=== PATIENT | female | born 1965 | race American Indian/Alaskan Native ===

== ENCOUNTER 2021-04-04 23:46 | Inpatient (IN) | payer MEDICARE ==
--- NOTE | 2021-04-05 00:08 | Emergency Department Report ---
ED Shortness of Breath HPI - General Chief Complaint: Dyspnea/Respdistress Stated Complaint: CHIRAG Time Seen by Provider: 04/04/21 23:52 Source: patient, EMS Mode of arrival: Stretcher Limitations: No Limitations - History of Present Illness Initial Comments: Patient is a 56-year-old female that presents emergency room with complaints of shortness of breath. Patient states her shortness of breath started 45 minutes ago. Patient dates her shortness breath is severe and worsening. Patient states she is compliant with dialysis. Patient states she is compliant with her medications. Patient denies chest pain. Patient states she cannot catch her breath. Patient brought in by EMS. EMS report received. EMS states that they placed the patient on BiPAP and gave the patient Solu-Medrol and albuterol. States patient has a history of CHF Patient denies recent travel. Patient denies recent international travel. Patient denies exposure to the novel coronavirus. Patient denies sick contacts. Patient denies fever and chills. Patient denies cough. Patient denies diarrhea. Patient denies coming in contact with anybody with symptoms of the novel coronavirus.. MD Complaint: shortness of breath -: Sudden Severity: severe Consistency: constant Improves With: oxygen, rest, upright position Worsens With: exertion Known History Of: congestive heart failure Treatments Prior to Arrival: oxygen, bronchodilator, other (Solu-Medrol) - Related Data Home Oxygen Therapy: No Home Medications Medication Instructions Recorded Confirmed Last Taken Metoprolol [Lopressor] 25 mg PO BID 04/27/14 04/27/14 Unknown Potassium Chloride [Klor-Con] 20 meq PO QDAY 04/27/14 04/27/14 Unknown glyBURIDE/METFORMIN HCL 1 tab PO BID 04/27/14 04/27/14 Unknown [Glucovance 5-500 mg] Previous Rx's Medication Instructions Recorded Last Taken Type glyBURIDE [Diabeta] 5 mg PO DAILY #90 tablet 04/27/14 Unknown Rx levoFLOXacin [Levaquin TAB] 500 mg PO QDAY #7 tablet 04/27/14 Unknown Rx Allergies Allergy/AdvReac Type Severity Reaction Status Date / Time No Known Allergies Allergy Verified 04/05/21 04:04 ED Review of Systems ROS: Stated complaint: CHIRAG Other details as noted in HPI Constitutional: denies: chills, fever Eyes: denies: eye pain, eye discharge, vision change ENT: denies: ear pain, throat pain Respiratory: see HPI, shortness of breath, SOB with exertion, SOB at rest. denies: cough, wheezing Cardiovascular: as per HPI, dyspnea on exertion. denies: chest pain, palpitations Endocrine: no symptoms reported Gastrointestinal: denies: abdominal pain, nausea, diarrhea Genitourinary: denies: urgency, dysuria, discharge Musculoskeletal: denies: back pain, joint swelling, arthralgia Skin: denies: rash, lesions Neurological: denies: headache, weakness, paresthesias Psychiatric: denies: anxiety, depression Hematological/Lymphatic: denies: easy bleeding, easy bruising ED Past Medical Hx - Past Medical History Previous Medical History?: Yes Hx Hypertension: Yes Hx Diabetes: Yes Additional medical history: anemia - Surgical History Past Surgical History?: Yes Additional Surgical History: - Family History Family history: no significant - Social History Smoking Status: Current Every Day Smoker (occasional) Substance Use Type: None - Medications Home Medications: Home Medications Medication Instructions Recorded Confirmed Last Taken Type Metoprolol [Lopressor] 25 mg PO BID 04/27/14 04/27/14 Unknown History Potassium Chloride [Klor-Con] 20 meq PO QDAY 04/27/14 04/27/14 Unknown History glyBURIDE [Diabeta] 5 mg PO DAILY #90 tablet 04/27/14 Unknown Rx glyBURIDE/METFORMIN HCL 1 tab PO BID 04/27/14 04/27/14 Unknown History [Glucovance 5-500 mg] levoFLOXacin [Levaquin TAB] 500 mg PO QDAY #7 tablet 04/27/14 Unknown Rx ED Physical Exam - General Limitations: No Limitations General appearance: alert, in distress - Head Head exam: Present: atraumatic, normocephalic - Eye Eye exam: Present: normal appearance - ENT ENT exam: Present: mucous membranes dry - Neck Neck exam: Present: normal inspection - Respiratory Respiratory exam: Present: respiratory distress, rales - Cardiovascular Cardiovascular Exam: Present: regular rate, normal rhythm. Absent: systolic murmur, diastolic murmur, rubs, gallop - GI/Abdominal GI/Abdominal exam: Present: soft, normal bowel sounds - Extremities Exam Extremities exam: Present: normal inspection - Back Exam Back exam: Present: normal inspection - Neurological Exam Neurological exam: Present: alert, oriented X3 - Psychiatric Psychiatric exam: Present: normal affect, normal mood - Skin Skin exam: Present: warm, dry, intact, normal color. Absent: rash ED Course Vital Signs 04/04/21 04/05/21 04/05/21 23:58 00:00 00:16 Temperature Pulse Rate 122 H 119 H 99 H Respiratory 30 H 30 H 23 Rate Blood Pressure 204/102 O2 Sat by Pulse 100 82 L Oximetry 04/05/21 04/05/21 04/05/21 00:19 00:36 00:43 Temperature Pulse Rate 91 H 99 H Respiratory 23 22 28 H Rate Blood Pressure 162/84 O2 Sat by Pulse 99 98 99 Oximetry 04/05/21 04/05/21 04/05/21 00:46 01:00 01:16 Temperature Pulse Rate 99 H 95 H 101 H Respiratory 19 23 26 H Rate Blood Pressure 170/80 164/79 165/84 O2 Sat by Pulse 99 99 100 Oximetry 04/05/21 04/05/21 04/05/21 01:30 01:44 01:46 Temperature Pulse Rate 95 H 95 H 93 H Respiratory 26 H 24 Rate Blood Pressure 185/98 173/86 O2 Sat by Pulse 99 100 Oximetry 04/05/21 04/05/21 04/05/21 02:00 02:16 02:30 Temperature Pulse Rate 91 H 86 88 Respiratory 20 20 20 Rate Blood Pressure 172/84 173/87 163/80 O2 Sat by Pulse 100 100 100 Oximetry 04/05/21 04/05/21 04/05/21 02:40 02:50 03:00 Temperature Pulse Rate 92 H 87 88 Respiratory 22 18 20 Rate Blood Pressure 163/80 185/92 184/91 O2 Sat by Pulse 100 100 100 Oximetry 04/05/21 04/05/21 03:15 03:23 Temperature 97.3 F L Pulse Rate 95 H Respiratory 22 Rate Blood Pressure O2 Sat by Pulse 100 Oximetry - Reevaluation(s) Reevaluation #1: Patient states she is feeling better. Patient is on BiPAP. 04/05/21 00:26 Reevaluation #2: Patient resting in the room. Patient states she is feeling better. Patient's vital signs have improved. Patient's oxygen stable. Patient is still on BiPAP. 04/05/21 01:07 Reevaluation #3: I discussed all results with patient. I discussed plan of care with patient. Patient agrees with plan of care and admission. Patient to be admitted to the hospitalist service. 04/05/21 01:58 - Consultations Consultation #1: Hospitalist consulted for admission. Hospitalist to admit patient. 04/05/21 02:04 ED Medical Decision Making - Lab Data Result diagrams: 04/05/21 01:08 04/05/21 01:08 - EKG Data -: EKG Interpreted by Me EKG shows normal: sinus rhythm, axis, intervals, QRS complexes, ST-T waves Rate: normal - Radiology Data Radiology results: report reviewed, image reviewed interpreted by me: Chest x-ray: No pneumonia, no pneumothorax, no foreign body, no osseous findings, pulmonary edema and congestive changes. CHEST 1 VIEW 0034 INDICATION / CLINICAL INFORMATION: Dyspnea COMPARISON: None available. FINDINGS: SUPPORT DEVICES: None HEART / MEDIASTINUM: Cardiomegaly LUNGS / PLEURA: Congestive changes and pulmonary edema are noted. Bibasilar infiltrates may relate to the congestive process and edema but I cannot exclude pneumonitis. Small bilateral pleural effusions are seen, more on the right. No pneumothorax. ADDITIONAL FINDINGS: No significant additional findings. - Medical Decision Making Patient is a 56-year-old female that presents emergency room with EMS for shortness of breath. Patient found to have breast wellness evaluation. Patient brought in by EMS and EMS had the patient on CPAP and gave the patient albuterol and Solu-Medrol. Patient placed on our BiPAP immediately after initial evaluation. Patient responded well to BiPAP. Patient oxygenation and work to breathe improved. Patient's vital signs improved. Patient had labs done which were consistent with end-stage renal disease. Patient had a chest x-ray which was noted to have cardiomegaly with pulmonary edema. Patient had EKG done which shows normal sinus rhythm and no acute ST changes. I personally reviewed the chest x-ray and the EKG. Patient admitted to the hospital service for further evaluation treatment. Critical care time documented due to the multiple reassessments, prolonged time at the bedside, interpretation of diagnostics and labs. - Differential Diagnosis CHF, pneumonia, volume overload, shortness of breath Critical Care Time: Yes Critical care time in (mins) excluding proc time.: 35 Critical care attestation.: If time is entered above; I have spent that time in minutes in the direct care of this critically ill patient, excluding procedure time. Critical Care Time: 35 minutes ED Disposition Clinical Impression: Shortness of breath, ESRD (end stage renal disease) on dialysis Respiratory failure Qualifiers: Chronicity: acute Respiratory failure complication: hypoxia Qualified Code(s): J96.01 - Acute respiratory failure with hypoxia CHF exacerbation Qualifiers: Heart failure type: unspecified Qualified Code(s): I50.9 - Heart failure, unspecified Pulmonary edema Qualifiers: Chronicity: acute Qualified Code(s): J81.0 - Acute pulmonary edema Anemia Qualifiers: Anemia type: unspecified type Qualified Code(s): D64.9 - Anemia, unspecified Disposition: DC-09 OP ADMIT IP TO THIS HOSP Is pt being admited?: Yes Does the pt Need Aspirin: No Condition: Critical Time of Disposition: 02:14
--- NOTE | 2021-04-05 01:00 | XRay Report ---
CHEST 1 VIEW 0034 INDICATION / CLINICAL INFORMATION: Dyspnea COMPARISON: None available. FINDINGS: SUPPORT DEVICES: None HEART / MEDIASTINUM: Cardiomegaly LUNGS / PLEURA: Congestive changes and pulmonary edema are noted. Bibasilar infiltrates may relate to the congestive process and edema but I cannot exclude pneumonitis. Small bilateral pleural effusions are seen, more on the right. No pneumothorax. ADDITIONAL FINDINGS: No significant additional findings. Signer Name: Curly Crook MD Signed: 04/05/2021 12:56 AM Workstation Name: [id number]
[2021-04-05 01:16] LABS: Hematocrit 23.6 % (30.3-42.9); Hemoglobin 7.9 gm/dl (10.1-14.3); Mean Corpuscular HGB Conc 34 % (30-34); Mean Corpuscular Volume 90 fl (79-97); Platelet Count 172 K/mm3 (140-440); Red Blood Count 2.62 M/mm3 (3.65-5.03); Red Cell Distribution Width 16.5 % (13.2-15.2)
[2021-04-05 01:40] LABS: Albumin 3.9 g/dL (3.9-5); Calcium 8.9 mg/dL (8.4-10.2)
[2021-04-05 01:59] LABS: Anisocytosis RARE; Total Cells Counted 100
[2021-04-05] MEDS ORDERED: ONDANSETRON 4 MG/2 ML INJ IV PRN (02:55)
[2021-04-05] MEDS ORDERED: ACETAMINOPHEN 325 MG TAB PO PRN (02:55)
[2021-04-05] MEDS ORDERED: DEXTROSE 50% IN WATER (25GM) 50 ML SYRINGE IV PRN ×2 (02:55→03:45)
[2021-04-05] MEDS ORDERED: oxyCODONE /ACETAMINOPHEN 5-325MG TAB PO PRN (02:55)
[2021-04-05] MEDS ORDERED: ALBUTEROL 2.5 MG/3 ML NEBU IH PRN (02:55)
--- NOTE | 2021-04-05 03:56 | History and Physical Report ---
History of Present Illness Date of examination: 04/05/21 Date of admission: 04/05/21 02:15 Chief complaint: Dyspnea Respiratory distress History of present illness: 56-year-old female with past medical history of CHF and end-stage renal disease on hemodialysis was brought emergency room with complaints of shortness of breath that started 45 minutes ago. Patient dates her shortness breath is severe and worsening. Patient states she is compliant with dialysis. Patient states she is compliant with her medications. Patient denies chest pain. Patient states she cannot catch her breath. EMS states that they placed the patient on BiPAP and gave the patient Solu-Medrol and albuterol. In the emergency room patient is found to have acute CHF exacerbation. We will put the patient on BiPAP also patient BUN is 45 and creatinine 5.6 will consult nephrology for hemodialysis in the morning Past History Past Medical History: anemia, diabetes, ESRD, heart failure, hypertension Medications and Allergies Allergies Allergy/AdvReac Type Severity Reaction Status Date / Time No Known Allergies Allergy Unverified 04/22/14 17:54 Home Medications Medication Instructions Recorded Confirmed Last Taken Type Metoprolol [Lopressor] 25 mg PO BID 04/27/14 04/27/14 Unknown History Potassium Chloride [Klor-Con] 20 meq PO QDAY 04/27/14 04/27/14 Unknown History glyBURIDE [Diabeta] 5 mg PO DAILY #90 tablet 04/27/14 Unknown Rx glyBURIDE/METFORMIN HCL 1 tab PO BID 04/27/14 04/27/14 Unknown History [Glucovance 5-500 mg] levoFLOXacin [Levaquin TAB] 500 mg PO QDAY #7 tablet 04/27/14 Unknown Rx Active Meds: Active Medications Acetaminophen (Acetaminophen 325 Mg Tab) 650 mg PO Q4H PRN PRN Reason: Pain MILD(1-3)/Fever >100.5/JAMA Albuterol (Albuterol 2.5 Mg/3 Ml Nebu) 2.5 mg IH Q3HRT PRN PRN Reason: Shortness Of Breath Albuterol/Ipratropium (Ipratropium/Albuterol Sulfate 3 Ml Ampul.Neb) 1 ampul IH Q6HRT PETE Budesonide (Budesonide 0.5 Mg/2 Ml Nebu) 0.5 mg IH Q12HRT PETE Dextrose (Dextrose 50% In Water (25gm) 50 Ml Syringe) 0 ml IV Q30MIN PRN; Protocol PRN Reason: Hypoglycemia Docusate Sodium (Docusate Sodium 100 Mg Cap) 100 mg PO BID [facility] Famotidine (Famotidine 20 Mg/2 Ml Inj) 10 mg IV BID [facility] Insulin Human Lispro (Insulin Lispro 100 Unit/Ml) 0 unit SUB-Q ACHS PETE; Protocol Nicotine (Nicotine 14 Mg/24 Hr Patch) 14 mg TD ONCE ONE Stop: 04/05/21 04:00 Nicotine (Nicotine 14 Mg/24 Hr Patch) 14 mg TD QDAY PETE Ondansetron HCl (Ondansetron 4 Mg/2 Ml Inj) 4 mg IV Q6H PRN PRN Reason: Nausea And Vomiting Oxycodone/Acetaminophen (Oxycodone /Acetaminophen 5-325mg Tab) 1 tab PO Q6H PRN PRN Reason: Pain, Moderate (4-6) Sodium Chloride (Sodium Chloride 0.9% 10 Ml Flush Syringe) 10 ml IV BID PETE Sodium Chloride (Sodium Chloride 0.9% 10 Ml Flush Syringe) 10 ml IV PRN PRN PRN Reason: LINE FLUSH Review of Systems Cardiovascular: edema, shortness of breath, dyspnea on exertion Respiratory: shortness of breath, dyspnea on exertion Exam - Constitutional Vitals: Temp Pulse Resp BP Pulse Ox 86 20 173/87 100 04/05/21 02:16 04/05/21 02:16 04/05/21 02:16 04/05/21 02:16 General appearance: Present: no acute distress, well-nourished - EENT Eyes: Present: PERRL ENT: hearing intact, clear oral mucosa - Neck Neck: Present: supple, normal ROM - Respiratory Respiratory effort: normal Respiratory: bilateral: rales - Cardiovascular Heart Sounds: Present: S1 & S2. Absent: rub, click - Extremities Extremities: pulses symmetrical, No edema Extremity abnormal: edema Peripheral Pulses: within normal limits - Abdominal General gastrointestinal: Present: soft, non-tender, non-distended, normal bowel sounds Female genitourinary: Present: normal - Integumentary Integumentary: Present: clear, warm, dry - Musculoskeletal Musculoskeletal: gait normal, strength equal bilaterally - Psychiatric Psychiatric: appropriate mood/affect, intact judgment & insight - Neurologic Neurologic: CNII-XII intact, moves all extremities HEART Score - HEART Score Troponin: Troponin T 0.025 ng/mL (0.00-0.029) 04/05/21 01:08 Results - Labs CBC & Chem 7: 04/05/21 01:08 04/05/21 01:08 Labs: Laboratory Last Values WBC 11.8 K/mm3 (4.5-11.0) H 04/05/21 01:08 RBC 2.62 M/mm3 (3.65-5.03) L 04/05/21 01:08 Hgb 7.9 gm/dl (10.1-14.3) L 04/05/21 01:08 Hct 23.6 % (30.3-42.9) L 04/05/21 01:08 MCV 90 fl (79-97) 04/05/21 01:08 MCH 30 pg (28-32) 04/05/21 01:08 MCHC 34 % (30-34) 04/05/21 01:08 RDW 16.5 % (13.2-15.2) H 04/05/21 01:08 Plt Count 172 K/mm3 (140-440) 04/05/21 01:08 Add Manual Diff Complete 04/05/21 01:08 Total Counted 100 04/05/21 01:08 Seg Neutrophils % Open Developer Operator 04/05/21 01:08 Seg Neuts % (Manual) 93.0 % (40.0-70.0) H 04/05/21 01:08 Lymphocytes % (Manual) 4.0 % (13.4-35.0) L 04/05/21 01:08 Monocytes % (Manual) 3.0 % (0.0-7.3) 04/05/21 01:08 Nucleated RBC % Not Reportable 04/05/21 01:08 Seg Neutrophils # Man 11.0 K/mm3 (1.8-7.7) H 04/05/21 01:08 Band Neutrophils # 0.0 K/mm3 04/05/21 01:08 Lymphocytes # (Manual) 0.5 K/mm3 (1.2-5.4) L 04/05/21 01:08 Abs React Lymphs (Man) 0.0 K/mm3 04/05/21 01:08 Monocytes # (Manual) 0.4 K/mm3 (0.0-0.8) 04/05/21 01:08 Eosinophils # (Manual) 0.0 K/mm3 (0.0-0.4) 04/05/21 01:08 Basophils # (Manual) 0.0 K/mm3 (0.0-0.1) 04/05/21 01:08 Metamyelocytes # 0.0 K/mm3 04/05/21 01:08 Myelocytes # 0.0 K/mm3 04/05/21 01:08 Promyelocytes # 0.0 K/mm3 04/05/21 01:08 Blast Cells # 0.0 K/mm3 04/05/21 01:08 WBC Morphology Not Reportable 04/05/21 01:08 Hypersegmented Neuts Not Reportable 04/05/21 01:08 Hyposegmented Neuts Not Reportable 04/05/21 01:08 Hypogranular Neuts Not Reportable 04/05/21 01:08 Smudge Cells Not Reportable 04/05/21 01:08 Toxic Granulation Not Reportable 04/05/21 01:08 Toxic Vacuolation Not Reportable 04/05/21 01:08 Dohle Bodies Not Reportable 04/05/21 01:08 Pelger-Huet Anomaly Not Reportable 04/05/21 01:08 Birgit Rods Not Reportable 04/05/21 01:08 Platelet Estimate Not Reportable 04/05/21 01:08 Clumped Platelets Not Reportable 04/05/21 01:08 Plt Clumps, EDTA Not Reportable 04/05/21 01:08 Large Platelets Not Reportable 04/05/21 01:08 Giant Platelets Not Reportable 04/05/21 01:08 Platelet Satelliting Not Reportable 04/05/21 01:08 Plt Morphology Comment Not Reportable 04/05/21 01:08 RBC Morphology Not Reportable 04/05/21 01:08 Dimorphic RBCs Not Reportable 04/05/21 01:08 Polychromasia Not Reportable 04/05/21 01:08 Hypochromasia Not Reportable 04/05/21 01:08 Poikilocytosis Not Reportable 04/05/21 01:08 Anisocytosis Rare 04/05/21 01:08 Microcytosis Not Reportable 04/05/21 01:08 Macrocytosis Not Reportable 04/05/21 01:08 Spherocytes Not Reportable 04/05/21 01:08 Pappenheimer Bodies Not Reportable 04/05/21 01:08 Sickle Cells Not Reportable 04/05/21 01:08 Target Cells Not Reportable 04/05/21 01:08 Tear Drop Cells Not Reportable 04/05/21 01:08 Ovalocytes Not Reportable 04/05/21 01:08 Helmet Cells Not Reportable 04/05/21 01:08 [place] Bodies Not Reportable 04/05/21 01:08 [place] Rings Not Reportable 04/05/21 01:08 Tyson Cells Not Reportable 04/05/21 01:08 Bite Cells Not Reportable 04/05/21 01:08 Crenated Cell Not Reportable 04/05/21 01:08 Elliptocytes Not Reportable 04/05/21 01:08 Acanthocytes (Spur) Not Reportable 04/05/21 01:08 Rouleaux Not Reportable 04/05/21 01:08 Hemoglobin C Crystals Not Reportable 04/05/21 01:08 Schistocytes Not Reportable 04/05/21 01:08 Malaria parasites Not Reportable 04/05/21 01:08 Parrish Bodies Not Reportable 04/05/21 01:08 Hem Pathologist Commnt No 04/05/21 01:08 Sodium 137 mmol/L (137-145) 04/05/21 01:08 Potassium 3.0 mmol/L (3.6-5.0) L 04/05/21 01:08 Chloride 98.6 mmol/L (98-107) 04/05/21 01:08 Carbon Dioxide 25 mmol/L (22-30) 04/05/21 01:08 Anion Gap 16 mmol/L 04/05/21 01:08 BUN 45 mg/dL (7-17) H 04/05/21 01:08 Creatinine 5.6 mg/dL (0.6-1.2) H 04/05/21 01:08 Estimated GFR 10 ml/min 04/05/21 01:08 BUN/Creatinine Ratio 8 % 04/05/21 01:08 Glucose 239 mg/dL (65-100) H 04/05/21 01:08 Calcium 8.9 mg/dL (8.4-10.2) 04/05/21 01:08 Total Bilirubin 0.40 mg/dL (0.1-1.2) 04/05/21 01:08 AST 55 units/L (5-40) H 04/05/21 01:08 ALT 51 units/L (7-56) 04/05/21 01:08 Alkaline Phosphatase 93 units/L (35-129) 04/05/21 01:08 Troponin T 0.025 ng/mL (0.00-0.029) 04/05/21 01:08 Total Protein 6.7 g/dL (6.3-8.2) 04/05/21 01:08 Albumin 3.9 g/dL (3.9-5) 04/05/21 01:08 Albumin/Globulin Ratio 1.4 % 04/05/21 01:08 - Imaging and Cardiology Chest x-ray: report reviewed Assessment and Plan VTE prophylaxis?: Chemical Plan of care discussed with patient/family: Yes - Patient Problems (1) CHF exacerbation Current Visit: Yes Status: Acute Qualifiers: Heart failure type: unspecified Qualified Code(s): I50.9 - Heart failure, unspecified Plan to address problem: Admit the patient to the ICU overnight. Put the patient on BiPAP with. We will put the patient on CHF pathway. Fluid restriction. Intake output. DuoNeb by nebulizer every 4 hours as needed. Will consult nephrology for hemodialysis. We also order echocardiogram. If needed will consult cardiology in the morning. We will continue the home medication (2) Pulmonary edema Current Visit: Yes Status: Acute Qualifiers: Chronicity: acute Qualified Code(s): J81.0 - Acute pulmonary edema Plan to address problem: Put the patient on BiPAP with. We will put the patient on CHF pathway. Fluid restriction. Intake output. DuoNeb by nebulizer every 4 hours as needed. Will consult nephrology for hemodialysis. We also order echocardiogram. If needed will consult cardiology in the morning. We will continue the home medication (3) ESRD (end stage renal disease) on dialysis Current Visit: Yes Status: Acute Plan to address problem: We will consult nephrology for hemodialysis. Repeat BMP in the morning. (4) Hypertension Current Visit: Yes Status: Acute Plan to address problem: Metoprolol 25 mg p.o. twice daily. Hydralazine 10 mg IV every 6 hours as needed. We will monitor the blood pressure closely (5) Diabetes 1.5, managed as type 2 Current Visit: Yes Status: Acute Plan to address problem: We will put the patient on 1800 kcal ADA diet. We will continue glyburide 5 mg p.o. daily. Glyburide/metformin 1 tablet p.o. twice daily. We put the patient on Humalog sliding scale with Accu-Chek before meals and at bedtime moderate dose coverage. Will consult diabetic education (6) Anemia Current Visit: Yes Status: Acute Plan to address problem: Anemia most likely secondary to chronic kidney disease. We will recheck the hemoglobin in the morning (7) Shortness of breath Current Visit: Yes Status: Acute Plan to address problem: Put the patient on BiPAP with. We will put the patient on CHF pathway. Fluid restriction. Intake output. DuoNeb by nebulizer every 4 hours as needed. Will consult nephrology for hemodialysis. We also order echocardiogram. If needed will consult cardiology in the morning. We will continue the home medication (8) DVT prophylaxis Current Visit: Yes Status: Acute Plan to address problem: Heparin 5000 units subcu every 8 hours for DVT prophylaxis and Protonix 40 mg p.o. daily for GI prophylaxis. Patient is a full code
[2021-04-05] MEDS ORDERED: NICOTINE 14 MG/24 HR PATCH TD ONE (03:59)
[2021-04-05] MEDS ORDERED: hydrALAZINE 20 MG/1 ML INJ IV PRN (04:06)
[2021-04-05 04:09] LABS: Chol/HDL Ratio 2.13 %
[2021-04-05] MEDS: HEPARIN 5,000 UNIT/1 ML VIAL SUB-Q SCH ×3 (05:37→23:02)
--- NOTE | 2021-04-05 07:02 | Consultation ---
History of Present Illness - Reason for Consult Consult date: 04/05/21 end stage renal disease Requesting physician: SHERRILL TUTTLE - History of Present Illness 56-year-old female with past medical history of CHF and end-stage renal disease on hemodialysis was brought emergency room with complaints of shortness of breath that started 45 minutes ago. Patient dates her shortness breath is severe and worsening. Patient states she is compliant with dialysis. Patient states she is compliant with her medications. Patient denies chest pain. Patient states she cannot catch her breath. EMS states that they placed the patient on BiPAP and gave the patient Solu-Medrol and albuterol. In the emergency room patient is found to have acute CHF exacerbation. We will put the patient on BiPAP also patient BUN is 45 and creatinine 5.6 will consult nephrology for hemodialysis in the morning Past History Past Medical History: anemia, diabetes, ESRD, heart failure, hypertension Review of Systems Cardiovascular: edema, shortness of breath, dyspnea on exertion Respiratory: shortness of breath, dyspnea on exertion Past History Past Medical History: anemia, diabetes, ESRD, heart failure, hypertension Medications and Allergies Allergies Allergy/AdvReac Type Severity Reaction Status Date / Time No Known Allergies Allergy Verified 04/05/21 04:04 Home Medications Medication Instructions Recorded Confirmed Last Taken Type Metoprolol [Lopressor] 25 mg PO BID 04/27/14 04/27/14 Unknown History Potassium Chloride [Klor-Con] 20 meq PO QDAY 04/27/14 04/27/14 Unknown History glyBURIDE [Diabeta] 5 mg PO DAILY #90 tablet 04/27/14 Unknown Rx glyBURIDE/METFORMIN HCL 1 tab PO BID 04/27/14 04/27/14 Unknown History [Glucovance 5-500 mg] levoFLOXacin [Levaquin TAB] 500 mg PO QDAY #7 tablet 04/27/14 Unknown Rx Active Meds: Active Medications Acetaminophen (Acetaminophen 325 Mg Tab) 650 mg PO Q4H PRN PRN Reason: Pain MILD(1-3)/Fever >100.5/JAMA Albuterol (Albuterol 2.5 Mg/3 Ml Nebu) 2.5 mg IH Q3HRT PRN PRN Reason: Shortness Of Breath Albuterol/Ipratropium (Ipratropium/Albuterol Sulfate 3 Ml Ampul.Neb) 1 ampul IH Q6HRT PETE Budesonide (Budesonide 0.5 Mg/2 Ml Nebu) 0.5 mg IH Q12HRT [facility] Dextrose (Dextrose 50% In Water (25gm) 50 Ml Syringe) 0 ml IV Q30MIN PRN; Protocol PRN Reason: Hypoglycemia Docusate Sodium (Docusate Sodium 100 Mg Cap) 100 mg PO BID [facility] Heparin Sodium (Porcine) (Heparin 5,000 Unit/1 Ml Vial) 5,000 unit SUB-Q Q8HR PETE Last Admin: 04/05/21 05:37 Dose: 5,000 unit Documented by: Hydralazine HCl (Hydralazine 20 Mg/1 Ml Inj) 10 mg IV Q6H PRN PRN Reason: htn Last Admin: 04/05/21 05:36 Dose: 10 mg Documented by: Levofloxacin/Dextrose (Levaquin 750mg/150ml) 750 mg in 150 mls @ 100 mls/hr IV Q48HR [facility]; Protocol Insulin Human Lispro (Insulin Lispro 100 Unit/Ml) 0 unit SUB-Q ACHS [facility]; Protocol Metoprolol Tartrate (Metoprolol Tartrate 25 Mg Tab) 25 mg PO BID [facility] Nicotine (Nicotine 14 Mg/24 Hr Patch) 14 mg TD QDAY [facility] Ondansetron HCl (Ondansetron 4 Mg/2 Ml Inj) 4 mg IV Q6H PRN PRN Reason: Nausea And Vomiting Oxycodone/Acetaminophen (Oxycodone /Acetaminophen 5-325mg Tab) 1 tab PO Q6H PRN PRN Reason: Pain, Moderate (4-6) Pantoprazole Sodium (Pantoprazole 40 Mg Inj) 40 mg IV BID [facility] Sodium Chloride (Sodium Chloride 0.9% 10 Ml Flush Syringe) 10 ml IV BID [facility] Sodium Chloride (Sodium Chloride 0.9% 10 Ml Flush Syringe) 10 ml IV PRN PRN PRN Reason: LINE FLUSH Exam - Vital Signs Vital signs: Vital Signs Pulse Resp 122 H 30 H 04/04/21 23:58 04/04/21 23:58 - Physical Exam Narrative exam: General appearance: Present: no acute distress, well-nourished - EENT Eyes: Present: PERRL ENT: hearing intact, clear oral mucosa - Neck Neck: Present: supple, normal ROM - Respiratory Respiratory effort: normal Respiratory: bilateral: rales - Cardiovascular Heart Sounds: Present: S1 & S2. Absent: rub, click - Extremities Extremities: pulses symmetrical, No edema Extremity abnormal: edema Peripheral Pulses: within normal limits - Abdominal General gastrointestinal: Present: soft, non-tender, non-distended, normal bowel sounds Female genitourinary: Present: normal - Integumentary Integumentary: Present: clear, warm, dry - Musculoskeletal Musculoskeletal: gait normal, strength equal bilaterally - Psychiatric Psychiatric: appropriate mood/affect, intact judgment & insight - Neurologic Neurologic: CNII-XII intact, moves all extremities Results - Lab Results 04/05/21 01:08 04/05/21 01:08 Most recent lab results Calcium 8.9 mg/dL (8.4-10.2) 04/05/21 01:08 Assessment and Plan Impression: * ESRD * shortness of breath * volume overload * HTN * Type 2 DM * Anemia in ESRD Plan: * HD today and in am for volume control * uf as tolerated with HD * daily lytes * avoid nephrotoxins * epogen with hd * bp control, amend meds as needed
[2021-04-05] MEDS ORDERED: ALBUMIN HUMAN 25% (25 GM/100 ML) INJ IV PRN (07:07)
[2021-04-05] MEDS ORDERED: EPOETIN ALFA-EPBX 10,000 UNIT/1 ML VIAL IV PRN (07:07)
[2021-04-05] MEDS ORDERED: SODIUM CHLORIDE 0.9% 100 ML IV PRN (07:07)
[2021-04-05] MEDS ORDERED: glyBURIDE 5 MG TAB PO SCH (08:00)
[2021-04-05] MEDS: DOCUSATE SODIUM 100 MG CAP PO SCH ×2 (09:15→23:02)
[2021-04-05] MEDS: levoFLOXacin 500 MG TAB PO SCH (09:15)
[2021-04-05] MEDS: METOPROLOL TARTRATE 25 MG TAB PO SCH ×2 (09:15→23:03)
[2021-04-05] MEDS: cloNIDine 0.1 MG TAB PO SCH ×2 (09:15→23:03)
[2021-04-05] MEDS: PANTOPRAZOLE 40 MG TAB PO SCH (09:16)
[2021-04-05] MEDS: SPIRONOLACTONE 50 MG TAB PO SCH (09:16)
[2021-04-05] MEDS: NICOTINE 14 MG/24 HR PATCH TD SCH (09:18)
[2021-04-05] MEDS: INSULIN LISPRO 100 UNIT/ML SUB-Q SCH ×4 (09:19→22:16)
[2021-04-05] MEDS: BUDESONIDE 0.5 MG/2 ML NEBU IH SCH ×2 (09:44→20:43)
[2021-04-05] MEDS: IPRATROPIUM/ALBUTEROL SULFATE 3 ML AMPUL.NEB IH SCH ×3 (09:44→20:43)
[2021-04-05] MEDS ORDERED: METFORMIN HCL PO SCH (10:00)
[2021-04-05] MEDS ORDERED: GLYBURIDE PO SCH (10:00)
[2021-04-05] MEDS ORDERED: FAMOTIDINE 20 MG/2 ML INJ IV SCH (10:00)
[2021-04-05 11:07] LABS: Hepatitis B Surface Antigen Non-Reactive (Negative); Hepatitis C Virus Antibody Non-Reactive (NonReactive)
--- NOTE | 2021-04-05 11:29 | Progress Note ---
Assessment and Plan Assessment and plan: -- CHF exacerbation Current Visit: Yes Status: Acute Continue antifailure medications, input and output monitoring Fluid overload, supportive care, cardiology consult if needed -- pulmonary edema Current Visit: Yes Status: Acute due to missed hemodialysis, HD per schedule Counseled the importance of adhering to the treatment plan --ESRD (end stage renal disease) on dialysis Current Visit: Yes Status: Acute We will consult nephrology for hemodialysis. Repeat BMP in the morning. --Hypertension/continue antihypertensives Current Visit: Yes Status: Metoprolol 25 mg p.o. twice daily. Hydralazine 10 mg IV every 6 hours as needed. 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 We will recheck the hemoglobin in the morning --Shortness of breath Current Visit: Yes Status: Acute Multifactorial due to fluid overload, pulmonary edema, congestive heart failure Treatment underlying cause --DVT prophylaxis Current Visit: Yes Status: Acute Heparin 5000 units subcu every 8 hours for DVT prophylaxis and GI prophylaxis ;Protonix 40 mg p.o. daily f Patient is a full code Closely monitor the patient and adjust management as needed Plan of care reviewed with the patient and her nurse Supervisor [employer] recommendations noted and appreciated 04/05/2021; hemodialysis per schedule, monitor H&H Patient may be transferred out of [facility] [place] if stable History Interval history: I have seen and examined the patient at the bedside Patient's chart and medications reviewed Patient complains of mild shortness of breath Vital signs noted Hospitalist Physical - Constitutional Vitals: Temp Pulse Resp BP Pulse Ox 97.3 F L 81 26 H 187/97 97 04/05/21 03:15 04/05/21 11:00 04/05/21 11:00 04/05/21 11:00 04/05/21 11:00 General appearance: Present: no acute distress, well-nourished - EENT Eyes: Present: PERRL, EOM intact - Neck Neck: Present: supple, normal ROM - Respiratory Respiratory effort: normal Respiratory: bilateral: diminished, rhonchi, negative: rales, wheezing - Cardiovascular Rhythm: regular Heart Sounds: Present: S1 & S2 - Extremities Extremities: no ischemia, No edema - Abdominal General gastrointestinal: soft, non-tender, non-distended, normal bowel sounds - Integumentary Integumentary: Present: clear, warm - Psychiatric Psychiatric: appropriate mood/affect, cooperative - Neurologic Neurologic: CNII-XII intact, moves all extremities HEART Score - HEART Score Troponin: Troponin T 0.025 ng/mL (0.00-0.029) 04/05/21 01:08 Results - Labs CBC & Chem 7: 04/05/21 01:08 04/05/21 01:08 Labs: Laboratory Last Values WBC 11.8 K/mm3 (4.5-11.0) H 04/05/21 01:08 RBC 2.62 M/mm3 (3.65-5.03) L 04/05/21 01:08 Hgb 7.9 gm/dl (10.1-14.3) L 04/05/21 01:08 Hct 23.6 % (30.3-42.9) L 04/05/21 01:08 MCV 90 fl (79-97) 04/05/21 01:08 MCH 30 pg (28-32) 04/05/21 01:08 MCHC 34 % (30-34) 04/05/21 01:08 RDW 16.5 % (13.2-15.2) H 04/05/21 01:08 Plt Count 172 K/mm3 (140-440) 04/05/21 01:08 Add Manual Diff Complete 04/05/21 01:08 Total Counted 100 04/05/21 01:08 Seg Neutrophils % Meat Team Member 04/05/21 01:08 Seg Neuts % (Manual) 93.0 % (40.0-70.0) H 04/05/21 01:08 Lymphocytes % (Manual) 4.0 % (13.4-35.0) L 04/05/21 01:08 Monocytes % (Manual) 3.0 % (0.0-7.3) 04/05/21 01:08 Nucleated RBC % Not Reportable 04/05/21 01:08 Seg Neutrophils # Man 11.0 K/mm3 (1.8-7.7) H 04/05/21 01:08 Band Neutrophils # 0.0 K/mm3 04/05/21 01:08 Lymphocytes # (Manual) 0.5 K/mm3 (1.2-5.4) L 04/05/21 01:08 Abs React Lymphs (Man) 0.0 K/mm3 04/05/21 01:08 Monocytes # (Manual) 0.4 K/mm3 (0.0-0.8) 04/05/21 01:08 Eosinophils # (Manual) 0.0 K/mm3 (0.0-0.4) 04/05/21 01:08 Basophils # (Manual) 0.0 K/mm3 (0.0-0.1) 04/05/21 01:08 Metamyelocytes # 0.0 K/mm3 04/05/21 01:08 Myelocytes # 0.0 K/mm3 04/05/21 01:08 Promyelocytes # 0.0 K/mm3 04/05/21 01:08 Blast Cells # 0.0 K/mm3 04/05/21 01:08 WBC Morphology Not Reportable 04/05/21 01:08 Hypersegmented Neuts Not Reportable 04/05/21 01:08 Hyposegmented Neuts Not Reportable 04/05/21 01:08 Hypogranular Neuts Not Reportable 04/05/21 01:08 Smudge Cells Not Reportable 04/05/21 01:08 Toxic Granulation Not Reportable 04/05/21 01:08 Toxic Vacuolation Not Reportable 04/05/21 01:08 Dohle Bodies Not Reportable 04/05/21 01:08 Pelger-Huet Anomaly Not Reportable 04/05/21 01:08 Birgit Rods Not Reportable 04/05/21 01:08 Platelet Estimate Not Reportable 04/05/21 01:08 Clumped Platelets Not Reportable 04/05/21 01:08 Plt Clumps, EDTA Not Reportable 04/05/21 01:08 Large Platelets Not Reportable 04/05/21 01:08 Giant Platelets Not Reportable 04/05/21 01:08 Platelet Satelliting Not Reportable 04/05/21 01:08 Plt Morphology Comment Not Reportable 04/05/21 01:08 RBC Morphology Not Reportable 04/05/21 01:08 Dimorphic RBCs Not Reportable 04/05/21 01:08 Polychromasia Not Reportable 04/05/21 01:08 Hypochromasia Not Reportable 04/05/21 01:08 Poikilocytosis Not Reportable 04/05/21 01:08 Anisocytosis Rare 04/05/21 01:08 Microcytosis Not Reportable 04/05/21 01:08 Macrocytosis Not Reportable 04/05/21 01:08 Spherocytes Not Reportable 04/05/21 01:08 Pappenheimer Bodies Not Reportable 04/05/21 01:08 Sickle Cells Not Reportable 04/05/21 01:08 Target Cells Not Reportable 04/05/21 01:08 Tear Drop Cells Not Reportable 04/05/21 01:08 Ovalocytes Not Reportable 04/05/21 01:08 Helmet Cells Not Reportable 04/05/21 01:08 [place] Bodies Not Reportable 04/05/21 01:08 [place] Rings Not Reportable 04/05/21 01:08 Tyson Cells Not Reportable 04/05/21 01:08 Bite Cells Not Reportable 04/05/21 01:08 Crenated Cell Not Reportable 04/05/21 01:08 Elliptocytes Not Reportable 04/05/21 01:08 Acanthocytes (Spur) Not Reportable 04/05/21 01:08 Rouleaux Not Reportable 04/05/21 01:08 Hemoglobin C Crystals Not Reportable 04/05/21 01:08 Schistocytes Not Reportable 04/05/21 01:08 Malaria parasites Not Reportable 04/05/21 01:08 Parrish Bodies Not Reportable 04/05/21 01:08 Hem Pathologist Commnt No 04/05/21 01:08 Sodium 137 mmol/L (137-145) 04/05/21 01:08 Potassium 3.0 mmol/L (3.6-5.0) L 04/05/21 01:08 Chloride 98.6 mmol/L (98-107) 04/05/21 01:08 Carbon Dioxide 25 mmol/L (22-30) 04/05/21 01:08 Anion Gap 16 mmol/L 04/05/21 01:08 BUN 45 mg/dL (7-17) H 04/05/21 01:08 Creatinine 5.6 mg/dL (0.6-1.2) H 04/05/21 01:08 Estimated GFR 10 ml/min 04/05/21 01:08 BUN/Creatinine Ratio 8 % 04/05/21 01:08 Glucose 239 mg/dL (65-100) H 04/05/21 01:08 POC Glucose 204 mg/dL (70-105) H 04/05/21 07:36 Hemoglobin A1c 5.0 % (4-6) 04/05/21 03:37 Calcium 8.9 mg/dL (8.4-10.2) 04/05/21 01:08 Total Bilirubin 0.40 mg/dL (0.1-1.2) 04/05/21 01:08 AST 55 units/L (5-40) H 04/05/21 01:08 ALT 51 units/L (7-56) 04/05/21 01:08 Alkaline Phosphatase 93 units/L (35-129) 04/05/21 01:08 Troponin T 0.025 ng/mL (0.00-0.029) 04/05/21 01:08 Total Protein 6.7 g/dL (6.3-8.2) 04/05/21 01:08 Albumin 3.9 g/dL (3.9-5) 04/05/21 01:08 Albumin/Globulin Ratio 1.4 % 04/05/21 01:08 Triglycerides 104 mg/dL (2-149) 04/05/21 03:37 Cholesterol 145 mg/dL (50-199) 04/05/21 03:37 LDL Cholesterol Direct 63 mg/dL (50-130) 04/05/21 03:37 HDL Cholesterol 68 mg/dL (40-59) H 04/05/21 03:37 Cholesterol/HDL Ratio 2.13 % 04/05/21 03:37 Hepatitis A IgM Ab Non-reactive (NonReactive) 04/05/21 08:27 Hep Bs Antigen Non-reactive (Negative) 04/05/21 08:27 Hep B Core IgM Ab Non-reactive (NonReactive) 04/05/21 08:27 Hepatitis C Antibody Non-reactive (NonReactive) 04/05/21 08:27 Microbiology: Microbiology 04/05/21 06:11 Peripheral/Venous Blood Culture - Preliminary Culture in Progress 04/05/21 03:37 Peripheral/Venous Blood Culture - Preliminary Culture in Progress Active Medications - Current Medications Current Medications: Generic Name Dose Route Start Last Admin Trade Name Freq PRN Reason Stop Dose Admin Acetaminophen 650 mg 04/05/21 02:55 Acetaminophen 325 Mg Tab PO Q4H PRN Pain MILD(1-3)/Fever >100.5/JAMA Albumin Human 25 gm 04/05/21 07:07 Albumin Human 25% (25 Gm/100 Ml) Inj IV AICHA PRN Hypotension Albuterol 2.5 mg 04/05/21 02:55 Albuterol 2.5 Mg/3 Ml Nebu IH Q3HRT PRN Shortness Of Breath Albuterol/Ipratropium 1 ampul 04/05/21 08:00 04/05/21 09:44 Ipratropium/Albuterol Sulfate 3 Ml Ampul.Neb IH 1 ampul Q6HRT PETE Administration Budesonide 0.5 mg 04/05/21 08:00 04/05/21 09:44 Budesonide 0.5 Mg/2 Ml Nebu IH 0.5 mg Q12HRT PETE Administration Clonidine HCl 0.1 mg 04/05/21 10:00 04/05/21 09:15 Clonidine 0.1 Mg Tab PO 0.1 mg Q12HR PETE Administration Dextrose 0 ml 04/05/21 02:55 Dextrose 50% In Water (25gm) 50 Ml Syringe IV Q30MIN PRN Hypoglycemia Protocol Docusate Sodium 100 mg 04/05/21 10:00 04/05/21 09:15 Docusate Sodium 100 Mg Cap PO 100 mg BID PETE Administration Heparin Sodium (Porcine) 5,000 unit 04/05/21 06:00 04/05/21 05:37 Heparin 5,000 Unit/1 Ml Vial SUB-Q 5,000 unit Q8HR PETE Administration Hydralazine HCl 10 mg 04/05/21 04:06 04/05/21 05:36 Hydralazine 20 Mg/1 Ml Inj IV 10 mg Q6H PRN Administration htn Sodium Chloride 100 mls @ 999 mls/hr 04/05/21 07:07 Nacl 0.9% IV AICHA PRN Hypotension Insulin Human Lispro 0 unit 04/05/21 07:30 04/05/21 09:19 Insulin Lispro 100 Unit/Ml SUB-Q 3 unit ACHS PETE Administration Protocol Levofloxacin 500 mg 04/05/21 10:00 04/05/21 09:15 Levofloxacin 500 Mg Tab PO 04/13/21 10:01 500 mg Q48H PETE Administration Protocol Metoprolol Tartrate 25 mg 04/05/21 10:00 04/05/21 09:15 Metoprolol Tartrate 25 Mg Tab PO 25 mg BID PETE Administration Nicotine 14 mg 04/05/21 10:00 04/05/21 09:18 Nicotine 14 Mg/24 Hr Patch TD Not Given QDAY PETE Ondansetron HCl 4 mg 04/05/21 02:55 Ondansetron 4 Mg/2 Ml Inj IV Q6H PRN Nausea And Vomiting Oxycodone/Acetaminophen 1 tab 04/05/21 02:55 Oxycodone /Acetaminophen 5-325mg Tab PO Q6H PRN Pain, Moderate (4-6) Pantoprazole Sodium 40 mg 04/05/21 10:00 04/05/21 09:16 Pantoprazole 40 Mg Tab PO 40 mg BIDAC PETE Administration Sodium Chloride 10 ml 04/05/21 10:00 04/05/21 09:18 Sodium Chloride 0.9% 10 Ml Flush Syringe IV 10 ml BID PETE Administration Sodium Chloride 10 ml 04/05/21 02:55 Sodium Chloride 0.9% 10 Ml Flush Syringe IV PRN PRN LINE FLUSH Spironolactone 50 mg 04/05/21 10:00 04/05/21 09:16 Spironolactone 50 Mg Tab PO 50 mg QDAY PETE Administration Nutrition/Malnutrition Assess - Dietary Evaluation Nutrition/Malnutrition Findings: Nutrition Notes Start: 04/05/21 10:14 Freq: Status: Active Protocol: Document 04/05/21 10:14 (Rec: 04/05/21 10:20 [id number]) Nutrition Notes Need for Assessment generated from: MD Order,Education Initial or Follow up Assessment Current Diagnosis CKD (stage V CKD),Diabetes, Hypertension,Heart Failure Other Pertinent Diagnosis On HD Current Diet Renal, Consistent CHO, Cardiac Labs/Tests POC BG 204 Pertinent Medications Humalog Height 4 ft 9 in Weight 65.12 kg Usual Body Weight 51.25 kg Murphy Body Weight (kg) 38.63 BMI 31.0 Intake Prior to Admission Excellent Weight Status Obese Subjective/Other Information MD order for diet education and ONS. Pt denied diet education and states she sees an RD at HD. Pt says she got sick and missed HD. She reports she follows her fluid restriction. Pt ON bi-pap and unable to eat breakfast. Pt encouraged to drink ONS when off bi-pap. Burn Absent Trauma Absent GI Symptoms None Current % PO Negligible Minimum of two criteria No physical signs of malnutrition #1 Nutrition Diagnosis Inadequate oral intake Etiology CHF As Evidenced by Signs and Symptoms pt on bipap and unable to consume PO Is patient on ventilator? No Is Patient Ambulatory and/or Out of Bed No REE-([facility]-confined to bed) 1344.584 Calculation Used for Recommendations [facility] Additional Notes Protein: (>1.2g/kg AdjBW: 52kg ) >62g Fluid: 1500 ml Nutrition Intervention Change Diet Order: Continue Add Supplement/Snack (indicate name/kcal Nepro BID /protein ) Provides kCal: 850 Provides Protein (gm) 38 Goal #1 Meet at least 75% of protein and energy needs via PO and ONS intakes Anticipated Discharge Needs: Renal, Consistent CHO Follow-Up By: 04/08/21 Additional Comments FU for intakes and ONS tolerance
--- NOTE | 2021-04-05 13:38 | Electrocardiograph Report ---
[facility] Test Date: 2021-04-05 Test Time: 01:40:01 Pat Name: KVNG HAILE Department: Room: A265 1 Gender: F Quality Reviewer: SHANNON : 1965 Requested By: IMELDA RAMOS III Order Number: [id number] Reading MD: Nerissa Dos Santos Measurements Intervals [place] Rate: 95 P: 43 NC: 133 QRS: 5 QRSD: 92 T: -28 QT: 383 QTc: 482 Interpretive Statements Sinus rhythm Nonspecific repol abnormality, diffuse leads No previous ECG available for comparison Electronically Signed On 04-05-2021 13:38:13 EDT by Nerissa Dos Santos
[2021-04-06] MEDS: IPRATROPIUM/ALBUTEROL SULFATE 3 ML AMPUL.NEB IH SCH ×4 (02:27→19:32)
[2021-04-06] MEDS: HEPARIN 5,000 UNIT/1 ML VIAL SUB-Q SCH ×4 (05:33→21:55)
[2021-04-06 08:02] LABS: Basophils % (Auto) 0.3 % (0.0-1.8); Eosinophils % (Auto) 0.5 % (0.0-4.3); Hematocrit 24.3 % (30.3-42.9); Hemoglobin 8.2 gm/dl (10.1-14.3); Lymphocytes # (Auto) 1.2 K/mm3 (1.2-5.4); Lymphocytes % (Auto) 15.5 % (13.4-35.0); Mean Corpuscular HGB Conc 34 % (30-34); Mean Corpuscular Volume 91 fl (79-97); Monocytes # (Auto) 0.3 K/mm3 (0.0-0.8); Monocytes % (Auto) 4.2 % (0.0-7.3); Platelet Count 144 K/mm3 (140-440); Red Blood Count 2.67 M/mm3 (3.65-5.03); Red Cell Distribution Width 16.4 % (13.2-15.2)
[2021-04-06] MEDS: BUDESONIDE 0.5 MG/2 ML NEBU IH SCH ×2 (08:09→19:32)
--- NOTE | 2021-04-06 08:51 | Progress Note ---
Assessment and Plan Assessment and plan: -- CHF exacerbation Current Visit: Yes Status: Acute Continue antifailure medications, input and output monitoring Fluid overload, supportive care, cardiology consult if needed -- pulmonary edema Current Visit: Yes Status: Acute due to missed hemodialysis, HD per schedule Counseled the importance of adhering to the treatment plan --ESRD (end stage renal disease) on dialysis Current Visit: Yes Status: Acute Nephrology evaluated the patient received hemodialysis yesterday Hemodialysis is scheduled again today per nephrology I strongly counseled the patient to comply with medications diet and hem odialysis --Hypertension/continue antihypertensives Current Visit: Yes Status: Metoprolol 25 mg p.o. twice daily. Hydralazine 10 mg IV every 6 hours as needed. 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 We will recheck the hemoglobin in the morning --Shortness of breath Current Visit: Yes Status: Acute Multifactorial due to fluid overload, pulmonary edema, congestive heart failure Hemodialysis per schedule --DVT prophylaxis Current Visit: Yes Status: Acute Heparin 5000 units subcu every 8 hours for DVT prophylaxis and GI prophylaxis ;Protonix 40 mg p.o. daily f Patient is a full code Closely monitor the patient and adjust management as needed Plan of care reviewed with the patient and her nurse Shirt Cleaner recommendations noted and appreciated 04/05/2021; hemodialysis per schedule, monitor H&H Patient may be transferred out of [facility] if stable 04/06/2021; hemodialysis again today Advised to comply with medications diet and dialysis Possible discharge a.m. if stable History Interval history: Patient was admitted with fluid overload worsening shortness of breath due to noncompliance with hemodialysis Patient received hemodialysis yesterday, nephrology evaluated, medications optimized Possible hemodialysis again today Patient feels better , still has some shortness of breath Vital signs reviewed Hospitalist Physical - Constitutional Vitals: Temp Pulse Resp BP Pulse Ox 98.5 F 80 18 164/74 100 04/06/21 03:51 04/06/21 08:09 04/06/21 08:09 04/06/21 03:51 04/06/21 08:09 General appearance: Present: no acute distress, well-nourished - EENT Eyes: Present: PERRL, EOM intact - Neck Neck: Present: supple, normal ROM - Respiratory Respiratory effort: normal Respiratory: bilateral: diminished, rales, negative: rhonchi, wheezing - Cardiovascular Rhythm: regular Heart Sounds: Present: S1 & S2 - Extremities Extremities: no ischemia, No edema - Abdominal General gastrointestinal: soft, non-tender, non-distended, normal bowel sounds - Integumentary Integumentary: Present: clear, warm - Psychiatric Psychiatric: appropriate mood/affect, cooperative - Neurologic Neurologic: moves all extremities HEART Score - HEART Score Troponin: Troponin T 0.025 ng/mL (0.00-0.029) 04/05/21 01:08 Results - Labs CBC & Chem 7: 04/06/21 07:04 04/06/21 07:04 Labs: Laboratory Last Values WBC 8.0 K/mm3 (4.5-11.0) 04/06/21 07:04 RBC 2.67 M/mm3 (3.65-5.03) L 04/06/21 07:04 Hgb 8.2 gm/dl (10.1-14.3) L 04/06/21 07:04 Hct 24.3 % (30.3-42.9) L 04/06/21 07:04 MCV 91 fl (79-97) 04/06/21 07:04 MCH 31 pg (28-32) 04/06/21 07:04 MCHC 34 % (30-34) 04/06/21 07:04 RDW 16.4 % (13.2-15.2) H 04/06/21 07:04 Plt Count 144 K/mm3 (140-440) 04/06/21 07:04 Lymph % (Auto) 15.5 % (13.4-35.0) 04/06/21 07:04 [place] % (Auto) 4.2 % (0.0-7.3) 04/06/21 07:04 Eos % (Auto) 0.5 % (0.0-4.3) 04/06/21 07:04 Baso % (Auto) 0.3 % (0.0-1.8) 04/06/21 07:04 Lymph # (Auto) 1.2 K/mm3 (1.2-5.4) 04/06/21 07:04 [place] # (Auto) 0.3 K/mm3 (0.0-0.8) 04/06/21 07:04 Eos # (Auto) 0.0 K/mm3 (0.0-0.4) 04/06/21 07:04 Baso # (Auto) 0.0 K/mm3 (0.0-0.1) 04/06/21 07:04 Add Manual Diff Complete 04/05/21 01:08 Total Counted 100 04/05/21 01:08 Seg Neutrophils % 79.5 % (40.0-70.0) H 04/06/21 07:04 Seg Neuts % (Manual) 93.0 % (40.0-70.0) H 04/05/21 01:08 Lymphocytes % (Manual) 4.0 % (13.4-35.0) L 04/05/21 01:08 Monocytes % (Manual) 3.0 % (0.0-7.3) 04/05/21 01:08 Nucleated RBC % Not Reportable 04/05/21 01:08 Seg Neutrophils # 6.4 K/mm3 (1.8-7.7) 04/06/21 07:04 Seg Neutrophils # Man 11.0 K/mm3 (1.8-7.7) H 04/05/21 01:08 Band Neutrophils # 0.0 K/mm3 04/05/21 01:08 Lymphocytes # (Manual) 0.5 K/mm3 (1.2-5.4) L 04/05/21 01:08 Abs React Lymphs (Man) 0.0 K/mm3 04/05/21 01:08 Monocytes # (Manual) 0.4 K/mm3 (0.0-0.8) 04/05/21 01:08 Eosinophils # (Manual) 0.0 K/mm3 (0.0-0.4) 04/05/21 01:08 Basophils # (Manual) 0.0 K/mm3 (0.0-0.1) 04/05/21 01:08 Metamyelocytes # 0.0 K/mm3 04/05/21 01:08 Myelocytes # 0.0 K/mm3 04/05/21 01:08 Promyelocytes # 0.0 K/mm3 04/05/21 01:08 Blast Cells # 0.0 K/mm3 04/05/21 01:08 WBC Morphology Not Reportable 04/05/21 01:08 Hypersegmented Neuts Not Reportable 04/05/21 01:08 Hyposegmented Neuts Not Reportable 04/05/21 01:08 Hypogranular Neuts Not Reportable 04/05/21 01:08 Smudge Cells Not Reportable 04/05/21 01:08 Toxic Granulation Not Reportable 04/05/21 01:08 Toxic Vacuolation Not Reportable 04/05/21 01:08 Dohle Bodies Not Reportable 04/05/21 01:08 Pelger-Huet Anomaly Not Reportable 04/05/21 01:08 Birgit Rods Not Reportable 04/05/21 01:08 Platelet Estimate Not Reportable 04/05/21 01:08 Clumped Platelets Not Reportable 04/05/21 01:08 Plt Clumps, EDTA Not Reportable 04/05/21 01:08 Large Platelets Not Reportable 04/05/21 01:08 Giant Platelets Not Reportable 04/05/21 01:08 Platelet Satelliting Not Reportable 04/05/21 01:08 Plt Morphology Comment Not Reportable 04/05/21 01:08 RBC Morphology Not Reportable 04/05/21 01:08 Dimorphic RBCs Not Reportable 04/05/21 01:08 Polychromasia Not Reportable 04/05/21 01:08 Hypochromasia Not Reportable 04/05/21 01:08 Poikilocytosis Not Reportable 04/05/21 01:08 Anisocytosis Rare 04/05/21 01:08 Microcytosis Not Reportable 04/05/21 01:08 Macrocytosis Not Reportable 04/05/21 01:08 Spherocytes Not Reportable 04/05/21 01:08 Pappenheimer Bodies Not Reportable 04/05/21 01:08 Sickle Cells Not Reportable 04/05/21 01:08 Target Cells Not Reportable 04/05/21 01:08 Tear Drop Cells Not Reportable 04/05/21 01:08 Ovalocytes Not Reportable 04/05/21 01:08 Helmet Cells Not Reportable 04/05/21 01:08 [place] Bodies Not Reportable 04/05/21 01:08 [place] Rings Not Reportable 04/05/21 01:08 [place] Cells Not Reportable 04/05/21 01:08 Bite Cells Not Reportable 04/05/21 01:08 Crenated Cell Not Reportable 04/05/21 01:08 Elliptocytes Not Reportable 04/05/21 01:08 Acanthocytes (Spur) Not Reportable 04/05/21 01:08 Rouleaux Not Reportable 04/05/21 01:08 Hemoglobin C Crystals Not Reportable 04/05/21 01:08 Schistocytes Not Reportable 04/05/21 01:08 Malaria parasites Not Reportable 04/05/21 01:08 [place] Bodies Not Reportable 04/05/21 01:08 Hem Pathologist Commnt No 04/05/21 01:08 Sodium 141 mmol/L (137-145) 04/06/21 07:04 Potassium 3.7 mmol/L (3.6-5.0) D 04/06/21 07:04 Chloride 100.6 mmol/L (98-107) 04/06/21 07:04 Carbon Dioxide 28 mmol/L (22-30) 04/06/21 07:04 Anion Gap 16 mmol/L 04/06/21 07:04 BUN 22 mg/dL (7-17) H 04/06/21 07:04 Creatinine 4.1 mg/dL (0.6-1.2) H 04/06/21 07:04 Estimated GFR 14 ml/min 04/06/21 07:04 BUN/Creatinine Ratio 5 % 04/06/21 07:04 Glucose 149 mg/dL (65-100) H 04/06/21 07:04 POC Glucose 133 mg/dL (70-105) H 04/05/21 21:01 Hemoglobin A1c 5.0 % (4-6) 04/05/21 03:37 Calcium 9.0 mg/dL (8.4-10.2) 04/06/21 07:04 Total Bilirubin 0.40 mg/dL (0.1-1.2) 04/05/21 01:08 AST 55 units/L (5-40) H 04/05/21 01:08 ALT 51 units/L (7-56) 04/05/21 01:08 Alkaline Phosphatase 93 units/L (35-129) 04/05/21 01:08 Troponin T 0.025 ng/mL (0.00-0.029) 04/05/21 01:08 Total Protein 6.7 g/dL (6.3-8.2) 04/05/21 01:08 Albumin 3.9 g/dL (3.9-5) 04/05/21 01:08 Albumin/Globulin Ratio 1.4 % 04/05/21 01:08 Triglycerides 104 mg/dL (2-149) 04/05/21 03:37 Cholesterol 145 mg/dL (50-199) 04/05/21 03:37 LDL Cholesterol Direct 63 mg/dL (50-130) 04/05/21 03:37 HDL Cholesterol 68 mg/dL (40-59) H 04/05/21 03:37 Cholesterol/HDL Ratio 2.13 % 04/05/21 03:37 Hepatitis A IgM Ab Non-reactive (NonReactive) 04/05/21 08:27 Hep Bs Antigen Non-reactive (Negative) 04/05/21 08:27 Hep B Core IgM Ab Non-reactive (NonReactive) 04/05/21 08:27 Hepatitis C Antibody Non-reactive (NonReactive) 04/05/21 08:27 Microbiology: Microbiology 04/05/21 06:11 Peripheral/Venous Blood Culture - Preliminary NO GROWTH AFTER 24 HOURS 04/05/21 03:37 Peripheral/Venous Blood Culture - Preliminary NO GROWTH AFTER 24 HOURS Active Medications - Current Medications Current Medications: Generic Name Dose Route Start Last Admin Trade Name Freq PRN Reason Stop Dose Admin Acetaminophen 650 mg 04/05/21 02:55 Acetaminophen 325 Mg Tab PO Q4H PRN Pain MILD(1-3)/Fever >100.5/JAMA Albumin Human 25 gm 04/05/21 07:07 Albumin Human 25% (25 Gm/100 Ml) Inj IV AICHA PRN Hypotension Albuterol 2.5 mg 04/05/21 02:55 Albuterol 2.5 Mg/3 Ml Nebu IH Q3HRT PRN Shortness Of Breath Albuterol/Ipratropium 1 ampul 04/05/21 08:00 04/06/21 08:09 Ipratropium/Albuterol Sulfate 3 Ml Ampul.Neb IH 1 ampul Q6HRT PETE Administration Budesonide 0.5 mg 04/05/21 08:00 04/06/21 08:09 Budesonide 0.5 Mg/2 Ml Nebu IH 0.5 mg Q12HRT PETE Administration Clonidine HCl 0.1 mg 04/05/21 10:00 04/05/21 23:03 Clonidine 0.1 Mg Tab PO 0.1 mg Q12HR PETE Administration Dextrose 0 ml 04/05/21 02:55 Dextrose 50% In Water (25gm) 50 Ml Syringe IV Q30MIN PRN Hypoglycemia Protocol Docusate Sodium 100 mg 04/05/21 10:00 04/05/21 23:02 Docusate Sodium 100 Mg Cap PO 100 mg BID PETE Administration Heparin Sodium (Porcine) 5,000 unit 04/05/21 06:00 04/06/21 05:33 Heparin 5,000 Unit/1 Ml Vial SUB-Q 5,000 unit Q8HR PETE Administration Hydralazine HCl 10 mg 04/05/21 04:06 04/05/21 05:36 Hydralazine 20 Mg/1 Ml Inj IV 10 mg Q6H PRN Administration htn Sodium Chloride 100 mls @ 999 mls/hr 04/05/21 07:07 Nacl 0.9% IV AICHA PRN Hypotension Insulin Human Lispro 0 unit 04/05/21 07:30 04/05/21 22:16 Insulin Lispro 100 Unit/Ml SUB-Q Not Given ACHS [facility] Protocol Levofloxacin 500 mg 04/05/21 10:00 04/05/21 09:15 Levofloxacin 500 Mg Tab PO 04/13/21 10:01 500 mg Q48H PETE Administration Protocol Metoprolol Tartrate 25 mg 04/05/21 10:00 04/05/21 23:03 Metoprolol Tartrate 25 Mg Tab PO 25 mg BID PETE Administration Nicotine 14 mg 04/05/21 10:00 04/05/21 09:18 Nicotine 14 Mg/24 Hr Patch TD Not Given QDAY [facility] Ondansetron HCl 4 mg 04/05/21 02:55 Ondansetron 4 Mg/2 Ml Inj IV Q6H PRN Nausea And Vomiting Oxycodone/Acetaminophen 1 tab 04/05/21 02:55 Oxycodone /Acetaminophen 5-325mg Tab PO Q6H PRN Pain, Moderate (4-6) Pantoprazole Sodium 40 mg 04/05/21 10:00 04/05/21 09:16 Pantoprazole 40 Mg Tab PO 40 mg BIDAC PETE Administration Sodium Chloride 10 ml 04/05/21 10:00 04/05/21 23:04 Sodium Chloride 0.9% 10 Ml Flush Syringe IV 10 ml BID PETE Administration Sodium Chloride 10 ml 04/05/21 02:55 Sodium Chloride 0.9% 10 Ml Flush Syringe IV PRN PRN LINE FLUSH Spironolactone 50 mg 04/05/21 10:00 04/05/21 09:16 Spironolactone 50 Mg Tab PO 50 mg QDAY PETE Administration Nutrition/Malnutrition Assess - Dietary Evaluation Nutrition/Malnutrition Findings: Nutrition Notes Start: 04/05/21 10:14 Freq: Status: Active Protocol: Document 04/05/21 10:14 (Rec: 04/05/21 10:20 [id number]) Nutrition Notes Need for Assessment generated from: MD Order,Education Initial or Follow up Assessment Current Diagnosis CKD (stage V CKD),Diabetes, Hypertension,Heart Failure Other Pertinent Diagnosis On HD Current Diet Renal, Consistent CHO, Cardiac Labs/Tests POC BG 204 Pertinent Medications Humalog Height 4 ft 9 in Weight 65.12 kg Usual Body Weight 51.25 kg [place] Body Weight (kg) 38.63 BMI 31.0 Intake Prior to Admission Excellent Weight Status Obese Subjective/Other Information MD order for diet education and ONS. Pt denied diet education and states she sees an RD at HD. Pt says she got sick and missed HD. She reports she follows her fluid restriction. Pt ON bi-pap and unable to eat breakfast. Pt encouraged to drink ONS when off bi-pap. Burn Absent Trauma Absent GI Symptoms None Current % PO Negligible Minimum of two criteria No physical signs of malnutrition #1 Nutrition Diagnosis Inadequate oral intake Etiology CHF As Evidenced by Signs and Symptoms pt on bipap and unable to consume PO Is patient on ventilator? No Is Patient Ambulatory and/or Out of Bed No REE-([facility]-confined to bed) 1348.584 Calculation Used for Recommendations [facility] Additional Notes Protein: (>1.2g/kg AdjBW: 52kg ) >62g Fluid: 1500 ml Nutrition Intervention Change Diet Order: Continue Add Supplement/Snack (indicate name/kcal Nepro BID /protein ) Provides kCal: 850 Provides Protein (gm) 38 Goal #1 Meet at least 75% of protein and energy needs via PO and ONS intakes Anticipated Discharge Needs: Renal, Consistent CHO Follow-Up By: 04/08/21 Additional Comments FU for intakes and ONS tolerance
[2021-04-06] MEDS: INSULIN LISPRO 100 UNIT/ML SUB-Q SCH ×4 (09:23→21:58)
[2021-04-06] MEDS: PANTOPRAZOLE 40 MG TAB PO SCH ×3 (10:03→19:36)
[2021-04-06] MEDS: SPIRONOLACTONE 50 MG TAB PO SCH (10:04)
[2021-04-06] MEDS: cloNIDine 0.1 MG TAB PO SCH ×3 (10:05→21:48)
[2021-04-06] MEDS: METOPROLOL TARTRATE 25 MG TAB PO SCH ×3 (10:05→21:55)
[2021-04-06] MEDS: DOCUSATE SODIUM 100 MG CAP PO SCH ×3 (10:05→21:54)
[2021-04-06] MEDS: NICOTINE 14 MG/24 HR PATCH TD SCH (10:06)
[2021-04-06] MEDS ORDERED: SODIUM CHLORIDE 0.9% 100 ML IV PRN (10:49)
--- NOTE | 2021-04-06 10:49 | Progress Note ---
Assessment and Plan Impression: * ESRD * shortness of breath * volume overload * HTN * Type 2 DM * Anemia in ESRD Plan: * HD today and TTHSAT and prn for volume control * uf as tolerated with HD * daily lytes * avoid nephrotoxins * epogen with hd * bp control, amend meds as needed * ok to dc after hd today Subjective Date of service: 04/06/21 Interval history: resting in bed today Objective - Exam Narrative Exam: General appearance: Present: no acute distress, well-nourished - EENT Eyes: Present: PERRL ENT: hearing intact, clear oral mucosa - Neck Neck: Present: supple, normal ROM - Respiratory Respiratory effort: normal Respiratory: bilateral: rales - Cardiovascular Heart Sounds: Present: S1 & S2. Absent: rub, click - Extremities Extremities: pulses symmetrical, No edema Extremity abnormal: edema Peripheral Pulses: within normal limits - Abdominal General gastrointestinal: Present: soft, non-tender, non-distended, normal bowel sounds Female genitourinary: Present: normal - Integumentary Integumentary: Present: clear, warm, dry - Musculoskeletal Musculoskeletal: gait normal, strength equal bilaterally - Psychiatric Psychiatric: appropriate mood/affect, intact judgment & insight - Neurologic Neurologic: CNII-XII intact, moves all extremities - Vital Signs Vital signs: Vital Signs - 12hr 04/05/21 04/05/21 04/06/21 23:03 23:04 00:00 Temperature Pulse Rate 92 H 90 122 H Pulse Rate [ Anterior Bilateral Throughout] Pulse Rate [ Posterior Bilateral Throughout] Respiratory Rate Respiratory Rate [Anterior Bilateral Throughout] Respiratory Rate [Posterior Bilateral Throughout] Blood Pressure 155/77 155/77 O2 Sat by Pulse 100 Oximetry 04/06/21 04/06/21 04/06/21 02:30 03:51 08:09 Temperature 98.5 F Pulse Rate 80 Pulse Rate [ 93 H 80 Anterior Bilateral Throughout] Pulse Rate [ 94 H Posterior Bilateral Throughout] Respiratory 18 Rate Respiratory 18 18 Rate [Anterior Bilateral Throughout] Respiratory 18 Rate [Posterior Bilateral Throughout] Blood Pressure 164/74 O2 Sat by Pulse 97 100 Oximetry 04/06/21 04/06/21 10:04 10:05 Temperature Pulse Rate 92 H 92 H Pulse Rate [ Anterior Bilateral Throughout] Pulse Rate [ Posterior Bilateral Throughout] Respiratory Rate Respiratory Rate [Anterior Bilateral Throughout] Respiratory Rate [Posterior Bilateral Throughout] Blood Pressure 149/60 149/60 O2 Sat by Pulse Oximetry - Lab 04/06/21 07:04 04/06/21 07:04 Most recent lab results Calcium 9.0 mg/dL (8.4-10.2) 04/06/21 07:04 Medications & Allergies - Medications Allergies/Adverse Reactions: Allergies No Known Allergies Allergy (Verified 04/05/21 04:04) Home Medications: Home Medications Medication Instructions Recorded Confirmed Last Taken Type Folic Acid/Vit B Complex and C 800 mcg PO DAILY 04/05/21 04/05/21 1 Day Ago History [Dialyvite 800 Chewable Wafer] ~04/04/21 800 mcg Isosorbide Mononitrate ER 60 mg PO DAILY 04/05/21 04/05/21 1 Day Ago History ~04/04/21 Nifedipine ER 60 mg PO DAILY 04/05/21 04/05/21 1 Day Ago History ~04/04/21 Vitamin D2 1.25 mg PO 1XW 04/05/21 04/05/21 1 Day Ago History ~04/04/21 glipiZIDE XL [Glucotrol Xl] 2.5 mg PO DAILY 04/05/21 04/05/21 1 Day Ago History ~04/04/21 Active Medications: Generic Name Dose Route Start Last Admin Trade Name Freq PRN Reason Stop Dose Admin Acetaminophen 650 mg 04/05/21 02:55 Acetaminophen 325 Mg Tab PO Q4H PRN Pain MILD(1-3)/Fever >100.5/JAMA Albumin Human 25 gm 04/05/21 07:07 Albumin Human 25% (25 Gm/100 Ml) Inj IV AICHA PRN Hypotension Albuterol 2.5 mg 04/05/21 02:55 Albuterol 2.5 Mg/3 Ml Nebu IH Q3HRT PRN Shortness Of Breath Albuterol/Ipratropium 1 ampul 04/05/21 08:00 04/06/21 08:09 Ipratropium/Albuterol Sulfate 3 Ml Ampul.Neb IH 1 ampul Q6HRT PETE Administration Budesonide 0.5 mg 04/05/21 08:00 04/06/21 08:09 Budesonide 0.5 Mg/2 Ml Nebu IH 0.5 mg Q12HRT PETE Administration Clonidine HCl 0.1 mg 04/05/21 10:00 04/06/21 10:05 Clonidine 0.1 Mg Tab PO 0.1 mg Q12HR PETE Administration Dextrose 0 ml 04/05/21 02:55 Dextrose 50% In Water (25gm) 50 Ml Syringe IV Q30MIN PRN Hypoglycemia Protocol Docusate Sodium 100 mg 04/05/21 10:00 04/06/21 10:05 Docusate Sodium 100 Mg Cap PO 100 mg BID PETE Administration Heparin Sodium (Porcine) 5,000 unit 04/05/21 06:00 04/06/21 05:33 Heparin 5,000 Unit/1 Ml Vial SUB-Q 5,000 unit Q8HR PETE Administration Hydralazine HCl 10 mg 04/05/21 04:06 04/05/21 05:36 Hydralazine 20 Mg/1 Ml Inj IV 10 mg Q6H PRN Administration htn Sodium Chloride 100 mls @ 999 mls/hr 04/05/21 07:07 Nacl 0.9% IV AICHA PRN Hypotension Insulin Human Lispro 0 unit 04/05/21 07:30 04/06/21 09:23 Insulin Lispro 100 Unit/Ml SUB-Q Not Given ACHS [facility] Protocol Levofloxacin 500 mg 04/05/21 10:00 04/05/21 09:15 Levofloxacin 500 Mg Tab PO 04/13/21 10:01 500 mg Q48H PETE Administration Protocol Metoprolol Tartrate 25 mg 04/05/21 10:00 04/06/21 10:05 Metoprolol Tartrate 25 Mg Tab PO 25 mg BID PETE Administration Nicotine 14 mg 04/05/21 10:00 04/06/21 10:06 Nicotine 14 Mg/24 Hr Patch TD Not Given QDAY PETE Ondansetron HCl 4 mg 04/05/21 02:55 Ondansetron 4 Mg/2 Ml Inj IV Q6H PRN Nausea And Vomiting Oxycodone/Acetaminophen 1 tab 04/05/21 02:55 Oxycodone /Acetaminophen 5-325mg Tab PO Q6H PRN Pain, Moderate (4-6) Pantoprazole Sodium 40 mg 04/05/21 10:00 04/06/21 10:03 Pantoprazole 40 Mg Tab PO 40 mg BIDAC PETE Administration Sodium Chloride 10 ml 04/05/21 10:00 04/05/21 23:04 Sodium Chloride 0.9% 10 Ml Flush Syringe IV 10 ml BID PETE Administration Sodium Chloride 10 ml 04/05/21 02:55 Sodium Chloride 0.9% 10 Ml Flush Syringe IV PRN PRN LINE FLUSH Spironolactone 50 mg 04/05/21 10:00 04/06/21 10:04 Spironolactone 50 Mg Tab PO 50 mg QDAY PETE Administration
[2021-04-06] MEDS ORDERED: EPOETIN ALFA-EPBX 10,000 UNIT/1 ML VIAL IV PRN (10:50)
[2021-04-07] MEDS: HEPARIN 5,000 UNIT/1 ML VIAL SUB-Q SCH (05:13)
[2021-04-07] MEDS: INSULIN LISPRO 100 UNIT/ML SUB-Q SCH ×2 (07:30→11:30)
[2021-04-07] MEDS ORDERED: IPRATROPIUM/ALBUTEROL SULFATE 3 ML AMPUL.NEB IH SCH (08:00)
[2021-04-07] MEDS: BUDESONIDE 0.5 MG/2 ML NEBU IH SCH (08:09)
[2021-04-07] MEDS: PANTOPRAZOLE 40 MG TAB PO SCH (08:13)
[2021-04-07] MEDS: NICOTINE 14 MG/24 HR PATCH TD SCH (09:30)
[2021-04-07 09:31] VITALS: BP 165/68
[2021-04-07] MEDS: DOCUSATE SODIUM 100 MG CAP PO SCH (09:31)
[2021-04-07] MEDS: METOPROLOL TARTRATE 25 MG TAB PO SCH (09:31)
[2021-04-07] MEDS: SPIRONOLACTONE 50 MG TAB PO SCH (09:31)
[2021-04-07] MEDS: levoFLOXacin 500 MG TAB PO SCH (09:31)
[2021-04-07] MEDS: cloNIDine 0.1 MG TAB PO SCH (09:31)
--- NOTE | 2021-04-07 10:59 | Discharge Summary ---
Providers - Providers Date of Admission: 04/05/21 02:15 Date of discharge: 04/07/21 Attending physician: VERA SARMIENTO 04/05/21 02:54 Consult to Physician [CONS] Routine Comment: Consulting Provider: JESSICA DONNELLY Physician Instructions: Reason For Exam: HD mgmt 04/05/21 03:46 Consult to Dietitian/Nutrition [CONS] Routine Physician Instructions: Reason For Exam: Reason for Consult: Diet education 04/05/21 04:11 Consult to Physician [CONS] Routine Comment: Consulting Provider: BEVERLY JEFFERS Physician Instructions: Reason For Exam: esrd Primary care physician: COMMUNICATIONS WRITER Hospitalization Reason for admission: Worsening shortness of breath/fluid overload/ESRD on HD Condition: Stable Pertinent studies: Chest x-ray Procedures: HD per schedule Hospital course: 56-year-old obese female patient with significant past medical history of congestive heart failure, end-stage renal disease was admitted through emergency room with worsening shortness of breath of 1 day duration and fluid overload. Patient claims compliance with her dialysis schedule as well as medications Patient was admitted home medications resumed subsequently evaluated by nephrology and patient underwent hemodialysis Electrolyte imbalances were corrected, patient had [id number] dialysis Symptoms significantly improved, today patient is comfortable no new complaints vital signs stable Physical examination prior to discharge did not have any new changes Cleared by nephrology for discharge and follow-up with them per schedule Stable at discharge Discharge diagnosis; --Mild systolic CHF -unspecified exacerbation Due to fluid overload due to ESRD EF 45 to 50% , hemodialysis per schedule, supportive care -- pulmonary edema due to missed hemodialysis, HD per schedule Counseled the importance of adhering to the treatment plan --ESRD (end stage renal disease) on dialysis Nephrology evaluated the patient received hemodialysis yesterday Hemodialysis is scheduled again today per nephrology --Hypertension/continue antihypertensives Metoprolol 25 mg p.o. twice daily. Hydralazine 10 mg IV every 6 hours as needed. 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 We will recheck the hemoglobin in the morning --Shortness of breath Current Visit: Yes Status: Acute Multifactorial due to fluid overload, pulmonary edema, congestive heart failure. Hemodialysis per schedule --Ongoing tobacco use; Current Visit: Yes Status: Acute Smoking cessation counseling Advised nicotine patch as needed --Obesity BMI 31.5 Partly due to fluid overload, patient may need weight reduction when medically stable --DVT prophylaxis Current Visit: Yes Status: Acute Heparin 5000 units subcu every 8 hours Stable at discharge Disposition: DC-01 TO HOME OR SELFCARE Final Discharge Diagnosis (Prints w/discharge instructions): ESRD on hemodialysis. Hypertension. Type 2 diabetes mellitus. Anemia of chronic disease. Shortness of breath. CHF unspecified. Obesity BMI 31.5. Ongoing tobacco use Time spent for discharge: 35 min Core Measure Documentation - Palliative Care Palliative Care/ Comfort Measures: Not Applicable - Core Measures Any of the following diagnoses?: none Exam - Constitutional Vitals: Temp Pulse Resp BP Pulse Ox 97.6 F 84 16 165/68 95 04/07/21 09:29 04/07/21 09:31 04/07/21 09:29 04/07/21 09:31 04/07/21 09:29 General appearance: Present: no acute distress, well-nourished - EENT Eyes: Present: PERRL, EOM intact - Neck Neck: Present: supple, normal ROM - Respiratory Respiratory effort: normal Respiratory: bilateral: diminished, rales, negative: rhonchi, wheezing - Cardiovascular Rhythm: regular Heart Sounds: Present: S1 & S2 - Extremities Extremities: no ischemia, No edema - Abdominal General gastrointestinal: Present: soft, non-tender, non-distended, normal bowel sounds - Integumentary Integumentary: Present: clear, warm - Musculoskeletal Musculoskeletal: strength equal bilaterally - Psychiatric Psychiatric: appropriate mood/affect, cooperative - Neurologic Neurologic: moves all extremities Plan Activity: advance as tolerated, fall precautions Diet: diabetic, renal Special Instructions: smoking cessation Additional Instructions: Follow renal/dialysis per schedule. Strongly advised to comply with medications diet and follow-up visits. If you have worsening symptoms contact MD or go to the nearest emergency room as needed. Advised smoking cessation, nicotine patch as needed Follow up with: PRIMARY CARE, [Primary Care Provider] - 7 Days BRANT JOHNSTON MD [Staff Physician] - 7 Days Prescriptions: Spironolactone [Aldactone] 50 mg PO QDAY #30 tablet cloNIDine [Catapres] 0.1 mg PO Q12HR #60 tablet Nicotine [Habitrol] 14 mg TD QDAY #30 patch Metoprolol [Lopressor TAB] 25 mg PO BID #60 tablet Pantoprazole [Protonix TAB] 40 mg PO BIDAC #30 tablet
--- NOTE | 2021-04-07 11:58 | Progress Note ---
Assessment and Plan Impression: * ESRD * shortness of breath * volume overload * HTN * Type 2 DM * Anemia in ESRD Plan: * HD today and TTHSAT and prn for volume control * uf as tolerated with HD * daily lytes * avoid nephrotoxins * epogen with hd * bp control, amend meds as needed * ok to dc home Subjective Date of service: 04/07/21 Principal diagnosis: esrd Interval history: resting in bed today Objective - Exam Narrative Exam: General appearance: Present: no acute distress, well-nourished - EENT Eyes: Present: PERRL ENT: hearing intact, clear oral mucosa - Neck Neck: Present: supple, normal ROM - Respiratory Respiratory effort: normal Respiratory: bilateral: rales - Cardiovascular Heart Sounds: Present: S1 & S2. Absent: rub, click - Extremities Extremities: pulses symmetrical, No edema Extremity abnormal: edema Peripheral Pulses: within normal limits - Abdominal General gastrointestinal: Present: soft, non-tender, non-distended, normal bowel sounds Female genitourinary: Present: normal - Integumentary Integumentary: Present: clear, warm, dry - Musculoskeletal Musculoskeletal: gait normal, strength equal bilaterally - Psychiatric Psychiatric: appropriate mood/affect, intact judgment & insight - Neurologic Neurologic: CNII-XII intact, moves all extremities - Vital Signs Vital signs: Vital Signs - 12hr 04/07/21 04/07/21 04/07/21 00:00 02:21 04:00 Temperature Pulse Rate 80 80 Pulse Rate [ Anterior Bilateral Throughout] Respiratory Rate Respiratory Rate [Anterior Bilateral Throughout] Blood Pressure Blood Pressure [Right] O2 Sat by Pulse 94 Oximetry 04/07/21 04/07/21 04/07/21 06:32 08:09 09:29 Temperature 98.3 F 97.6 F Pulse Rate 82 84 Pulse Rate [ 86 Anterior Bilateral Throughout] Respiratory 18 16 Rate Respiratory 18 Rate [Anterior Bilateral Throughout] Blood Pressure 173/64 Blood Pressure 165/68 [Right] O2 Sat by Pulse 93 95 95 Oximetry 04/07/21 09:31 Temperature Pulse Rate 84 Pulse Rate [ Anterior Bilateral Throughout] Respiratory Rate Respiratory Rate [Anterior Bilateral Throughout] Blood Pressure 165/68 Blood Pressure [Right] O2 Sat by Pulse Oximetry - Lab 04/06/21 07:04 04/06/21 07:04 Most recent lab results Calcium 9.0 mg/dL (8.4-10.2) 04/06/21 07:04 Medications & Allergies - Medications Allergies/Adverse Reactions: Allergies No Known Allergies Allergy (Verified 04/05/21 04:04) Home Medications: Home Medications Medication Instructions Recorded Confirmed Last Taken Type Folic Acid/Vit B Complex and C 800 mcg PO DAILY 04/05/21 04/05/21 1 Day Ago History [Dialyvite 800 Chewable Wafer] ~04/04/21 800 mcg Isosorbide Mononitrate ER 60 mg PO DAILY 04/05/21 04/05/21 1 Day Ago History ~04/04/21 Nifedipine ER 60 mg PO DAILY 04/05/21 04/05/21 1 Day Ago History ~04/04/21 Vitamin D2 1.25 mg PO 1XW 04/05/21 04/05/21 1 Day Ago History ~04/04/21 glipiZIDE XL [Glucotrol Xl] 2.5 mg PO DAILY 04/05/21 04/05/21 1 Day Ago History ~04/04/21 Active Medications: Generic Name Dose Route Start Last Admin Trade Name Freq PRN Reason Stop Dose Admin Acetaminophen 650 mg 04/05/21 02:55 Acetaminophen 325 Mg Tab PO Q4H PRN Pain MILD(1-3)/Fever >100.5/JAMA Albumin Human 25 gm 04/05/21 07:07 Albumin Human 25% (25 Gm/100 Ml) Inj IV AICHA PRN Hypotension Albuterol 2.5 mg 04/05/21 02:55 Albuterol 2.5 Mg/3 Ml Nebu IH Q3HRT PRN Shortness Of Breath Budesonide 0.5 mg 04/05/21 08:00 04/07/21 08:09 Budesonide 0.5 Mg/2 Ml Nebu IH 0.5 mg Q12HRT PETE Administration Clonidine HCl 0.1 mg 04/05/21 10:00 04/07/21 09:31 Clonidine 0.1 Mg Tab PO 0.1 mg Q12HR PETE Administration Dextrose 0 ml 04/05/21 02:55 Dextrose 50% In Water (25gm) 50 Ml Syringe IV Q30MIN PRN Hypoglycemia Protocol Docusate Sodium 100 mg 04/05/21 10:00 04/07/21 09:31 Docusate Sodium 100 Mg Cap PO 100 mg BID PETE Administration Heparin Sodium (Porcine) 5,000 unit 04/05/21 06:00 04/07/21 05:13 Heparin 5,000 Unit/1 Ml Vial SUB-Q 5,000 unit Q8HR PETE Administration Hydralazine HCl 10 mg 04/05/21 04:06 04/05/21 05:36 Hydralazine 20 Mg/1 Ml Inj IV 10 mg Q6H PRN Administration htn Sodium Chloride 100 mls @ 999 mls/hr 04/06/21 10:49 Nacl 0.9% IV AICHA PRN Hypotension Insulin Human Lispro 0 unit 04/05/21 07:30 04/07/21 07:30 Insulin Lispro 100 Unit/Ml SUB-Q Not Given ACHS PETE Protocol Levofloxacin 500 mg 04/05/21 10:00 04/07/21 09:31 Levofloxacin 500 Mg Tab PO 04/13/21 10:01 500 mg Q48H PETE Administration Protocol Metoprolol Tartrate 25 mg 04/05/21 10:00 04/07/21 09:31 Metoprolol Tartrate 25 Mg Tab PO 25 mg BID PETE Administration Nicotine 14 mg 04/05/21 10:00 04/07/21 09:30 Nicotine 14 Mg/24 Hr Patch TD 14 mg QDAY PETE Administration Ondansetron HCl 4 mg 04/05/21 02:55 Ondansetron 4 Mg/2 Ml Inj IV Q6H PRN Nausea And Vomiting Oxycodone/Acetaminophen 1 tab 04/05/21 02:55 04/06/21 20:41 Oxycodone /Acetaminophen 5-325mg Tab PO 1 tab Q6H PRN Administration Pain, Moderate (4-6) Pantoprazole Sodium 40 mg 04/05/21 10:00 04/07/21 08:13 Pantoprazole 40 Mg Tab PO 40 mg BIDAC PETE Administration Sodium Chloride 10 ml 04/05/21 10:00 04/07/21 09:32 Sodium Chloride 0.9% 10 Ml Flush Syringe IV 10 ml BID PETE Administration Sodium Chloride 10 ml 04/05/21 02:55 Sodium Chloride 0.9% 10 Ml Flush Syringe IV PRN PRN LINE FLUSH Spironolactone 50 mg 04/05/21 10:00 04/07/21 09:31 Spironolactone 50 Mg Tab PO 50 mg QDAY PETE Administration
== END 2021-04-07 14:15 | disposition home or self-care (01) | DRG 291 ==
LOC: ED 23:46 → IMCU 04-05 02:15 → 3A 04-05 21:58
PROVIDERS: ADMIT Hospitalist; ATTEND Internal Medicine
PROC: 5A09357 Assistance with Respiratory Ventilation, Less than 24 Consecutive Hours, Continuous Positive Airway Pressure (ICD-10-PCS; principal; 2021-04-05)
PROC: 5A1D70Z Performance of Urinary Filtration, Intermittent, Less than 6 Hours Per Day (ICD-10-PCS; 2021-04-05)
PROC: 5A1D70Z Performance of Urinary Filtration, Intermittent, Less than 6 Hours Per Day (ICD-10-PCS; 2021-04-06)
DX: I13.2 Hypertensive heart and chronic kidney disease with heart failure and with stage 5 chronic kidney disease, or end stage renal disease (principal); N18.6 End stage renal disease; J81.0 Acute pulmonary edema; J96.01 Acute respiratory failure with hypoxia; I50.23 Acute on chronic systolic (congestive) heart failure; E87.70 Fluid overload, unspecified; E11.22 Type 2 diabetes mellitus with diabetic chronic kidney disease; D63.1 Anemia in chronic kidney disease; E66.9 Obesity, unspecified; F17.200 Nicotine dependence, unspecified, uncomplicated; Z99.2 Dependence on renal dialysis; Z79.899 Other long term (current) drug therapy; Z68.31 Body mass index [BMI] 31.0-31.9, adult; Z71.6 Tobacco abuse counseling
CPT/HCPCS: 36415; 71045; 80048; 80053; 80061; 80074; 82962; 83036; 84484; 85007; 85025; 87040; 93005; 93306; 94640; G0378; J0360; J0885; J1644; J1815

== ENCOUNTER 2022-03-03 08:51 | Observation (INO) | payer OTHER, MEDICARE ==
[2022-03-03] MEDS ORDERED: DEXTROSE 50% IN WATER (25GM) 50 ML SYRINGE IV ONE ×2 (08:55→11:16)
[2022-03-03] MEDS ORDERED: DEXTROSE 10% *Hypoglycemia IV PRN (09:09)
--- NOTE | 2022-03-03 09:11 | Emergency Department Report ---
ED General Adult HPI - General Chief complaint: Hypoglycemia Stated complaint: LOW BLOOD SUGAR Time Seen by Provider: 03/03/22 09:01 Source: patient, EMS ( EMS documentation not available at time of chart dictation ), RN notes reviewed, old records reviewed Mode of arrival: Stretcher Limitations: No Limitations - History of Present Illness Initial comments: Nephrology: Dr. Prudencio Hoskins Past medical history: Diabetes, on Glucotrol, congestive heart failure, pulmonary edema, end-stage renal disease on hemodialysis Thursday, Thursday, Thursday, hypertension This is a pleasant and cooperative 57-year-old female who is due for hemodialysis today, who presents to the ER today with a complaint of painless hypoglycemia. She reports no dietary indiscretions. She reports compliance with her medications. She reportedly had a glucose of 17, which was corrected with IV and oral glucose prior to my personal evaluation. The patient reports that she feels like she is back to her baseline. She does have some shortness of breath, and feels like she is up on her water weight. She reports that she is due for hemodialysis. She did take her sulfonylurea last night as prescribed. -: Sudden Severity scale (0 -10): 0 Consistency: now resolved Improves with: eating - Related Data Home Medications Medication Instructions Recorded Confirmed Last Taken Folic Acid/Vit B Complex and C 800 mcg PO DAILY 04/05/21 04/05/21 1 Day Ago [Dialyvite 800 Chewable Wafer] ~04/04/21 800 mcg Isosorbide Mononitrate ER 60 mg PO DAILY 04/05/21 04/05/21 1 Day Ago ~04/04/21 Nifedipine ER 60 mg PO DAILY 04/05/21 04/05/21 1 Day Ago ~04/04/21 Vitamin D2 1.25 mg PO 1XW 04/05/21 04/05/21 1 Day Ago ~04/04/21 glipiZIDE XL [Glucotrol Xl] 2.5 mg PO DAILY 04/05/21 04/05/21 1 Day Ago ~04/04/21 Previous Rx's Medication Instructions Recorded Last Taken Type Metoprolol [Lopressor TAB] 25 mg PO BID #60 tablet 04/07/21 Unknown Rx Nicotine [Habitrol] 14 mg TD QDAY #30 patch 04/07/21 Unknown Rx Pantoprazole [Protonix TAB] 40 mg PO BIDAC #30 tablet 04/07/21 Unknown Rx Spironolactone [Aldactone] 50 mg PO QDAY #30 tablet 04/07/21 Unknown Rx cloNIDine [Catapres] 0.1 mg PO Q12HR #60 tablet 04/07/21 Unknown Rx Allergies Allergy/AdvReac Type Severity Reaction Status Date / Time No Known Allergies Allergy Verified 03/03/22 08:57 ED Review of Systems ROS: Stated complaint: LOW BLOOD SUGAR Other details as noted in HPI Constitutional: malaise. denies: fever Eyes: denies: eye discharge ENT: congestion Respiratory: shortness of breath Cardiovascular: dyspnea on exertion, edema. denies: chest pain Gastrointestinal: denies: abdominal pain, hematemesis, melena, hematochezia Genitourinary: denies: dysuria Neurological: weakness Hematological/Lymphatic: denies: easy bleeding ED Past Medical Hx - Past Medical History Hx Hypertension: Yes Hx Congestive Heart Failure: Yes Hx Diabetes: Yes Hx Renal Disease: Yes Additional medical history: anemia - Surgical History Additional Surgical History: - Social History Smoking Status: Current Every Day Smoker (occasional) Substance Use Type: None - Medications Home Medications: Home Medications Medication Instructions Recorded Confirmed Last Taken Type Folic Acid/Vit B Complex and C 800 mcg PO DAILY 04/05/21 04/05/21 1 Day Ago History [Dialyvite 800 Chewable Wafer] ~04/04/21 800 mcg Isosorbide Mononitrate ER 60 mg PO DAILY 04/05/21 04/05/21 1 Day Ago History ~04/04/21 Nifedipine ER 60 mg PO DAILY 04/05/21 04/05/21 1 Day Ago History ~04/04/21 Vitamin D2 1.25 mg PO 1XW 04/05/21 04/05/21 1 Day Ago History ~04/04/21 glipiZIDE XL [Glucotrol Xl] 2.5 mg PO DAILY 04/05/21 04/05/21 1 Day Ago History ~04/04/21 Metoprolol [Lopressor TAB] 25 mg PO BID #60 tablet 04/07/21 Unknown Rx Nicotine [Habitrol] 14 mg TD QDAY #30 patch 04/07/21 Unknown Rx Pantoprazole [Protonix TAB] 40 mg PO BIDAC #30 tablet 04/07/21 Unknown Rx Spironolactone [Aldactone] 50 mg PO QDAY #30 tablet 04/07/21 Unknown Rx cloNIDine [Catapres] 0.1 mg PO Q12HR #60 tablet 04/07/21 Unknown Rx ED Physical Exam - General Limitations: Physical Limitation General appearance: alert, in no apparent distress - Head Head exam: Present: atraumatic, normocephalic - Eye Eye exam: Present: normal appearance, EOMI. Absent: nystagmus - ENT ENT exam: Present: normal exam, normal orophraynx, mucous membranes moist, normal external ear exam - Neck Neck exam: Present: normal inspection, full ROM. Absent: tenderness, men ingismus - Respiratory Respiratory exam: Present: rales. Absent: respiratory distress - Cardiovascular Cardiovascular Exam: Present: regular rate, normal rhythm, normal heart sounds, JVD. Absent: bradycardia, tachycardia, irregular rhythm, systolic murmur, diastolic murmur, rubs, gallop - GI/Abdominal GI/Abdominal exam: Present: soft. Absent: distended, tenderness, guarding, re bound, rigid, pulsatile mass - Extremities Exam Extremities exam: Present: normal inspection (Left upper extremity fistula appreciated, appropriate thrill, no redness, pus or streaking.), full ROM, pedal edema (1+ edema in the bilateral lower extremities), other (2+ pulses noted in the bilateral upper and lower extremities. There is no palpable cord. negat dave Homans sign. Muscular compartments are soft. The pelvis is stable.). Absent: calf tenderness - Back Exam Back exam: Present: normal inspection, full ROM. Absent: tenderness, CVA tenderness (R), CVA tenderness (L), paraspinal tenderness, vertebral tenderness - Neurological Exam Neurological exam: Present: alert, oriented X3, other (No facial droop. Tongue midline. Extraocular movements intact bilaterally. Facial sensation intact to light touch in V1, V2, V3 distribution bilaterally. 5 and a 5 strength in 4 extremities. Sensation intact to light touch in 4 extremities.). Absent: motor sensory deficit - Psychiatric Psychiatric exam: Present: anxious - Skin Skin exam: Present: warm, dry, intact, normal color. Absent: rash ED Course Vital Signs 03/03/22 03/03/22 08:56 09:06 Temperature 98.4 F 97.5 F L Pulse Rate 97 H 85 Respiratory 16 16 Rate Blood Pressure 208/108 201/96 [Right] O2 Sat by Pulse 99 96 Oximetry - Reevaluation(s) Reevaluation #1: 03/03/22 10:16 Differential diagnosis, including but not limited to: Pneumonia, CHF, UTI, hypoglycemia, end-stage renal disease on hemodialysis, volume overload, s ulfonylurea induced hypoglycemia Assessment and plan: 57-year-old female with hypoglycemia, now resolved, in the context of sulfonylurea medication use, requires admission for glycemic monitoring. Hold sulfonylureas and antidiabetic medications. Accu-Cheks, as needed glucose. Patient has evidence of volume overload, manifest by JVD, crackles, rales, and chest x-ray finding. Favor congestive heart failure/volume overload over pneumonia clinically. Have recommended admission to the medical service for observation and urgent hemodialysis. Patient is agreeable to this plan of care. Contacted nephrology on-call for patient's primary inside [employer], Dr. Pilar Meyer Discussed the patient's history, physical, and clinical impression. He will follow in consultation and arrange for urgent hemodialysis. Hospital physician, Dr. Parish Adorno to admit for hypoglycemia, end-stage renal disease requiring urgent hemodialysis, and volume overload. 03/03/22 11:10 Patient has recurrent hypoglycemia. Additional dextrose ordered, D10 drip ordered. ED Medical Decision Making - Lab Data Result diagrams: 03/03/22 09:38 03/03/22 09:38 Vital Signs 03/03/22 08:56 Temperature 98.4 F Pulse Rate 97 H Respiratory 16 Rate Blood Pressure 208/108 [Right] O2 Sat by Pulse 99 Oximetry Lab Results 03/03/22 03/03/22 03/03/22 Range/Units 09:38 09:38 09:38 WBC 5.2 (4.5-11.0) K/mm3 RBC 4.95 (3.65-5.03) M/mm3 Hgb 13.1 (10.1-14.3) gm/dl Hct 42.7 (30.3-42.9) % MCV 86 (79-97) fl MCH 27 L (28-32) pg MCHC 31 (30-34) % RDW 17.4 H (13.2-15.2) % Plt Count 151 (140-440) K/mm3 Lymph % (Auto) 5.7 L (13.4-35.0) % Baker % (Auto) 6.1 (0.0-7.3) % Eos % (Auto) 0.8 (0.0-4.3) % Baso % (Auto) 0.9 (0.0-1.8) % Lymph # (Auto) 0.3 L (1.2-5.4) K/mm3 Baker # (Auto) 0.3 (0.0-0.8) K/mm3 Eos # (Auto) 0.0 (0.0-0.4) K/mm3 Baso # (Auto) 0.0 (0.0-0.1) K/mm3 Seg Neutrophils % 86.5 H (40.0-70.0) % Seg Neutrophils # 4.5 (1.8-7.7) K/mm3 Sodium 136 L (137-145) mmol/L Potassium 3.6 (3.6-5.0) mmol/L Chloride 93.2 L (98-107) mmol/L Carbon Dioxide 26 (22-30) mmol/L Anion Gap 20 mmol/L BUN 51 H (7-17) mg/dL Creatinine 7.3 H (0.6-1.2) mg/dL Estimated GFR 7 ml/min BUN/Creatinine Ratio 7 % Glucose 72 (65-100) mg/dL Calcium 10.5 H (8.4-10.2) mg/dL Total Bilirubin 0.30 (0.1-1.2) mg/dL AST 7 (5-40) units/L ALT 6 L (7-56) units/L Alkaline Phosphatase 157 H (35-129) units/L Total Protein 7.2 (6.3-8.2) g/dL Albumin 3.8 L (3.9-5) g/dL Albumin/Globulin Ratio 1.1 % TSH 1.280 (0.270-4.200) mlU/mL - EKG Data -: EKG Interpreted by [facility] EKG shows normal: sinus rhythm Rate: normal - EKG Data 03/03/22 10:13 The EKG is interpreted at 09: 1 4 Sinus rhythm, 84 bpm. Left axis, normal P wave axis, low voltage, poor R wave progression. Abnormal EKG. QTC is prolonged. This is not a STEMI. - Radiology Data Radiology results: report reviewed, image reviewed CHEST 1 VIEW 03/03/2022 9:09 AM INDICATION / CLINICAL INFORMATION: esrd. COMPARISON: 04/05/2021 FINDINGS: Diffuse bilateral pulmonary opacities with right effusion persists. No pneumothorax is seen. IMPRESSION: 1. Bilateral pulmonary opacities and effusions persist Signer Name: Sebastian Macias MD Signed: 03/03/2022 8:31 AM Critical care attestation.: If time is entered above; I have spent that time in minutes in the direct care of this critically ill patient, excluding procedure time. ED Disposition Clinical Impression: ESRD (end stage renal disease) on dialysis, Hypoglycemia, Adverse effect of sulfonylurea, HTN (hypertension) Disposition: 09 ADMITTED INPATIENT Is pt being admited?: Yes Does the pt Need Aspirin: No Condition: Good Instructions: Hypertension (ED)
--- NOTE | 2022-03-03 09:35 | XRay Report ---
CHEST 1 VIEW 03/03/2022 9:09 AM INDICATION / CLINICAL INFORMATION: esrd. COMPARISON: 04/05/2021 FINDINGS: Diffuse bilateral pulmonary opacities with right effusion persists. No pneumothorax is seen. IMPRESSION: 1. Bilateral pulmonary opacities and effusions persist Signer Name: Sebastian Macias MD Signed: 03/03/2022 9:31 AM Workstation Name: [id number]
[2022-03-03] MEDS ORDERED: EPOETIN ALFA-EPBX 10,000 UNIT/1 ML VIAL SUB-Q PRN (10:00)
[2022-03-03] MEDS ORDERED: HEPARIN 10,000 UNITS/10 ML VIAL IV PRN (10:00)
[2022-03-03] MEDS ORDERED: SODIUM CHLORIDE 0.9% 100 ML IV PRN (10:00)
[2022-03-03 10:16] LABS: Basophils % (Auto) 0.9 % (0.0-1.8); Eosinophils % (Auto) 0.8 % (0.0-4.3); Lymphocytes # (Auto) 0.3 K/mm3 (1.2-5.4); Lymphocytes % (Auto) 5.7 % (13.4-35.0); Mean Corpuscular HGB Conc 31 % (30-34); Mean Corpuscular Volume 86 fl (79-97); Monocytes # (Auto) 0.3 K/mm3 (0.0-0.8); Monocytes % (Auto) 6.1 % (0.0-7.3); Platelet Count 151 K/mm3 (140-440); Red Blood Count 4.95 M/mm3 (3.65-5.03); Red Cell Distribution Width 17.4 % (13.2-15.2)
[2022-03-03 10:19] LABS: Albumin 3.8 g/dL (3.9-5); Calcium 10.5 mg/dL (8.4-10.2)
[2022-03-03 10:30] LABS: Hemoglobin 13.1 gm/dl (10.1-14.3)
[2022-03-03 10:31] LABS: Hematocrit 42.7 % (30.3-42.9)
[2022-03-03] MEDS ORDERED: DEXTROSE 50% IN WATER (25GM) 50 ML VIAL IV ONE (11:19)
[2022-03-03] MEDS ORDERED: DEXTROSE 10% IN WATER 1,000 ML IV SCH (12:00)
[2022-03-03] MEDS ORDERED: ONDANSETRON 4 MG/2 ML INJ IV PRN (13:00)
[2022-03-03] MEDS ORDERED: MORPHINE 4 MG/1 ML INJ IV PRN (13:00)
[2022-03-03] MEDS ORDERED: oxyCODONE /ACETAMINOPHEN 5-325MG TAB PO PRN (13:00)
[2022-03-03] MEDS ORDERED: ACETAMINOPHEN 325 MG TAB PO PRN (13:00)
[2022-03-03 14:17] LABS: Hepatitis B Surface Antigen Non-Reactive (Negative); Hepatitis C Virus Antibody Non-Reactive (NonReactive)
--- NOTE | 2022-03-03 14:54 | History and Physical Report ---
History of Present Illness Date of examination: 03/03/22 Date of admission: 03/03/22 10:50 Chief complaint: Hypoglycemia History of present illness: This is a pleasant and cooperative 57-year-old female who is due for hemodialysis today, who presents to the ER today with a complaint of painless hypoglycemia. She reports no dietary indiscretions. She reports compliance with her medications. She reportedly had a glucose of 17, which was corrected with IV and oral glucose prior to my personal evaluation. The patient reports that she feels like she is back to her baseline. She does have some shortness of breath, and feels like she is up on her water weight. She reports that she is due for hemodialysis. She did take her sulfonylurea last night as prescr ibed. Past History Past Medical History: diabetes, dialysis, ESRD Past Surgical History: Other (AV fistula) Social history: lives with family, full code Family history: hypertension Medications and Allergies Allergies Allergy/AdvReac Type Severity Reaction Status Date / Time No Known Allergies Allergy Verified 03/03/22 08:57 Home Medications Medication Instructions Recorded Confirmed Last Taken Type Folic Acid/Vit B Complex and C 800 mcg PO DAILY 04/05/21 04/05/21 1 Day Ago History [Dialyvite 800 Chewable Wafer] ~04/04/21 800 mcg Isosorbide Mononitrate ER 60 mg PO DAILY 04/05/21 04/05/21 1 Day Ago History ~04/04/21 Nifedipine ER 60 mg PO DAILY 04/05/21 04/05/21 1 Day Ago History ~04/04/21 Vitamin D2 1.25 mg PO 1XW 04/05/21 04/05/21 1 Day Ago History ~04/04/21 glipiZIDE XL [Glucotrol Xl] 2.5 mg PO DAILY 04/05/21 04/05/21 1 Day Ago History ~04/04/21 Metoprolol [Lopressor TAB] 25 mg PO BID #60 tablet 04/07/21 Unknown Rx Nicotine [Habitrol] 14 mg TD QDAY #30 patch 04/07/21 Unknown Rx Pantoprazole [Protonix TAB] 40 mg PO BIDAC #30 tablet 04/07/21 Unknown Rx Spironolactone [Aldactone] 50 mg PO QDAY #30 tablet 04/07/21 Unknown Rx cloNIDine [Catapres] 0.1 mg PO Q12HR #60 tablet 04/07/21 Unknown Rx Active Meds: Active Medications Acetaminophen (Acetaminophen 325 Mg Tab) 650 mg PO Q4H PRN PRN Reason: Pain MILD(1-3)/Fever >100.5/JAMA Dextrose (Dextrose 10% *Hypoglycemia) 75 ml IV PRN PRN PRN Reason: Hypoglycemia Epoetin Jak-epbx (Epoetin Jak-Epbx 10,000 Unit/1 Ml Vial) 10,000 unit SUB-Q AICHA PRN PRN Reason: hemodialysis Heparin Sodium (Porcine) (Heparin 10,000 Units/10 Ml Vial) 3,000 unit IV AICHA PRN PRN Reason: hemodialysis Heparin Sodium (Porcine) (Heparin 5,000 Unit/1 Ml Vial) 5,000 unit SUB-Q Q8HR PETE Sodium Chloride (Nacl 0.9%) 100 mls @ 999 mls/hr IV AICHA PRN PRN Reason: Hypotension Dextrose (D10w) 1,000 mls @ 100 mls/hr IV DIRECT PETE Isosorbide Mononitrate (Isosorbide Mononitrate Er 60 Mg Tab) 60 mg PO QDAY PETE Metoprolol Tartrate (Metoprolol Tartrate 25 Mg Tab) 25 mg PO BID PETE Morphine Sulfate (Morphine 4 Mg/1 Ml Inj) 2 mg IV Q4H PRN PRN Reason: Pain , Severe (7-10) Nicotine (Nicotine 14 Mg/24 Hr Patch) 14 mg TD QDAY PETE Nifedipine (Nifedipine Xl 60 Mg Tab) 60 mg PO QDAY PETE Ondansetron HCl (Ondansetron 4 Mg/2 Ml Inj) 4 mg IV Q8H PRN PRN Reason: Nausea And Vomiting Oxycodone/Acetaminophen (Oxycodone /Acetaminophen 5-325mg Tab) 1 tab PO Q6H PRN PRN Reason: Pain, Moderate (4-6) Pantoprazole Sodium (Pantoprazole 40 Mg Tab) 40 mg PO BIDAC PETE Sodium Chloride (Sodium Chloride 0.9% 10 Ml Flush Syringe) 10 ml IV BID PETE Sodium Chloride (Sodium Chloride 0.9% 10 Ml Flush Syringe) 10 ml IV PRN PRN PRN Reason: LINE FLUSH Spironolactone (Spironolactone 50 Mg Tab) 50 mg PO QDAY PETE Review of Systems All systems: negative Cardiovascular: shortness of breath, high blood pressure, leg edema Respiratory: cough Exam - Constitutional Vitals: Temp Pulse Resp BP Pulse Ox 97.5 F L 85 16 201/96 96 03/03/22 09:06 03/03/22 09:06 03/03/22 09:06 03/03/22 09:06 03/03/22 09:06 General appearance: Present: no acute distress - EENT Eyes: Present: PERRL, EOM intact ENT: hearing intact, clear oral mucosa, dentition normal - Neck Neck: Present: supple, normal ROM - Respiratory Respiratory effort: normal - Cardiovascular Rhythm: regular Heart Sounds: Present: S1 & S2 - Extremities Extremities: no ischemia, pulses intact, pulses symmetrical, normal temperature, normal color, abnormal (Left upper extremity AV fistula) Extremity abnormal: edema (Trace edema bilateral lower extremities) Peripheral Pulses: within normal limits - Abdominal General gastrointestinal: Present: soft, non-tender Female genitourinary: Present: deferred - Rectal Rectal Exam: deferred - Integumentary Integumentary: Present: clear, warm, dry - Musculoskeletal Musculoskeletal: strength equal bilaterally - Psychiatric Psychiatric: appropriate mood/affect, agitated - Neurologic Neurologic: CNII-XII intact - Allied Health Allied health notes reviewed: nursing Results - Labs CBC & Chem 7: 03/03/22 09:38 03/03/22 09:38 Labs: Laboratory Last Values WBC 5.2 K/mm3 (4.5-11.0) 03/03/22 09:38 RBC 4.95 M/mm3 (3.65-5.03) 03/03/22 09:38 Hgb 13.1 gm/dl (10.1-14.3) 03/03/22 09:38 Hct 42.7 % (30.3-42.9) 03/03/22 09:38 MCV 86 fl (79-97) 03/03/22 09:38 MCH 27 pg (28-32) L 03/03/22 09:38 MCHC 31 % (30-34) 03/03/22 09:38 RDW 17.4 % (13.2-15.2) H 03/03/22 09:38 Plt Count 151 K/mm3 (140-440) 03/03/22 09:38 Lymph % (Auto) 5.7 % (13.4-35.0) L 03/03/22 09:38 [place] % (Auto) 6.1 % (0.0-7.3) 03/03/22 09:38 Eos % (Auto) 0.8 % (0.0-4.3) 03/03/22 09:38 Baso % (Auto) 0.9 % (0.0-1.8) 03/03/22 09:38 Lymph # (Auto) 0.3 K/mm3 (1.2-5.4) L 03/03/22 09:38 [place] # (Auto) 0.3 K/mm3 (0.0-0.8) 03/03/22 09:38 Eos # (Auto) 0.0 K/mm3 (0.0-0.4) 03/03/22 09:38 Baso # (Auto) 0.0 K/mm3 (0.0-0.1) 03/03/22 09:38 Seg Neutrophils % 86.5 % (40.0-70.0) H 03/03/22 09:38 Seg Neutrophils # 4.5 K/mm3 (1.8-7.7) 03/03/22 09:38 Sodium 136 mmol/L (137-145) L 03/03/22 09:38 Potassium 3.6 mmol/L (3.6-5.0) 03/03/22 09:38 Chloride 93.2 mmol/L (98-107) L 03/03/22 09:38 Carbon Dioxide 26 mmol/L (22-30) 03/03/22 09:38 Anion Gap 20 mmol/L 03/03/22 09:38 BUN 51 mg/dL (7-17) H 03/03/22 09:38 Creatinine 7.3 mg/dL (0.6-1.2) H 03/03/22 09:38 Estimated GFR 7 ml/min 03/03/22 09:38 BUN/Creatinine Ratio 7 % 03/03/22 09:38 Glucose 72 mg/dL (65-100) 03/03/22 09:38 POC Glucose 120 mg/dL (70-105) H 03/03/22 11:31 Hemoglobin A1c 5.2 % (4-6) 03/03/22 09:38 Calcium 10.5 mg/dL (8.4-10.2) H 03/03/22 09:38 Total Bilirubin 0.30 mg/dL (0.1-1.2) 03/03/22 09:38 AST 7 units/L (5-40) 03/03/22 09:38 ALT 6 units/L (7-56) L 03/03/22 09:38 Alkaline Phosphatase 157 units/L (35-129) H 03/03/22 09:38 Total Protein 7.2 g/dL (6.3-8.2) 03/03/22 09:38 Albumin 3.8 g/dL (3.9-5) L 03/03/22 09:38 Albumin/Globulin Ratio 1.1 % 03/03/22 09:38 TSH 1.280 mlU/mL (0.270-4.200) 03/03/22 09:38 Hep Bs Antigen Non-reactive (Negative) 03/03/22 10:31 Hep B Core IgM Ab Non-reactive (NonReactive) 03/03/22 10:31 Hepatitis C Antibody Non-reactive (NonReactive) 03/03/22 10:31 Assessment and Plan Assessment and plan: #Hypoglycemia #Non-insulin dependent type II diabetes mellitus Blood glucose on presentation 17. Status post D50 and oral supplementation Discontinuing glipizide 2.5 mg daily in the setting of severe hypoglycemia - hemoglobin A1c: Pending - home regimen: Glipizide 2.5 mg - current regimen: None - blood glucose goal 140-180 while inpatient - continue to monitor #Uncontrolled hypertension - home medications: Spironolactone 50 mg daily, nifedipine 60 mg daily, metoprolol tartrate 25 mg twice daily, Imdur 60 mg daily, clonidine 0.1 mg twice daily - current medications: Imdur 60 mg daily, metoprolol tartrate 25 mg twice daily, nifedipine 60 mg daily, Aldactone 50 mg daily - SBP goal <160 and DBP goal <90 while inpatient - continue to monitor #Pulmonary edema Chest x-ray revealing bilateral consolidations, loss of right costophrenic angle, increased interstitial congestion -Should improve with hemodialysis. Low clinical suspicion for heart failure or pneumonia. Continue to monitor. #ESRD on hemodialysis -Access: Left upper extremity AV fistula -Outpatient schedule: Thursday, Thursday, Thursday -HD center: Unknown -Nephrology consulted; appreciate recs. -Renally dose medications and avoid nephrotoxic drugs. Renal diet. #Hypercalcemia Calcium 10.5 No clear etiology for elevated calcium level. Should improve with hemodialysis. Can monitor with repeat lab in the morning. Not administering IV fluids in the setting of increased volume status. #Elevated transaminase Alkaline phosphatase 157 Continue to monitor with CMP in the morning. #GERD Continue home pantoprazole 40 mg twice daily #Tobacco dependence #Tobacco/Smoking cessation counseling - Counseled patient about the importance of smoking cessation and the possible sequelae as a result of continued tobacco consumption. The patient expresses understanding. Continue nicotine patch 14 mg daily. -Time: +15 mins #Advanced care planning -Disease education conducted, care plan discussed, diagnoses discussed, p rognosis discussed, and patient acknowledges understanding with care plan -Time: +30 min Advance Directives: No VTE prophylaxis?: Chemical Plan of care discussed with patient/family: Yes
--- NOTE | 2022-03-03 14:55 | Consultation ---
History of Present Illness - Reason for Consult Consult date: 03/03/22 end stage renal disease - History of Present Illness The patient is a 57 YO female with history notable for Hypertension, DM-2, CHF and ESRD on hemodialysis (MWF) who presented to [facility] 03/03/22 with hypoglycemia. She reported not feeling well. She also reports some shortness of breath, due to increased fluid 2/2 missed HD. She missed the past 2 sessions of hemodialysis. She is compliant with her meds. The patient reports that she feels like she is back to her baseline. Denies any N, V, D, abd pain, fever, chills, cp, cough, leg swelling, dizziness or syncope. CXR showed fluid overload. Labs noted. Nephrology consulted for ESRD management. Past History Past Medical History: other (See HPI.) Medications and Allergies Allergies Allergy/AdvReac Type Severity Reaction Status Date / Time No Known Allergies Allergy Verified 03/03/22 08:57 Home Medications Medication Instructions Recorded Confirmed Last Taken Type Folic Acid/Vit B Complex and C 800 mcg PO DAILY 04/05/21 04/05/21 1 Day Ago History [Dialyvite 800 Chewable Wafer] ~04/04/21 800 mcg Vitamin D2 1.25 mg PO 1XW 04/05/21 04/05/21 1 Day Ago History ~04/04/21 Nicotine [Habitrol] 14 mg TD QDAY #30 patch 04/07/21 Unknown Rx ISOSORBIDE MONOnitrate [Imdur ER] 60 mg PO QDAY #30 tablet 03/04/22 Unknown Rx Isosorbide Mononitrate ER 60 mg PO DAILY #30 03/04/22 Unknown Rx Metoprolol [Lopressor TAB] 25 mg PO BID #60 tablet 03/04/22 Unknown Rx NIFEdipine XL [Procardia Xl] 60 mg PO QDAY #30 tablet 03/04/22 Unknown Rx Nifedipine ER 60 mg PO DAILY #30 03/04/22 Unknown Rx Pantoprazole [Protonix TAB] 40 mg PO BIDAC #30 tablet 03/04/22 Unknown Rx Spironolactone [Aldactone] 50 mg PO QDAY #30 tablet 03/04/22 Unknown Rx cloNIDine [Catapres] 0.1 mg PO Q12HR #60 tablet 03/04/22 Unknown Rx Active Meds: Active Medications Acetaminophen (Acetaminophen 325 Mg Tab) 650 mg PO Q4H PRN PRN Reason: Pain MILD(1-3)/Fever >100.5/JAMA Dextrose (Dextrose 10% *Hypoglycemia) 75 ml IV PRN PRN PRN Reason: Hypoglycemia Epoetin Jak-epbx (Epoetin Jak-Epbx 10,000 Unit/1 Ml Vial) 10,000 unit SUB-Q AICHA PRN PRN Reason: hemodialysis Heparin Sodium (Porcine) (Heparin 10,000 Units/10 Ml Vial) 3,000 unit IV AICHA PRN PRN Reason: hemodialysis Heparin Sodium (Porcine) (Heparin 5,000 Unit/1 Ml Vial) 5,000 unit SUB-Q Q8HR PETE Sodium Chloride (Nacl 0.9%) 100 mls @ 999 mls/hr IV AICHA PRN PRN Reason: Hypotension Dextrose (D10w) 1,000 mls @ 100 mls/hr IV DIRECT PETE Isosorbide Mononitrate (Isosorbide Mononitrate Er 60 Mg Tab) 60 mg PO QDAY PETE Metoprolol Tartrate (Metoprolol Tartrate 25 Mg Tab) 25 mg PO BID PETE Morphine Sulfate (Morphine 4 Mg/1 Ml Inj) 2 mg IV Q4H PRN PRN Reason: Pain , Severe (7-10) Nicotine (Nicotine 14 Mg/24 Hr Patch) 14 mg TD QDAY PETE Nifedipine (Nifedipine Xl 60 Mg Tab) 60 mg PO QDAY PETE Ondansetron HCl (Ondansetron 4 Mg/2 Ml Inj) 4 mg IV Q8H PRN PRN Reason: Nausea And Vomiting Oxycodone/Acetaminophen (Oxycodone /Acetaminophen 5-325mg Tab) 1 tab PO Q6H PRN PRN Reason: Pain, Moderate (4-6) Pantoprazole Sodium (Pantoprazole 40 Mg Tab) 40 mg PO BIDAC PETE Sodium Chloride (Sodium Chloride 0.9% 10 Ml Flush Syringe) 10 ml IV BID PETE Sodium Chloride (Sodium Chloride 0.9% 10 Ml Flush Syringe) 10 ml IV PRN PRN PRN Reason: LINE FLUSH Spironolactone (Spironolactone 50 Mg Tab) 50 mg PO QDAY PETE Review of Systems All systems: negative Exam - Vital Signs Vital signs: Vital Signs Temp Pulse Resp BP Pulse Ox 98.4 F 97 H 16 208/108 99 03/03/22 08:56 03/03/22 08:56 04/25/22 08:56 03/03/22 08:56 03/03/22 08:56 Results - Lab Results 03/03/22 09:38 03/04/22 03:59 Most recent lab results Calcium 10.5 mg/dL (8.4-10.2) H 03/03/22 09:38 Assessment and Plan 1. ESRD: Patient is on amintenance hemodialysis, MWF schedule. Last outpatient HD 02/24. Has L arm AVF / AVG. Meds dosage based on GFR. Hemodialysis: 03/03. 2. FEN: Volume overload, UF with HD tolerated. Counseled to limit salt and fluid intake. Strict renal diet. Binders as needed. Monitor lytes and volume status. 3. DM with hypoglycemia: Monitor bl glu. 4. HTN: Volume control thru HD. Advised to limit salt and fluid intake. Monitor BP. 5. H/o CHF: Lasix, strict I/Os, limit sodium & fluid intake. Volume control thru HD. Followed by Cards. Subjective: Patient was seen and examined at the bedside. General Appearance: General appearance: well-developed, appears stated age, no distress EENT: ATNC, MARIBEL, hearing intact, vision intact Neck: neck supple, trachea midline Respiratory: ctab Heart: regular, S1S2, no murmur Abdomen: soft, NT, BS heard Integumentary: no obvious rash Neurologic: AO, conversing, able to move extremities Ext: no edema Hemodialysis access: L arm AVF / AVG
[2022-03-03] MEDS ORDERED: cloNIDine 0.2 MG TAB PO STA (15:11)
[2022-03-03] MEDS ORDERED: SPIRONOLACTONE 50 MG TAB PO SCH (16:00)
[2022-03-03] MEDS ORDERED: PANTOPRAZOLE 40 MG TAB PO SCH (16:30)
[2022-03-03] MEDS ORDERED: hydrALAZINE 20 MG/1 ML INJ IV STA (17:26)
[2022-03-03] MEDS: HEPARIN 5,000 UNIT/1 ML VIAL SUB-Q SCH (22:29)
[2022-03-03] MEDS: METOPROLOL TARTRATE 25 MG TAB PO SCH (22:29)
[2022-03-04] MEDS ORDERED: DEXTROSE 50% IN WATER (25GM) 50 ML SYRINGE IV ONE (01:22)
[2022-03-04] MEDS ORDERED: hydrALAZINE 20 MG/1 ML INJ IV ONE ×2 (06:33→14:00)
[2022-03-04] MEDS: HEPARIN 5,000 UNIT/1 ML VIAL SUB-Q SCH ×2 (06:44→14:00)
[2022-03-04] MEDS ORDERED: NIFEdipine XL 60 MG TAB PO SCH (10:00)
[2022-03-04] MEDS ORDERED: ISOSORBIDE MONONITRATE PO SCH (10:00)
[2022-03-04] MEDS ORDERED: NICOTINE 14 MG/24 HR PATCH TD SCH (10:00)
--- NOTE | 2022-03-04 10:01 | Discharge Summary ---
Providers - Providers Date of Admission: 03/03/22 10:50 Date of discharge: 03/04/22 Attending physician: DELIA BLACKWELL 03/03/22 09:10 Consult to Physician [CONS] Urgent Comment: Consulting Provider: SOFYA BROWN Physician Instructions: Reason For Exam: esrd Primary care physician: SUPERVISOR COATING Hospitalization Reason for admission: Metabolic encephalopathy, hypoglycemia Condition: Good Hospital course: 57-year-old female who presented to the emergency department with admission diagnosis of metabolic encephalopathy, accelerated hypertension and hypoglycemia. Patient reported compliance with her medications but reportedly had hypoglycemia with a BG of 17 prior to admission. Patient received IV and oral glucose with resolution of hypoglycemia. The patient was continued on D10 which was discontinued and her BG remained stable. We will discontinue glipizide. Patient will be continued on hemodialysis schedule MWF. Dedicated discharge time 32 minutes Disposition: 30 STILL A PATIENT Final Discharge Diagnosis (Prints w/discharge instructions): Metabolic encephalopathy, hypoglycemia, ESRD on HD MWF, uncontrolled hypertension Core Measure Documentation - Palliative Care Palliative Care/ Comfort Measures: Not Applicable - Core Measures Any of the following diagnoses?: none Exam - Constitutional Vitals: Temp Pulse Resp BP Pulse Ox 99.0 F 73 18 178/72 92 03/04/22 05:49 03/04/22 07:38 03/04/22 07:38 03/04/22 07:38 03/04/22 07:38 General appearance: Present: no acute distress, well-nourished - EENT Eyes: Present: PERRL ENT: hearing intact, clear oral mucosa - Neck Neck: Present: supple, normal ROM - Respiratory Respiratory effort: normal Respiratory: bilateral: CTA - Cardiovascular Heart Sounds: Present: S1 & S2. Absent: rub, click - Extremities Extremities: pulses symmetrical, No edema Peripheral Pulses: within normal limits - Abdominal General gastrointestinal: Present: soft, non-tender, non-distended, normal bowel sounds Female genitourinary: Present: normal - Integumentary Integumentary: Present: clear, warm, dry - Musculoskeletal Musculoskeletal: gait normal, strength equal bilaterally - Psychiatric Psychiatric: appropriate mood/affect, intact judgment & insight - Neurologic Neurologic: CNII-XII intact, moves all extremities Plan Activity: advance as tolerated Weight Bearing Status: Weight Bear as Tolerated Diet: diabetic Follow up with: PRIMARY CARE, [Primary Care Provider] - 7 Days Prescriptions: Spironolactone [Aldactone] 50 mg PO QDAY #30 tablet cloNIDine [Catapres] 0.1 mg PO Q12HR #60 tablet Isosorbide Mononitrate ER 60 mg PO DAILY #30 Metoprolol [Lopressor TAB] 25 mg PO BID #60 tablet Nifedipine ER 60 mg PO DAILY #30 Pantoprazole [Protonix TAB] 40 mg PO BIDAC #30 tablet
[2022-03-04] MEDS: METOPROLOL TARTRATE 25 MG TAB PO SCH (10:49)
--- NOTE | 2022-03-04 11:59 | Progress Note ---
Assessment and Plan 1. ESRD: Patient is on amintenance hemodialysis, MWF schedule. Last outpatient HD 02/24. Has L arm AVF / AVG. Meds dosage based on GFR. Hemodialysis: 03/03. 2. FEN: Volume overload, UF with HD tolerated. Counseled to limit salt and fluid intake. Strict renal diet. Binders as needed. Monitor lytes and volume status. 3. DM with hypoglycemia: Monitor bl glu. 4. HTN: Volume control thru HD. Advised to limit salt and fluid intake. Monitor BP. 5. H/o CHF: Lasix, strict I/Os, limit sodium & fluid intake. Volume control thru HD. Monitor. Subjective: Patient was seen and examined at the chairside. Doing ok. General Appearance: General appearance: well-developed, appears stated age, no distress EENT: ATNC, MARIBEL, hearing intact, vision intact Neck: neck supple, trachea midline Respiratory: ctab Heart: regular, S1S2, no murmur Abdomen: soft, NT, BS heard Integumentary: no obvious rash Neurologic: AO, conversing, able to move extremities Ext: no edema Hemodialysis access: L arm AVF / AVG Subjective Date of service: 03/04/22 Objective - Vital Signs Vital signs: Vital Signs - 12hr 03/04/22 03/04/22 03/04/22 05:49 07:38 10:37 Temperature 99.0 F 98.8 F Pulse Rate 74 73 79 Respiratory 20 18 20 Rate Blood Pressure 186/82 178/72 184/79 O2 Sat by Pulse 92 92 96 Oximetry 03/04/22 03/04/22 10:44 10:48 Temperature 98.8 F Pulse Rate 78 78 Respiratory 20 Rate Blood Pressure 182/83 182/73 O2 Sat by Pulse 94 Oximetry - Lab 03/03/22 09:38 03/04/22 03:59 Most recent lab results Calcium 8.0 mg/dL (8.4-10.2) L D 03/04/22 03:59 Medications & Allergies - Medications Allergies/Adverse Reactions: Allergies No Known Allergies Allergy (Verified 03/03/22 08:57) Home Medications: Home Medications Medication Instructions Recorded Confirmed Last Taken Type Folic Acid/Vit B Complex and C 800 mcg PO DAILY 04/05/21 04/05/21 1 Day Ago History [Dialyvite 800 Chewable Wafer] ~04/04/21 800 mcg Vitamin D2 1.25 mg PO 1XW 04/05/21 04/05/21 1 Day Ago History ~04/04/21 Nicotine [Habitrol] 14 mg TD QDAY #30 patch 04/07/21 Unknown Rx ISOSORBIDE MONOnitrate [Imdur ER] 60 mg PO QDAY #30 tablet 03/04/22 Unknown Rx Isosorbide Mononitrate ER 60 mg PO DAILY #30 03/04/22 Unknown Rx Metoprolol [Lopressor TAB] 25 mg PO BID #60 tablet 03/04/22 Unknown Rx NIFEdipine XL [Procardia Xl] 60 mg PO QDAY #30 tablet 03/04/22 Unknown Rx Nifedipine ER 60 mg PO DAILY #30 03/04/22 Unknown Rx Pantoprazole [Protonix TAB] 40 mg PO BIDAC #30 tablet 03/04/22 Unknown Rx Spironolactone [Aldactone] 50 mg PO QDAY #30 tablet 03/04/22 Unknown Rx cloNIDine [Catapres] 0.1 mg PO Q12HR #60 tablet 03/04/22 Unknown Rx Active Medications: Generic Name Dose Route Start Last Admin Trade Name Freq PRN Reason Stop Dose Admin Acetaminophen 650 mg 03/03/22 13:00 Acetaminophen 325 Mg Tab PO Q4H PRN Pain MILD(1-3)/Fever >100.5/JAMA Dextrose 75 ml 03/03/22 09:09 Dextrose 10% *Hypoglycemia IV PRN PRN Hypoglycemia Epoetin Jak-epbx 10,000 unit 03/03/22 10:00 Epoetin Jak-Epbx 10,000 Unit/1 Ml Vial SUB-Q AICHA PRN hemodialysis Heparin Sodium (Porcine) 3,000 unit 03/03/22 10:00 03/03/22 12:45 Heparin 10,000 Units/10 Ml Vial IV 3,000 unit AICHA PRN Administration hemodialysis Heparin Sodium (Porcine) 5,000 unit 03/03/22 14:00 03/04/22 06:44 Heparin 5,000 Unit/1 Ml Vial SUB-Q 5,000 unit Q8HR PETE Administration Sodium Chloride 100 mls @ 999 mls/hr 03/03/22 10:00 Nacl 0.9% IV AICHA PRN Hypotension Dextrose 1,000 mls @ 100 mls/hr 03/03/22 12:00 04/26/22 02:08 D10w IV 75 mls/hr DIRECT PETE Administration Isosorbide Mononitrate 60 mg 03/04/22 10:00 03/04/22 10:49 Isosorbide Mononitrate Er 60 Mg Tab PO 60 mg QDAY PETE Administration Metoprolol Tartrate 25 mg 03/03/22 22:00 03/04/22 10:49 Metoprolol Tartrate 25 Mg Tab PO 25 mg BID PETE Administration Morphine Sulfate 2 mg 03/03/22 13:00 Morphine 4 Mg/1 Ml Inj IV Q4H PRN Pain , Severe (7-10) Nicotine 14 mg 03/04/22 10:00 03/04/22 10:49 Nicotine 14 Mg/24 Hr Patch TD Not Given QDAY PETE Nifedipine 60 mg 03/04/22 10:00 03/04/22 10:50 Nifedipine Xl 60 Mg Tab PO 60 mg QDAY PETE Administration Ondansetron HCl 4 mg 03/03/22 13:00 Ondansetron 4 Mg/2 Ml Inj IV Q8H PRN Nausea And Vomiting Oxycodone/Acetaminophen 1 tab 03/03/22 13:00 Oxycodone /Acetaminophen 5-325mg Tab PO Q6H PRN Pain, Moderate (4-6) Pantoprazole Sodium 40 mg 03/03/22 16:30 03/04/22 10:49 Pantoprazole 40 Mg Tab PO 40 mg BIDAC PETE Administration Sodium Chloride 10 ml 03/03/22 22:00 03/03/22 22:29 Sodium Chloride 0.9% 10 Ml Flush Syringe IV 10 ml BID PETE Administration Sodium Chloride 10 ml 03/03/22 13:00 Sodium Chloride 0.9% 10 Ml Flush Syringe IV PRN PRN LINE FLUSH Spironolactone 50 mg 03/03/22 16:00 03/04/22 10:48 Spironolactone 50 Mg Tab PO 50 mg QDAY PETE Administration
[2022-03-04 14:10] VITALS: BP 168/67
[2022-03-04] MEDS ORDERED: NIFEDIPINE PO SCH (16:00)
--- NOTE | 2022-03-05 17:45 | Electrocardiograph Report ---
[facility] Test Date: 2022-03-03 Test Time: 09:14:38 Pat Name: KVNG HAILE Department: Room: A391 Gender: F Engineer/Conductor: ISABEL : 1965 Requested By: ELVIS DIAZ Order Number: [id number] Reading MD: Nerissa Dos Santos Measurements Intervals [place] Rate: 84 P: 59 NM: 156 QRS: 5 QRSD: 92 T: QT: 446 QTc: 529 Interpretive Statements Sinus rhythm Probable anteroseptal infarct, old Nonspecific T abnormalities, lateral leads Prolonged QT interval Compared to ECG 04/05/2021 01:40:01 No significant change Electronically Signed On 03-05-2022 17:45:32 EDT by Nerissa Dos Santos
== END 2022-03-04 15:00 | disposition home or self-care (01) ==
LOC: ED 08:51 → 3A 10:50 → INTOOBSV 10:50
PROVIDERS: ADMIT Student in an Organized Health Care Education/Training Program; ATTEND Hospitalist
DX: E87.70 Fluid overload, unspecified (principal); T38.3X5A Adverse effect of insulin and oral hypoglycemic [antidiabetic] drugs, initial encounter; I13.2 Hypertensive heart and chronic kidney disease with heart failure and with stage 5 chronic kidney disease, or end stage renal disease; E11.649 Type 2 diabetes mellitus with hypoglycemia without coma; I50.9 Heart failure, unspecified; N18.6 End stage renal disease; E11.22 Type 2 diabetes mellitus with diabetic chronic kidney disease; J81.1 Chronic pulmonary edema; G93.41 Metabolic encephalopathy; E83.52 Hypercalcemia; K21.9 Gastro-esophageal reflux disease without esophagitis; R74.01 Elevation of levels of liver transaminase levels; F17.210 Nicotine dependence, cigarettes, uncomplicated; Z99.2 Dependence on renal dialysis; Z79.899 Other long term (current) drug therapy; Z98.891 History of uterine scar from previous surgery; Z98.890 Other specified postprocedural states
CPT/HCPCS: 36415; 71045; 80048; 80053; 80074; 82947; 82962; 83036; 84443; 85025; 93005; 96361; 96372; 96374; 96375; 96376; 99285; G0378; J0360; J1644; J3490

== ENCOUNTER 2022-04-07 15:48 | Emergency (ER) | payer OTHER, MEDICARE ==
[2022-04-07 16:36] LABS: Basophils # (Auto) 0.1 K/mm3 (0.0-0.1); Basophils % (Auto) 0.7 % (0.0-1.8); Eosinophils # (Auto) 0.1 K/mm3 (0.0-0.4); Eosinophils % (Auto) 0.7 % (0.0-4.3); Hematocrit 35.4 % (30.3-42.9); Hemoglobin 11.5 gm/dl (10.1-14.3); Lymphocytes # (Auto) 0.7 K/mm3 (1.2-5.4); Lymphocytes % (Auto) 8.9 % (13.4-35.0); Mean Corpuscular HGB Conc 32 % (30-34); Mean Corpuscular Volume 85 fl (79-97); Monocytes # (Auto) 0.4 K/mm3 (0.0-0.8); Monocytes % (Auto) 4.9 % (0.0-7.3); Platelet Count 203 K/mm3 (140-440); Red Blood Count 4.16 M/mm3 (3.65-5.03); Red Cell Distribution Width 17.9 % (13.2-15.2)
[2022-04-07 16:59] LABS: Albumin 3.4 g/dL (3.9-5); Calcium 8.5 mg/dL (8.4-10.2)
--- NOTE | 2022-04-07 22:17 | XRay Report ---
. XR chest routine 2V INDICATION / CLINICAL INFORMATION: SOB. COMPARISON: 03/03/2022 FINDINGS: SUPPORT DEVICES: None. HEART /PULMONARY VASCULATURE: Cardiac enlargement and pulmonary vasculature congestion. LUNGS / PLEURA: Diffuse increased interstitial markings remain. There is persistent right pleural eff usion and adjacent airspace consolidation. No discrete infiltrate or effusion is seen in the left marnie g base. No pneumothorax. IMPRESSION: Persistent right pleural effusion and right basilar airspace consolidation, unchanged from prior stud y on 03/03/2022. This may reflect residual or recurrent pneumonia or scarring. Underlying mild congest dave changes are also present. Signer Name: John Cox MD Signed: 04/07/2022 10:13 PM Workstation Name: [id number]
--- NOTE | 2022-04-07 22:25 | Emergency Department Report ---
HPI - General Chief Complaint: Medical Clearance Time Seen by Provider: 04/07/22 21:57 - HPI HPI: The patient has missed the last 4 consecutive hemodialysis sessions because she just does not want to go. Today she just does not feel well but her daughter made her come to the emergency department to get checked to make sure she is okay. The patient denies nausea vomiting fever chills chest pain shortness of breath headache focal weakness or any other associated symptoms. ED Past Medical Hx - Past Medical History Hx Hypertension: Yes Hx Congestive Heart Failure: Yes Hx Diabetes: Yes Hx Renal Disease: Yes (Dialysis) Additional medical history: anemia - Surgical History Additional Surgical History: , Left upper arm fistula - Social History Smoking Status: Never Smoker - Medications Home Medications: Home Medications Medication Instructions Recorded Confirmed Last Taken Type Folic Acid/Vit B Complex and C 800 mcg PO DAILY 04/05/21 04/05/21 1 Day Ago History [Dialyvite 800 Chewable Wafer] ~04/04/21 800 mcg Vitamin D2 1.25 mg PO 1XW 04/05/21 04/05/21 1 Day Ago History ~04/04/21 Nicotine [Habitrol] 14 mg TD QDAY #30 patch 04/07/21 Unknown Rx ISOSORBIDE MONOnitrate [Imdur ER] 60 mg PO QDAY #30 tablet 03/04/22 Unknown Rx Isosorbide Mononitrate ER 60 mg PO DAILY #30 03/04/22 Unknown Rx Metoprolol [Lopressor TAB] 25 mg PO BID #60 tablet 03/04/22 Unknown Rx NIFEdipine XL [Procardia Xl] 60 mg PO QDAY #30 tablet 03/04/22 Unknown Rx Nifedipine ER 60 mg PO DAILY #30 03/04/22 Unknown Rx Pantoprazole [Protonix TAB] 40 mg PO BIDAC #30 tablet 03/04/22 Unknown Rx Spironolactone [Aldactone] 50 mg PO QDAY #30 tablet 03/04/22 Unknown Rx cloNIDine [Catapres] 0.1 mg PO Q12HR #60 tablet 03/04/22 Unknown Rx ED Review of Systems ROS: Stated complaint: DIALYSIS Other details as noted in HPI All other systems reviewed and negative. Physical Exam - Physical Exam Vital Signs: Vital Signs 04/07/22 15:56 Temperature 97.6 F Respiratory 26 H Rate Blood Pressure 117/84 O2 Sat by Pulse 100 Oximetry Physical Exam: Physical Exam: Constitutional: AAOX3. No acute distress. No diaphoresis. HENT: Normocephalic. Pupils equal and reactive. No throat edema or erythema. Neck: No neck rigidity or tenderness. Cardiovascular: Heart sounds: No murmur. Normal rate and regular rhythm. Pulses: Intact distal pulses. Lungs: No wheezing or rales. Chest wall: No tenderness. Abdominal: No distension. No mass/pulsatile mass. No abdominal tenderness, guarding nor rebound. Back: No CVA TTP. Musculoskeletal: Normal range of motion. No edema, No calf TTP. The patient has an intact left AV fistula on her arm with a good thrill. Skin: Warm and dry. Neurological: Alert and oriented to person, place, and time. Psychiatric: Mood and affect normal. Normal cognition and memory. Normal judgement. ED Course Vital Signs 04/07/22 15:56 Temperature 97.6 F Respiratory 26 H Rate Blood Pressure 117/84 O2 Sat by Pulse 100 Oximetry - Reevaluation(s) Reevaluation #1: 04/07/22 22:22 The patient's laboratories showed a normal potassium level with an elevated creatinine. She is saturating at 97% on room air and denies any shortness of breath. Her chest x-ray does not show overt volume overload. I will discharge her with instructions to go to her next hemodialysis due in 2 days or return if any other issues arise. EKG done at 1608 showed a rate of 66, normal. The rhythm is sinus rhythm, normal. There is 1 premature ventricular complex. There is borderline T abnormalities in diffuse leads. 04/07/22 22:25 ED Medical Decision Making - Lab Data Result diagrams: 04/07/22 16:22 04/07/22 16:22 Critical care attestation.: If time is entered above; I have spent that time in minutes in the direct care of this critically ill patient, excluding procedure time. ED Disposition Clinical Impression: End stage renal disease Disposition: HOME / SELF CARE / HOMELESS Is pt being admited?: No Does the pt Need Aspirin: No Condition: Stable Instructions: Dialysis Additional Instructions: It is important that you get hemodialysis this coming Thursday, May 09, 2022.
[2022-04-08 00:30] VITALS: BP 113/67
--- NOTE | 2022-04-08 10:42 | Electrocardiograph Report ---
[facility] Test Date: 2022-04-07 Test Time: 16:08:40 Pat Name: KVNG HAILE Department: Room: Gender: F Manager Cosmetics: VALERY : 1965 Requested By: JOSE MARX Order Number: [id number] Reading MD: Akli Islas Measurements Intervals [place] Rate: 66 P: 24 VA: 144 QRS: -7 QRSD: 88 T: -1 QT: 465 QTc: 475 Interpretive Statements Sinus rhythm Ventricular premature complex Borderline T abnormalities, diffuse leads Compared to ECG 03/03/2022 09:14:38 Ventricular premature complex(es) now present Myocardial infarct finding no longer present Prolonged QT interval no longer present T-wave abnormality still present Electronically Signed On 04-08-2022 10:41:42 EDT by Akil Islas
== END 2022-04-07 22:25 | disposition home or self-care (01) ==
LOC: ED 15:48
DX: I13.2 Hypertensive heart and chronic kidney disease with heart failure and with stage 5 chronic kidney disease, or end stage renal disease (principal); E11.22 Type 2 diabetes mellitus with diabetic chronic kidney disease; N18.6 End stage renal disease; I50.9 Heart failure, unspecified; Z99.2 Dependence on renal dialysis; D64.9 Anemia, unspecified; Z98.890 Other specified postprocedural states
CPT/HCPCS: 36415; 71046; 80053; 83735; 84100; 85025; 93005; 99284

== ENCOUNTER 2022-04-23 17:25 | Emergency (ER) | payer OTHER, MEDICARE ==
[2022-04-23 19:43] LABS: Basophils % (Auto) 0.4 % (0.0-1.8); Eosinophils # (Auto) 0.1 K/mm3 (0.0-0.4); Eosinophils % (Auto) 1.2 % (0.0-4.3); Hematocrit 33.3 % (30.3-42.9); Hemoglobin 10.7 gm/dl (10.1-14.3); Lymphocytes # (Auto) 0.8 K/mm3 (1.2-5.4); Lymphocytes % (Auto) 9.2 % (13.4-35.0); Mean Corpuscular HGB Conc 32 % (30-34); Mean Corpuscular Volume 85 fl (79-97); Monocytes # (Auto) 0.4 K/mm3 (0.0-0.8); Platelet Count 237 K/mm3 (140-440); Red Cell Distribution Width 17.8 % (13.2-15.2)
[2022-04-23 19:45] LABS: Albumin 3.2 g/dL (3.9-5); Blood Urea Nitrogen 53 mg/dL (7-17); Calcium 8.7 mg/dL (8.4-10.2); Hemolysis Index 7
[2022-04-23 19:49] LABS: Alanine Aminotransferase < 5 units/L (7-56); BUN/Creatinine Ratio 7; Bilirubin,Direct < 0.2 mg/dL (0-0.2)
[2022-04-23] MEDS ORDERED: hydrALAZINE 20 MG/1 ML INJ ONE (20:39)
--- NOTE | 2022-04-23 20:40 | Emergency Department Report ---
<CASSANDRA LEDESMA - Last Filed: 04/23/22 20:41> ED Abdominal Pain HPI - General Chief Complaint: Abdominal Pain Stated Complaint: HERNIA/FLUID BUILD UP Time Seen by Provider: 04/23/22 18:32 Source: patient, EMS Mode of arrival: Stretcher Limitations: No Limitations - History of Present Illness Initial Comments: Patient is a 57-year-old female presenting to ED with complaint of abdominal distention and abdominal pain worsening over the past week. She reports history of abdominal hernia however denies any invasive treatment for this. Her only abdominal surgery was a . She reports 1 episode of vomiting yesterday. She is having bowel movements. History of end-stage renal disease on dialysis Thursday. Missed dialysis today due to her pain. Severity scale (0 -10): 0 - Related Data Home Medications Medication Instructions Recorded Confirmed Last Taken Folic Acid/Vit B Complex and C 800 mcg PO DAILY 04/05/21 04/05/21 1 Day Ago [Dialyvite 800 Chewable Wafer] ~04/04/21 800 mcg Vitamin D2 1.25 mg PO 1XW 04/05/21 04/05/21 1 Day Ago ~04/04/21 Previous Rx's Medication Instructions Recorded Last Taken Type Nicotine [Habitrol] 14 mg TD QDAY #30 patch 04/07/21 Unknown Rx ISOSORBIDE MONOnitrate [Imdur ER] 60 mg PO QDAY #30 tablet 03/04/22 Unknown Rx Isosorbide Mononitrate ER 60 mg PO DAILY #30 03/04/22 Unknown Rx Metoprolol [Lopressor TAB] 25 mg PO BID #60 tablet 03/04/22 Unknown Rx NIFEdipine XL [Procardia Xl] 60 mg PO QDAY #30 tablet 03/04/22 Unknown Rx Nifedipine ER 60 mg PO DAILY #30 03/04/22 Unknown Rx Pantoprazole [Protonix TAB] 40 mg PO BIDAC #30 tablet 03/04/22 Unknown Rx Spironolactone [Aldactone] 50 mg PO QDAY #30 tablet 03/04/22 Unknown Rx cloNIDine [Catapres] 0.1 mg PO Q12HR #60 tablet 03/04/22 Unknown Rx Allergies Allergy/AdvReac Type Severity Reaction Status Date / Time No Known Allergies Allergy Verified 04/23/22 17:47 ED Review of Systems Comment: All other systems reviewed and negative Constitutional: denies: chills, fever Respiratory: denies: cough, shortness of breath, wheezing Cardiovascular: denies: chest pain, palpitations Gastrointestinal: abdominal pain, vomiting Genitourinary: denies: urgency, dysuria, discharge Musculoskeletal: denies: back pain, joint swelling, arthralgia Skin: denies: rash, lesions Neurological: denies: headache, weakness, paresthesias Psychiatric: denies: anxiety, depression ED Past Medical Hx - Past Medical History Hx Hypertension: Yes Hx Congestive Heart Failure: Yes Hx Diabetes: Yes Hx Renal Disease: Yes (Dialysis) Additional medical history: anemia - Surgical History Additional Surgical History: , Left upper arm fistula - Social History Smoking Status: Former Smoker - Medications Home Medications: Home Medications Medication Instructions Recorded Confirmed Last Taken Type Folic Acid/Vit B Complex and C 800 mcg PO DAILY 04/05/21 04/05/21 1 Day Ago History [Dialyvite 800 Chewable Wafer] ~04/04/21 800 mcg Vitamin D2 1.25 mg PO 1XW 04/05/21 04/05/21 1 Day Ago History ~04/04/21 Nicotine [Habitrol] 14 mg TD QDAY #30 patch 04/07/21 Unknown Rx ISOSORBIDE MONOnitrate [Imdur ER] 60 mg PO QDAY #30 tablet 03/04/22 Unknown Rx Isosorbide Mononitrate ER 60 mg PO DAILY #30 03/04/22 Unknown Rx Metoprolol [Lopressor TAB] 25 mg PO BID #60 tablet 03/04/22 Unknown Rx NIFEdipine XL [Procardia Xl] 60 mg PO QDAY #30 tablet 03/04/22 Unknown Rx Nifedipine ER 60 mg PO DAILY #30 03/04/22 Unknown Rx Pantoprazole [Protonix TAB] 40 mg PO BIDAC #30 tablet 03/04/22 Unknown Rx Spironolactone [Aldactone] 50 mg PO QDAY #30 tablet 03/04/22 Unknown Rx cloNIDine [Catapres] 0.1 mg PO Q12HR #60 tablet 03/04/22 Unknown Rx ED Physical Exam - General Limitations: No Limitations General appearance: alert, in no apparent distress - Head Head exam: Present: atraumatic, normocephalic - Respiratory Respiratory exam: Present: normal lung sounds bilaterally. Absent: respiratory distress, wheezes - Cardiovascular Cardiovascular Exam: Present: regular rate, normal rhythm, normal heart sounds - GI/Abdominal GI/Abdominal exam: Present: distended (Abdomen significantly distended), tenderness (Moderate generalized tenderness. Palpable periumbilical mass) - Rectal Rectal exam: Present: deferred - Neurological Exam Neurological exam: Present: alert, oriented X3 - Psychiatric Psychiatric exam: Present: normal affect, normal mood - Skin Skin exam: Present: warm, dry, intact, normal color ED Medical Decision Making - Lab Data Result diagrams: 04/23/22 19:12 04/23/22 19:12 ED Disposition Clinical Impression: Acute abdominal pain, Malignant hypertension Disposition: HOME / SELF CARE / HOMELESS Condition: Stable Instructions: Abdominal Pain (ED), Hypertension (ED), Hypertension, Adult, [id number], Abdominal Pain, Adult Referrals: PRIMARY CARE, [Primary Care Provider] - 3-5 Days <MICHELLE MISTRY - Last Filed: 04/24/22 01:31> ED Review of Systems ROS: Stated complaint: HERNIA/FLUID BUILD UP Other details as noted in HPI ED Course Vital Signs 04/23/22 04/23/22 04/23/22 17:46 20:30 20:41 Temperature 98.3 F 98.2 F Pulse Rate 73 75 76 Respiratory 19 Rate Blood Pressure 222/89 222/89 Blood Pressure 200/94 222/89 [Left] O2 Sat by Pulse 97 94 Oximetry 04/23/22 04/24/22 22:20 00:43 Temperature Pulse Rate 78 83 Respiratory 20 Rate Blood Pressure 209/89 Blood Pressure [Left] O2 Sat by Pulse 93 Oximetry ED Medical Decision Making - Lab Data Result diagrams: 04/23/22 19:12 04/23/22 19:12 - Radiology Data Radiology results: report reviewed - Medical Decision Making Patient is a 57-year-old female presenting to ED with complaint of abdominal distention and abdominal pain worsening over the past week. She reports history of abdominal hernia however denies any invasive treatment for this. Her only abdominal surgery was a . She reports 1 episode of vomiting yesterday. She is having bowel movements. History of end-stage renal disease on dialysis Thursday. Missed dialysis today due to her pain. Labs reviewed. CT abdomen and pelvis showed anasarca but no acute finding. Patient received morphine and Zofran. Patient stated that her pain is much better. Patient also received hydralazine 20 mg IV for blood pressure with significant improvement. Patient advised to follow-up with her dialysis as a scheduled on Thursday and advised to return to the ER if she develop any new symptoms. She also advised to follow-up with her primary doctor in the next 2 to 3 days. Critical care attestation.: If time is entered above; I have spent that time in minutes in the direct care of this critically ill patient, excluding procedure time. ED Disposition Is pt being admited?: No
[2022-04-23] MEDS: hydrALAZINE 20 MG/1 ML INJ IV PRN (20:41)
--- NOTE | 2022-04-23 21:29 | Cat Scan Report ---
CT ABDOMEN AND PELVIS WITHOUT CONTRAST INDICATION / CLINICAL INFORMATION: Unspecified abdominal pain. TECHNIQUE: Axial CT images were obtained through the abdomen and pelvis without IV contrast. All CT scans at [facility] location are performed using CT dose reduction for ALARA by means of automated exposure control. COMPARISON: 2 views of the chest from 04/07/2022. FINDINGS: LOWER CHEST: There is a moderate right pleural effusion with associated probable atelectasis. Stable cardiomegaly with severe coronary artery calcification. No other significant abnormality. LIVER: No significant abnormality. GALLBLADDER: No significant abnormality. BILE DUCTS: No significant abnormality. PANCREAS: Not well-visualized. No distinct acute abnormality. SPLEEN: No significant abnormality. ADRENALS: No significant abnormality. RIGHT KIDNEY/URETER: No significant abnormality. LEFT KIDNEY/URETER: No significant abnormality. STOMACH/SMALL BOWEL: No significant abnormality. COLON: No significant abnormality. APPENDIX: No significant abnormality. PERITONEUM: Large amount of ascites. No free air. No fluid collection. LYMPH NODES: No significant adenopathy. VASCULATURE: There is severe generalized atherosclerosis. URINARY BLADDER: No significant abnormality. REPRODUCTIVE ORGANS: No significant abnormality. ADDITIONAL FINDINGS: Anasarca is noted. Multiple small/moderate ventral hernia is seen containing asc ites. BONES: Nonspecific multiple lucent lesions are seen along the sacrum and the posterior wings of the i liac bones. A account retention representative posterior wedging left iliac bone lesion on image 135 of series 2 measur es 8 mm. No other significant abnormality. IMPRESSION: 1. Large amount of ascites. 2. Moderate right pleural effusion with associated probable atelectasis. 3. Nonspecific lucent osseous lesions throughout the pelvis. Please correlate with previously perform ed cross-sectional imaging of the pelvis to determine the stability of these findings. Signer Name: Nghia Multani MD Signed: 04/23/2022 9:25 PM Workstation Name: [id number]
[2022-04-23] MEDS ORDERED: MORPHINE 4 MG/1 ML INJ IV ONE (22:38)
[2022-04-23] MEDS ORDERED: ONDANSETRON 4 MG/2 ML INJ IV ONE (22:38)
[2022-04-24] MEDS: hydrALAZINE 20 MG/1 ML INJ IV PRN (00:43)
[2022-04-24 01:45] VITALS: BP 163/72
== END 2022-04-24 06:19 | disposition home or self-care (01) ==
LOC: ED 17:25
DX: R10.9 Unspecified abdominal pain (principal); I13.2 Hypertensive heart and chronic kidney disease with heart failure and with stage 5 chronic kidney disease, or end stage renal disease; E11.22 Type 2 diabetes mellitus with diabetic chronic kidney disease; N18.6 End stage renal disease; I50.9 Heart failure, unspecified; Z99.2 Dependence on renal dialysis; D64.9 Anemia, unspecified; Z98.890 Other specified postprocedural states; Z87.891 Personal history of nicotine dependence
CPT/HCPCS: 36415; 74176; 80048; 80076; 83690; 85025; 96374; 96375; 96376; 99284; J0360; J2270; J2405

== ENCOUNTER 2022-04-26 16:07 | Emergency (ER) | payer MEDICARE ==
[2022-04-26 16:19] VITALS: BP 111/63
--- NOTE | 2022-04-26 16:56 | Emergency Department Report ---
ED General Adult HPI - General Chief complaint: Altered Mental Status Stated complaint: AMS/CHIRAG Time Seen by Provider: 04/26/22 16:48 Source: EMS Mode of arrival: Stretcher Limitations: Altered Mental Status - History of Present Illness Initial comments: Patient was brought in for altered mental status however she is alert and oriented she just states that she feels weak. She states that she last had dialysis on Thursday. She states that she is not having any fevers or chills it is just that she feels tired she has not been having any nausea or vomiting. Severity scale (0 -10): 0 - Related Data Home Medications Medication Instructions Recorded Confirmed Last Taken Folic Acid/Vit B Complex and C 800 mcg PO DAILY 04/05/21 04/05/21 1 Day Ago [Dialyvite 800 Chewable Wafer] ~04/04/21 800 mcg Vitamin D2 1.25 mg PO 1XW 04/05/21 04/05/21 1 Day Ago ~04/04/21 Previous Rx's Medication Instructions Recorded Last Taken Type Nicotine [Habitrol] 14 mg TD QDAY #30 patch 04/07/21 Unknown Rx ISOSORBIDE MONOnitrate [Imdur ER] 60 mg PO QDAY #30 tablet 03/04/22 Unknown Rx Isosorbide Mononitrate ER 60 mg PO DAILY #30 03/04/22 Unknown Rx Metoprolol [Lopressor TAB] 25 mg PO BID #60 tablet 03/04/22 Unknown Rx NIFEdipine XL [Procardia Xl] 60 mg PO QDAY #30 tablet 03/04/22 Unknown Rx Nifedipine ER 60 mg PO DAILY #30 03/04/22 Unknown Rx Pantoprazole [Protonix TAB] 40 mg PO BIDAC #30 tablet 03/04/22 Unknown Rx Spironolactone [Aldactone] 50 mg PO QDAY #30 tablet 03/04/22 Unknown Rx cloNIDine [Catapres] 0.1 mg PO Q12HR #60 tablet 03/04/22 Unknown Rx Ondansetron [Zofran Odt] 4 mg PO Q8HR PRN #14 tab.rapdis 04/24/22 Unknown Rx traMADoL [Ultram 50 MG tab] 50 mg PO Q4HR PRN #14 tablet 04/24/22 Unknown Rx Allergies Allergy/AdvReac Type Severity Reaction Status Date / Time No Known Allergies Allergy Verified 06/18/22 16:19 ED Review of Systems ROS: Stated complaint: AMS/CHIRAG Other details as noted in HPI Constitutional: weakness. denies: chills, fever Eyes: denies: eye pain, eye discharge, vision change ENT: denies: ear pain, throat pain Respiratory: denies: cough, shortness of breath, wheezing Cardiovascular: denies: chest pain, palpitations Endocrine: no symptoms reported Gastrointestinal: denies: abdominal pain, nausea, diarrhea Genitourinary: denies: urgency, dysuria, discharge Musculoskeletal: denies: back pain, joint swelling, arthralgia Skin: denies: rash, lesions Neurological: denies: headache, weakness, paresthesias Psychiatric: denies: anxiety, depression Hematological/Lymphatic: denies: easy bleeding, easy bruising ED Past Medical Hx - Past Medical History Previous Medical History?: Yes Hx Hypertension: Yes Hx Congestive Heart Failure: Yes Hx Diabetes: Yes Hx Renal Disease: Yes (Dialysis) Additional medical history: anemia - Surgical History Additional Surgical History: , Left upper arm fistula - Social History Smoking Status: Former Smoker - Medications Home Medications: Home Medications Medication Instructions Recorded Confirmed Last Taken Type Folic Acid/Vit B Complex and C 800 mcg PO DAILY 04/05/21 04/05/21 1 Day Ago History [Dialyvite 800 Chewable Wafer] ~04/04/21 800 mcg Vitamin D2 1.25 mg PO 1XW 04/05/21 04/05/21 1 Day Ago History ~04/04/21 Nicotine [Habitrol] 14 mg TD QDAY #30 patch 04/07/21 Unknown Rx ISOSORBIDE MONOnitrate [Imdur ER] 60 mg PO QDAY #30 tablet 03/04/22 Unknown Rx Isosorbide Mononitrate ER 60 mg PO DAILY #30 03/04/22 Unknown Rx Metoprolol [Lopressor TAB] 25 mg PO BID #60 tablet 03/04/22 Unknown Rx NIFEdipine XL [Procardia Xl] 60 mg PO QDAY #30 tablet 03/04/22 Unknown Rx Nifedipine ER 60 mg PO DAILY #30 03/04/22 Unknown Rx Pantoprazole [Protonix TAB] 40 mg PO BIDAC #30 tablet 03/04/22 Unknown Rx Spironolactone [Aldactone] 50 mg PO QDAY #30 tablet 03/04/22 Unknown Rx cloNIDine [Catapres] 0.1 mg PO Q12HR #60 tablet 03/04/22 Unknown Rx Ondansetron [Zofran Odt] 4 mg PO Q8HR PRN #14 tab.rapdis 04/24/22 Unknown Rx traMADoL [Ultram 50 MG tab] 50 mg PO Q4HR PRN #14 tablet 04/24/22 Unknown Rx ED Physical Exam - General Limitations: Altered Mental Status General appearance: alert, in no apparent distress - Head Head exam: Present: atraumatic, normocephalic - Eye Eye exam: Present: normal appearance - ENT ENT exam: Present: mucous membranes moist - Neck Neck exam: Present: normal inspection - Respiratory Respiratory exam: Present: normal lung sounds bilaterally. Absent: respiratory distress - Cardiovascular Cardiovascular Exam: Present: regular rate, normal rhythm. Absent: systolic murmur, diastolic murmur, rubs, gallop - GI/Abdominal GI/Abdominal exam: Present: soft, normal bowel sounds - Extremities Exam Extremities exam: Present: normal inspection - Back Exam Back exam: Present: normal inspection - Neurological Exam Neurological exam: Present: alert, oriented X3 - Psychiatric Psychiatric exam: Present: normal affect, normal mood - Skin Skin exam: Present: warm, dry, intact, normal color. Absent: rash ED Course Vital Signs 04/26/22 16:16 Temperature 98.9 F Pulse Rate 68 Respiratory 17 Rate Blood Pressure 111/63 [Left] O2 Sat by Pulse 99 Oximetry ED Medical Decision Making - Lab Data Result diagrams: 04/26/22 17:05 04/26/22 17:05 Lab Results 04/26/22 04/26/22 Range/Units 17:05 17:05 WBC 8.4 (4.5-11.0) K/mm3 RBC 3.69 (3.65-5.03) M/mm3 Hgb 10.0 L (10.1-14.3) gm/dl Hct 32.1 (30.3-42.9) % MCV 87 (79-97) fl MCH 27 L (28-32) pg MCHC 31 (30-34) % RDW 17.8 H (13.2-15.2) % Plt Count 225 (140-440) K/mm3 Lymph % (Auto) 8.3 L (13.4-35.0) % Ada % (Auto) 4.8 (0.0-7.3) % Eos % (Auto) 0.0 (0.0-4.3) % Baso % (Auto) 0.2 (0.0-1.8) % Lymph # (Auto) 0.7 L (1.2-5.4) K/mm3 Ada # (Auto) 0.4 (0.0-0.8) K/mm3 Eos # (Auto) 0.0 (0.0-0.4) K/mm3 Baso # (Auto) 0.0 (0.0-0.1) K/mm3 Seg Neutrophils % 86.7 H (40.0-70.0) % Seg Neutrophils # 7.3 (1.8-7.7) K/mm3 Sodium 133 L (137-145) mmol/L Potassium 4.5 D (3.6-5.0) mmol/L Chloride 92.2 L (98-107) mmol/L Carbon Dioxide 25 (22-30) mmol/L Anion Gap 20 mmol/L BUN 45 H (7-17) mg/dL Creatinine 5.6 H (0.6-1.2) mg/dL Estimated GFR 10 ml/min BUN/Creatinine Ratio 8 % Glucose 146 H (65-100) mg/dL Calcium 8.5 (8.4-10.2) mg/dL - Medical Decision Making Chief medical diagnosis: Hyperkalemia Differential medical diagnosis hyponatremia, chronic kidney disease I will get CBC BMP and I will reevaluate the patient. Patient has had multiple visits to the ER for similar complaints of weakness. She needs to follow-up with her primary care provider and go to her regularly scheduled dialysis. Critical care attestation.: If time is entered above; I have spent that time in minutes in the direct care of this critically ill patient, excluding procedure time. ED Disposition Clinical Impression: ESRD (end stage renal disease) on dialysis, Weakness Disposition: HOME / SELF CARE / HOMELESS Is pt being admited?: No Does the pt Need Aspirin: No Condition: Stable
[2022-04-26 17:20] LABS: Basophils % (Auto) 0.2 % (0.0-1.8); Hematocrit 32.1 % (30.3-42.9); Lymphocytes # (Auto) 0.7 K/mm3 (1.2-5.4); Lymphocytes % (Auto) 8.3 % (13.4-35.0); Mean Corpuscular HGB Conc 31 % (30-34); Mean Corpuscular Volume 87 fl (79-97); Monocytes # (Auto) 0.4 K/mm3 (0.0-0.8); Monocytes % (Auto) 4.8 % (0.0-7.3); Platelet Count 225 K/mm3 (140-440); Red Blood Count 3.69 M/mm3 (3.65-5.03); Red Cell Distribution Width 17.8 % (13.2-15.2)
[2022-04-26 17:42] LABS: Calcium 8.5 mg/dL (8.4-10.2)
== END 2022-04-26 21:00 | disposition home or self-care (01) ==
LOC: ED 16:07
DX: R53.1 Weakness (principal); I13.2 Hypertensive heart and chronic kidney disease with heart failure and with stage 5 chronic kidney disease, or end stage renal disease; E11.22 Type 2 diabetes mellitus with diabetic chronic kidney disease; N18.6 End stage renal disease; I50.9 Heart failure, unspecified; Z99.2 Dependence on renal dialysis; Z87.891 Personal history of nicotine dependence
CPT/HCPCS: 36415; 80048; 85025; 99283

== ENCOUNTER 2022-05-11 12:55 | Observation (INO) | payer MEDICARE ==
[2022-05-11 15:16] LABS: Basophils % (Auto) 0.2 % (0.0-1.8); Eosinophils % (Auto) 0.2 % (0.0-4.3); Hematocrit 35.3 % (30.3-42.9); Hemoglobin 11.3 gm/dl (10.1-14.3); Lymphocytes # (Auto) 0.9 K/mm3 (1.2-5.4); Lymphocytes % (Auto) 9.1 % (13.4-35.0); Mean Corpuscular HGB Conc 32 % (30-34); Mean Corpuscular Volume 86 fl (79-97); Monocytes # (Auto) 0.5 K/mm3 (0.0-0.8); Monocytes % (Auto) 5.3 % (0.0-7.3); Platelet Count 363 K/mm3 (140-440); Red Blood Count 4.11 M/mm3 (3.65-5.03); Red Cell Distribution Width 17.8 % (13.2-15.2)
[2022-05-11 15:37] LABS: Albumin 2.7 g/dL (3.9-5); Blood Urea Nitrogen 57 mg/dL (7-17); Calcium 8.5 mg/dL (8.4-10.2); Hemolysis Index 139
[2022-05-11 15:38] LABS: Alanine Aminotransferase < 5 units/L (7-56); BUN/Creatinine Ratio 9
[2022-05-11 15:50] LABS: Free T4 (Free Thyroxine) 1.29 ng/dL (0.76-1.46)
[2022-05-11] MEDS ORDERED: DEXTROSE 50% IN WATER (25GM) 50 ML SYRINGE IV ONE ×3 (15:56→16:05)
[2022-05-11] MEDS ORDERED: FUROSEMIDE 40 MG/4 ML INJ IV ONE (16:10)
[2022-05-11] MEDS ORDERED: SODIUM POLYSTYRENE 15 GM/60 ML ORAL LIQD PO ONE (16:15)
--- NOTE | 2022-05-11 16:15 | Emergency Department Report ---
ED Altered Mental Status HPI - General Chief Complaint: Altered Mental Status Stated Complaint: AMS Time Seen by Provider: 05/11/22 15:37 Source: family, EMS Mode of arrival: Stretcher Limitations: Altered Mental Status - History of Present Illness Initial Comments: 57-year-old female with past medical history of end-stage renal disease on dialysis Thursday, Thursday, Thursday, hypertension, [id number] diabetes, anemia presents to the hospital with complaints of alteration mental status. This morning patient woke up, ate, took her medications including glipizide and then took a nap. At 10:45 AM she woke up confused and altered and became unresponsive. EMS reports blood glucose was 50 upon their arrival. Patient received 200 mL of D10 with improvement of blood glucose over 100 upon arrival. At time of my evaluation patient has been in the ED for several hours. She is currently alert and responsive. Stat repeat blood glucose check reveals glucose of 27. Stat D50 2 Amps provided to patient. Daughter at the bedside states that patient was discharged from [place] 4 days ago on the . She was admitted for 1 week after presenting to dialysis center for decreased mental status, hypoglycemia, hypotension. During admission she had her first paracentesis and was treated for infected fluid in her abdomen. She was not discharged on any antibiotics. During that admission she also had to have a procedure performed on her AV dialysis access and had a temporary left femoral cath that has since been removed. Her last dialysis was Thursday just prior to discharge as she did not go to her Thursday (2 tasy ag0) dialysis because she was not feeling well. She currently denies shortness of breath, cough, abdominal pain, fever, and still has urine output. Java Sdet: Dr. Ibarra - Related Data Home Medications Medication Instructions Recorded Confirmed Last Taken Vitamin D2 1.25 mg PO 1XW 04/05/21 05/11/22 1 Day Ago ~05/10/22 Benzonatate [Tessalon Perles] 100 mg PO Q8HR 05/11/22 05/11/22 05/11/22 Losartan [Cozaar] 25 mg PO QDAY 05/11/22 05/11/22 05/11/22 Melatonin [Melatonin 3MG TAB] 3 mg PO QHS 05/11/22 05/11/22 1 Day Ago ~05/10/22 Sevelamer Carbonate [Renvela] 800 mg PO TIDWM 05/11/22 05/11/22 05/11/22 carvediloL [Coreg] 6.25 mg PO BID 05/11/22 05/11/22 05/11/22 Previous Rx's Medication Instructions Recorded Last Taken Type Metoprolol [Lopressor TAB] 25 mg PO BID #60 tablet 03/04/22 Unknown Rx Nifedipine ER 60 mg PO DAILY #30 03/04/22 1 Day Ago Rx ~05/10/22 Pantoprazole [Protonix TAB] 40 mg PO BIDAC #30 tablet 03/04/22 1 Day Ago Rx ~05/10/22 Allergies Allergy/AdvReac Type Severity Reaction Status Date / Time No Known Allergies Allergy Verified 05/11/22 13:03 ED Review of Systems ROS: Stated complaint: AMS Other details as noted in HPI Comment: All other systems reviewed and negative ED Past Medical Hx - Past Medical History Previous Medical History?: Yes Hx Hypertension: Yes Hx Congestive Heart Failure: Yes Hx Diabetes: Yes Hx Renal Disease: Yes (Dialysis) Additional medical history: anemia - Surgical History Additional Surgical History: , Left upper arm fistula - Social History Smoking Status: Unknown if ever smoked Substance Use Type: None - Medications Home Medications: Home Medications Medication Instructions Recorded Confirmed Last Taken Type Vitamin D2 1.25 mg PO 1XW 04/05/21 05/11/22 1 Day Ago History ~05/10/22 Metoprolol [Lopressor TAB] 25 mg PO BID #60 tablet 03/04/22 Unknown Rx Nifedipine ER 60 mg PO DAILY #30 03/04/22 05/11/22 1 Day Ago Rx ~05/10/22 Pantoprazole [Protonix TAB] 40 mg PO BIDAC #30 tablet 03/04/22 05/11/22 1 Day Ago Rx ~05/10/22 Benzonatate [Tessalon Perles] 100 mg PO Q8HR 05/11/22 05/11/22 05/11/22 History Losartan [Cozaar] 25 mg PO QDAY 05/11/22 05/11/22 05/11/22 History Melatonin [Melatonin 3MG TAB] 3 mg PO QHS 05/11/22 05/11/22 1 Day Ago History ~05/10/22 Sevelamer Carbonate [Renvela] 800 mg PO TIDWM 0705/11/22 05/11/22 History carvediloL [Coreg] 6.25 mg PO BID 05/11/22 05/11/22 05/11/22 History ED Physical Exam - General Limitations: Altered Mental Status - Other Other exam information: General: No acute distress Head: Atraumatic Eyes: normal appearance ENT: Moist mucous membranes Neck: Normal appearance, no midline tenderness Chest: Clear to auscultation bilaterally CV: Regular rate and rhythm Abdomen: Soft, normal bowel sounds, nontender, nondistended, no rebound or guarding Back: Normal inspection Extremity: Normal inspection, full range of motion Neuro: Alert O x 3, no facial asymmetry, speech clear, no gross motor sensory deficit Psych: Appropriate behavior Skin: No rash ED Course Vital Signs 05/11/22 05/11/22 05/11/22 13:00 13:31 13:46 Temperature Pulse Rate 133 H 89 84 Respiratory 17 15 Rate Blood Pressure 180/99 Blood Pressure 160/75 [Left] O2 Sat by Pulse 99 Oximetry 05/11/22 05/11/22 05/11/22 14:00 14:03 16:05 Temperature 97.9 F Pulse Rate 83 69 63 Respiratory 13 18 18 Rate Blood Pressure 182/98 160/70 Blood Pressure 104/45 [Left] O2 Sat by Pulse 99 97 96 Oximetry - Reevaluation(s) Reevaluation #1: 05/11/22 16:21 Nurse instructed to feed patient. Instructed not to provide when she was given elevated potassium. Repeat Accu-Cheks ordered - Consultations Consultation #1: 05/11/22 16:[address] Meyer semiconductor packages sealer covering for Dr. Ibarra. We will consult. Recommends Kayexalate. Agrees with Lasix Consultation #2: 05/11/22 16:21 Case discussed with hospitalist Dr. Ring. Recommend admission to telemetry and 1 mg of glucagon IV - Lab Data Result diagrams: 05/11/22 14:40 05/11/22 14:40 Lab Results 05/11/22 05/11/22 05/11/22 Range/Units 14:40 14:40 14:40 WBC 9.4 (4.5-11.0) K/mm3 RBC 4.11 (3.65-5.03) M/mm3 Hgb 11.3 (10.1-14.3) gm/dl Hct 35.3 (30.3-42.9) % MCV 86 (79-97) fl MCH 28 (28-32) pg MCHC 32 (30-34) % RDW 17.8 H (13.2-15.2) % Plt Count 363 (140-440) K/mm3 Lymph % (Auto) 9.1 L (13.4-35.0) % [place] % (Auto) 5.3 (0.0-7.3) % Eos % (Auto) 0.2 (0.0-4.3) % Baso % (Auto) 0.2 (0.0-1.8) % Lymph # (Auto) 0.9 L (1.2-5.4) K/mm3 [place] # (Auto) 0.5 (0.0-0.8) K/mm3 Eos # (Auto) 0.0 (0.0-0.4) K/mm3 Baso # (Auto) 0.0 (0.0-0.1) K/mm3 Seg Neutrophils % 85.2 H (40.0-70.0) % Seg Neutrophils # 8.0 H (1.8-7.7) K/mm3 Sodium 127 L (137-145) mmol/L Potassium 5.9 H (3.6-5.0) mmol/L Chloride 88.0 L (98-107) mmol/L Carbon Dioxide 26 (22-30) mmol/L Anion Gap 19 mmol/L BUN 57 H (7-17) mg/dL Creatinine 6.2 H (0.6-1.2) mg/dL Estimated GFR 8 ml/min BUN/Creatinine Ratio 9 % Glucose 52 L (65-100) mg/dL POC Glucose (70-105) mg/dL Calcium 8.5 (8.4-10.2) mg/dL Total Bilirubin 0.30 (0.1-1.2) mg/dL AST 14 (5-40) units/L ALT < 5 L (7-56) units/L Alkaline Phosphatase 88 (35-129) units/L Ammonia 43.0 (25-60) umol/L Total Protein 7.4 (6.3-8.2) g/dL Albumin 2.7 L (3.9-5) g/dL Albumin/Globulin Ratio 0.6 % TSH (0.270-4.200) mlU/mL Free T4 (0.76-1.46) ng/dL 05/11/22 05/11/22 05/11/22 Range/Units 14:40 16:15 16:45 WBC (4.5-11.0) K/mm3 RBC (3.65-5.03) M/mm3 Hgb (10.1-14.3) gm/dl Hct (30.3-42.9) % MCV (79-97) fl MCH (28-32) pg MCHC (30-34) % RDW (13.2-15.2) % Plt Count (140-440) K/mm3 Lymph % (Auto) (13.4-35.0) % [place] % (Auto) (0.0-7.3) % Eos % (Auto) (0.0-4.3) % Baso % (Auto) (0.0-1.8) % Lymph # (Auto) (1.2-5.4) K/mm3 [place] # (Auto) (0.0-0.8) K/mm3 Eos # (Auto) (0.0-0.4) K/mm3 Baso # (Auto) (0.0-0.1) K/mm3 Seg Neutrophils % (40.0-70.0) % Seg Neutrophils # (1.8-7.7) K/mm3 Sodium (137-145) mmol/L Potassium (3.6-5.0) mmol/L Chloride (98-107) mmol/L Carbon Dioxide (22-30) mmol/L Anion Gap mmol/L BUN (7-17) mg/dL Creatinine (0.6-1.2) mg/dL Estimated GFR ml/min BUN/Creatinine Ratio % Glucose (65-100) mg/dL POC Glucose 185 H 191 H (70-105) mg/dL Calcium (8.4-10.2) mg/dL Total Bilirubin (0.1-1.2) mg/dL AST (5-40) units/L ALT (7-56) units/L Alkaline Phosphatase (35-129) units/L Ammonia (25-60) umol/L Total Protein (6.3-8.2) g/dL Albumin (3.9-5) g/dL Albumin/Globulin Ratio % TSH 2.610 (0.270-4.200) mlU/mL Free T4 1.29 (0.76-1.46) ng/dL - EKG Data -: EKG Interpreted by Me EKG shows normal: sinus rhythm, ST-T waves (No ST elevation, no peaked T waves ) Rate: normal (67) - Medical Decision Making 57-year-old female presents to the hospital with altered mental status recurrent hypoglycemia. She is currently on glipizide/sulfonylurea. After repeat D50 x2 in the ED patient fed a snack. Close glucose monitoring ordered. IV glucagon ordered as per hospitalist recommendation. Kayexalate ordered as per semiconductor packages sealer recommendation. IV Lasix also ordered. Patient will be admitted to telemetry Critical Care Time: Yes Critical care time in (mins) excluding proc time.: 35 Critical care attestation.: If time is entered above; I have spent that time in minutes in the direct care of this critically ill patient, excluding procedure time. Critical Care Time: 35 Minutes of critical care time excluding procedures were used in the care of the patient. I discussed treatment plan with the nursing team members. I reviewed electronic record. I spoke with family to obtain medical history. Patient required multiple interventions and reassessments. Spoke with hospitalist and consultants for collaborative care ED Disposition Clinical Impression: Altered mental state, End stage renal disease on dialysis, Missed dialysis, Hypoglycemia secondary to sulfonylurea, Hyperkalemia Disposition: ADMITTED INPATIENT Is pt being admited?: Yes Condition: Stable Time of Disposition: 16:24 (Dr. Ring/hospitalist)
[2022-05-11] MEDS ORDERED: ONDANSETRON 4 MG/2 ML INJ IV ONE (16:21)
[2022-05-11] MEDS ORDERED: GLUCAGON (HUMAN RECOMBINANT) 1 MG/ML INJ IV ONE ×2 (16:21→18:25)
[2022-05-11] MEDS ORDERED: ACETAMINOPHEN 325 MG TAB PO PRN ×2 (16:24→18:22)
[2022-05-11] MEDS ORDERED: ONDANSETRON 4 MG/2 ML INJ IV PRN ×2 (16:24→18:22)
[2022-05-11] MEDS ORDERED: MORPHINE 2 MG/1 ML INJ IV PRN (16:25)
--- NOTE | 2022-05-11 16:40 | XRay Report ---
CHEST 1 VIEW 05/11/2022 4:26 PM INDICATION / CLINICAL INFORMATION: missed dialysis, ams, hypoglycemia. COMPARISON: 04/07/2022 FINDINGS: SUPPORT DEVICES: None. HEART / MEDIASTINUM: Enlarged, unchanged. LUNGS / PLEURA: There is a small to moderate right pleural effusion. Adjacent right basilar airspace disease is nonspecific but may be atelectatic. No pneumothorax. ADDITIONAL FINDINGS: Diffuse opacity over the included upper abdomen is likely due to ascites. IMPRESSION: 1. Given the presumed ascites, small to moderate right pleural effusion may be reactive. Similar find ings were noted on the prior chest radiographs from 04/07/2022. Right basilar airspace disease may be due to compressive atelectasis. Signer Name: Rafa Painting MD Signed: 05/11/2022 4:36 PM Workstation Name: [id number]
[2022-05-11] MEDS ORDERED: SODIUM CHLORIDE 0.9% 100 ML IV PRN (18:16)
[2022-05-11] MEDS ORDERED: HEPARIN 10,000 UNITS/10 ML VIAL IV PRN (18:16)
--- NOTE | 2022-05-11 18:16 | History and Physical Report ---
History of Present Illness Date of examination: 05/11/22 Date of admission: 05/11/2020 Chief complaint: Decreased responsiveness Low blood glucose levels History of present illness: 57-year-old female with past medical history of end-stage renal disease on dialysis Thursday, Thursday, Thursday, hypertension, eig-[id number] diabetes, anemia presents to the hospital with complaints of alteration mental status. This morning patient woke up, ate, took her medications including glipizide and then took a nap. At 10:45 AM she woke up confused and altered and became unresponsive. EMS reports blood glucose was 50 upon their arrival. Patient received 200 mL of D10 with improvement of blood glucose over 100 upon arrival. At time of my evaluation patient has been in the ED for several hours. She is currently alert and responsive. Stat repeat blood glucose check reveals glucose of 27. Stat D50 2 Amps provided to patient. Daughter at the bedside states that patient was discharged from [place] 4 days ago on the . She was admitted for 1 week after presenting to dialysis center for decreased mental status, hypoglycemia, hypotension. During admission she had her first paracentesis and was treated for infected fluid in her abdomen. She was not discharged on any antibiotics. During that admission she also had to have a procedure performed on her AV dialysis access and had a temporary left femoral cath that has since been removed. Her last dialysis was Thursday just prior to discharge as she did not go to her Thursday (2 tasy ag0) dialysis because she was not feeling well. She currently denies shortness of breath, cough, abdominal pain, fever, and still has urine output. Finance Business Manager: Dr. Ibarra - Past Medical History --Previous Medical History?: Yes --Hypertension: Yes --Congestive Heart Failure: Yes --Diabetes: Yes --Renal Disease: Yes (Dialysis) Additional medical history: anemia - Surgical History Additional Surgical History: , Left upper arm fistula - Social History Smoking Status: Unknown if ever smoked Substance Use Type: None - Medications Home Medications: Home Medications Medication Instructions Recorded Confirmed Last Taken Type Vitamin D2 1.25 mg PO 1XW 04/05/21 05/11/22 1 Day Ago History ~05/10/22 Metoprolol [Lopressor TAB] 25 mg PO BID #60 tablet 03/04/22 Unknown Rx Nifedipine ER 60 mg PO DAILY #30 03/04/22 05/11/22 1 Day Ago Rx ~05/10/22 Pantoprazole [Protonix TAB] 40 mg PO BIDAC #30 tablet 03/04/22 05/11/22 1 Day Ago Rx ~05/10/22 Benzonatate [Tessalon Perles] 100 mg PO Q8HR 05/11/22 05/11/22 05/11/22 History Losartan [Cozaar] 25 mg PO QDAY 05/11/22 05/11/22 05/11/22 History Melatonin [Melatonin 3MG TAB] 3 mg PO QHS 05/11/22 05/11/22 1 Day Ago History ~05/10/22 Sevelamer Carbonate [Renvela] 800 mg PO TIDWM 05/11/22 05/11/22 05/11/22 History carvediloL [Coreg] 6.25 mg PO BID 05/11/22 05/11/22 05/11/22 History Review of Systems ROS: Stated complaint: AMS Other details as noted in HPI Comment: All other systems reviewed and negative Medications and Allergies Allergies Allergy/AdvReac Type Severity Reaction Status Date / Time No Known Allergies Allergy Verified 05/11/22 13:03 Home Medications Medication Instructions Recorded Confirmed Last Taken Type Vitamin D2 1.25 mg PO 1XW 04/05/21 05/11/22 1 Day Ago History ~05/10/22 Metoprolol [Lopressor TAB] 25 mg PO BID #60 tablet 03/04/22 Unknown Rx Nifedipine ER 60 mg PO DAILY #30 03/04/22 05/11/22 1 Day Ago Rx ~05/10/22 Pantoprazole [Protonix TAB] 40 mg PO BIDAC #30 tablet 03/04/22 05/11/22 1 Day Ago Rx ~05/10/22 Benzonatate [Tessalon Perles] 100 mg PO Q8HR 05/11/22 05/11/22 05/11/22 History Losartan [Cozaar] 25 mg PO QDAY 05/11/22 05/11/22 05/11/22 History Melatonin [Melatonin 3MG TAB] 3 mg PO QHS 05/11/22 05/11/22 1 Day Ago History ~05/10/22 Sevelamer Carbonate [Renvela] 800 mg PO TIDWM 05/11/22 05/11/22 05/11/22 History carvediloL [Coreg] 6.25 mg PO BID 05/11/22 05/11/22 05/11/22 History Active Meds: Active Medications Acetaminophen (Acetaminophen 325 Mg Tab) 650 mg PO Q4H PRN PRN Reason: Pain MILD(1-3)/Fever >100.5/JAMA Morphine Sulfate (Morphine 2 Mg/1 Ml Inj) 2 mg IV Q4H PRN PRN Reason: Pain, Moderate (4-6) Ondansetron HCl (Ondansetron 4 Mg/2 Ml Inj) 4 mg IV Q8H PRN PRN Reason: Nausea And Vomiting Sodium Chloride (Sodium Chloride 0.9% 10 Ml Flush Syringe) 10 ml IV BID PETE Sodium Chloride (Sodium Chloride 0.9% 10 Ml Flush Syringe) 10 ml IV PRN PRN PRN Reason: LINE FLUSH Exam - Constitutional Vitals: Temp Pulse Resp BP Pulse Ox 97.9 F 63 18 104/45 96 05/11/22 14:03 05/11/22 16:05 05/11/22 16:05 05/11/22 16:05 05/11/22 16:05 Results - Labs CBC & Chem 7: 05/12/22 05:31 05/12/22 05:31 Labs: Laboratory Last Values WBC 9.4 K/mm3 (4.5-11.0) 05/11/22 14:40 RBC 4.11 M/mm3 (3.65-5.03) 05/11/22 14:40 Hgb 11.3 gm/dl (10.1-14.3) 05/11/22 14:40 Hct 35.3 % (30.3-42.9) 05/11/22 14:40 MCV 86 fl (79-97) 05/11/22 14:40 MCH 28 pg (28-32) 05/11/22 14:40 MCHC 32 % (30-34) 05/11/22 14:40 RDW 17.8 % (13.2-15.2) H 05/11/22 14:40 Plt Count 363 K/mm3 (140-440) 05/11/22 14:40 Lymph % (Auto) 9.1 % (13.4-35.0) L 05/11/22 14:40 [place] % (Auto) 5.3 % (0.0-7.3) 05/11/22 14:40 Eos % (Auto) 0.2 % (0.0-4.3) 05/11/22 14:40 Baso % (Auto) 0.2 % (0.0-1.8) 05/11/22 14:40 Lymph # (Auto) 0.9 K/mm3 (1.2-5.4) L 05/11/22 14:40 [place] # (Auto) 0.5 K/mm3 (0.0-0.8) 05/11/22 14:40 Eos # (Auto) 0.0 K/mm3 (0.0-0.4) 05/11/22 14:40 Baso # (Auto) 0.0 K/mm3 (0.0-0.1) 05/11/22 14:40 Seg Neutrophils % 85.2 % (40.0-70.0) H 05/11/22 14:40 Seg Neutrophils # 8.0 K/mm3 (1.8-7.7) H 05/11/22 14:40 Sodium 127 mmol/L (137-145) L 05/11/22 14:40 Potassium 5.9 mmol/L (3.6-5.0) H 05/11/22 14:40 Chloride 88.0 mmol/L (98-107) L 05/11/22 14:40 Carbon Dioxide 26 mmol/L (22-30) 05/11/22 14:40 Anion Gap 19 mmol/L 05/11/22 14:40 BUN 57 mg/dL (7-17) H 05/11/22 14:40 Creatinine 6.2 mg/dL (0.6-1.2) H 05/11/22 14:40 Estimated GFR 8 ml/min 05/11/22 14:40 BUN/Creatinine Ratio 9 % 05/11/22 14:40 Glucose 52 mg/dL (65-100) L 05/11/22 14:40 POC Glucose 136 mg/dL (70-105) H 05/11/22 17:42 Calcium 8.5 mg/dL (8.4-10.2) 05/11/22 14:40 Total Bilirubin 0.30 mg/dL (0.1-1.2) 05/11/22 14:40 AST 14 units/L (5-40) 05/11/22 14:40 ALT < 5 units/L (7-56) L 05/11/22 14:40 Alkaline Phosphatase 88 units/L (35-129) 05/11/22 14:40 Ammonia 43.0 umol/L (25-60) 05/11/22 14:40 Total Protein 7.4 g/dL (6.3-8.2) 05/11/22 14:40 Albumin 2.7 g/dL (3.9-5) L 05/11/22 14:40 Albumin/Globulin Ratio 0.6 % 05/11/22 14:40 TSH 2.610 mlU/mL (0.270-4.200) 05/11/22 14:40 Free T4 1.29 ng/dL (0.76-1.46) 05/11/22 14:40 Short CBC 05/11/22 05/12/22 Range/Units 14:40 05:31 WBC 9.4 9.4 (4.5-11.0) K/mm3 Hgb 11.3 9.6 L (10.1-14.3) gm/dl Hct 35.3 30.7 (30.3-42.9) % Plt Count 363 314 (140-440) K/mm3 BMP 05/11/22 05/12/22 14:40 05:31 Sodium 127 L 129 L Potassium 5.9 H 5.3 H Chloride 88.0 L 90.6 L Carbon Dioxide 26 24 BUN 57 H 63 H Creatinine 6.2 H 6.6 H Glucose 52 L 92 Calcium 8.5 8.2 L Liver Function 05/11/22 05/12/22 Range/Units 14:40 05:31 Total Bilirubin 0.30 0.20 (0.1-1.2) mg/dL AST 14 8 (5-40) units/L ALT < 5 L < 5 L (7-56) units/L Alkaline Phosphatase 88 104 (35-129) units/L Albumin 2.7 L 2.8 L (3.9-5) g/dL Assessment and Plan Advance Directives: Yes (Full code) VTE prophylaxis?: Chemical Plan of care discussed with patient/family: Yes - Patient Problems (1) Acute metabolic encephalopathy Current Visit: Yes Status: Acute Plan to address problem: Secondary to hypoglycemia Stopped oral hypoglycemics Discharged without oral hypoglycemics especially glipizide (2) ESRD (end stage renal disease) on dialysis Current Visit: Yes Status: Acute (3) Hypoglycemia Current Visit: Yes Status: Acute Plan to address problem: We will stop the oral hypoglycemics Being in end-stage renal disease she does not need oral hypoglycemics I would rather start her on low-dose long-acting insulin--- Lantus 10 units at nighttime (4) Hypertension Current Visit: No Status: Chronic Qualifiers: Hypertension type: primary hypertension Qualified Code(s): I10 - Essential (primary) hypertension Plan to address problem: Continue antihypertensive (5) End stage renal disease on dialysis Current Visit: Yes Status: Chronic Plan to address problem: Continue hemodialysis as per schedule (6) DVT prophylaxis Current Visit: No Status: Acute Plan to address problem: On heparin and GI prophylaxis (7) Advance care planning Current Visit: Yes Status: Acute Plan to address problem: Disease education conducted, care plan discussed, diagnosis discussed, prognosis discussed, patient acknowledges understanding and agrees with care plan. +30 minutes.
[2022-05-11] MEDS ORDERED: NIFEDIPINE PO SCH (18:30)
[2022-05-11] MEDS ORDERED: VITAMIN D2 PO SCH (18:30)
[2022-05-11] MEDS: NIFEdipine XL 60 MG TAB PO SCH (19:30)
[2022-05-11] MEDS ORDERED: NON-FORMULARY EACH (Melatonin [Melatonin 3mg Tab] 3 MG Tablet) PO SCH (22:00)
[2022-05-11] MEDS ORDERED: MELATONIN 5 MG TAB PO SCH (22:00)
[2022-05-11] MEDS: LOSARTAN 25 MG TAB PO SCH (22:23)
[2022-05-12 05:44] LABS: Basophils % (Auto) 0.3 % (0.0-1.8); Eosinophils % (Auto) 0.5 % (0.0-4.3); Hematocrit 30.7 % (30.3-42.9); Hemoglobin 9.6 gm/dl (10.1-14.3); Lymphocytes # (Auto) 0.7 K/mm3 (1.2-5.4); Mean Corpuscular HGB Conc 31 % (30-34); Mean Corpuscular Volume 87 fl (79-97); Monocytes # (Auto) 0.5 K/mm3 (0.0-0.8); Monocytes % (Auto) 5.8 % (0.0-7.3); Platelet Count 314 K/mm3 (140-440); Red Blood Count 3.53 M/mm3 (3.65-5.03); Red Cell Distribution Width 17.8 % (13.2-15.2)
[2022-05-12 06:05] LABS: Albumin 2.8 g/dL (3.9-5); Blood Urea Nitrogen 63 mg/dL (7-17); Calcium 8.2 mg/dL (8.4-10.2); Hemolysis Index 13
[2022-05-12 06:08] LABS: Alanine Aminotransferase < 5 units/L (7-56); BUN/Creatinine Ratio 10
[2022-05-12] MEDS: BENZONATATE 100 MG CAP PO SCH ×3 (06:21→17:50)
[2022-05-12] MEDS: carvediloL 6.25 MG TAB PO SCH ×2 (06:21→10:58)
[2022-05-12] MEDS: METOPROLOL TARTRATE 25 MG TAB PO SCH ×2 (06:21→17:50)
[2022-05-12] MEDS: PANTOPRAZOLE 40 MG TAB PO SCH ×2 (10:58→17:46)
[2022-05-12] MEDS: LOSARTAN 25 MG TAB PO SCH (10:58)
[2022-05-12] MEDS: SEVELAMER CARBONATE 800 MG TAB PO SCH ×3 (10:58→17:47)
--- NOTE | 2022-05-12 13:02 | Consultation ---
History of Present Illness - Reason for Consult Consult date: 05/12/22 end stage renal disease, hyperkalemia - History of Present Illness The patient is a 57 YO female with history notable for Hypertension, DM-2, CHF and ESRD on hemodialysis (MWF) who presented to [facility] Ed 05/11/22 with AMS/hypogl ycemia. Patient woke up confused and altered, later became unresponsive. EMS reports blood glucose was 50 upon their arrival. Patient received 200 mL of D10 with improvement of blood glucose over 100 upon arrival. In the ED bl sugar dropped to 27. 2 Amps of D50 was given. Daughter at the bedside states that patient was admitted to [facility] between 04/28 and 05/07 with decreased mental status, hypoglycemia, hypotension. During admission she had her first paracentesis and was treated for infected fluid in her abdomen. She was not discharged on any antibiotics. During that admission she also had to have a procedure performed on her AV dialysis access and had a temporary left femoral cath that has since been removed. Her last dialysis was Thursday just prior to discharge as she did not go to her Thursday (2 tasy ago) dialysis because she was not feeling well. She currently denies shortness of breath, cough, N, V, D, abdominal pain, fever, chills, dizziness or syncope. Labs and imaging results noted. Nephrology consulted for ESRD management. Past History Past Medical History: other (See HPI.) Medications and Allergies Allergies Allergy/AdvReac Type Severity Reaction Status Date / Time No Known Allergies Allergy Verified 05/11/22 13:03 Home Medications Medication Instructions Recorded Confirmed Last Taken Type Vitamin D2 1.25 mg PO 1XW 04/05/21 05/11/22 1 Day Ago History ~05/10/22 Nifedipine ER 60 mg PO DAILY #30 03/04/22 05/11/22 1 Day Ago Rx ~05/10/22 Pantoprazole [Protonix TAB] 40 mg PO BIDAC #30 tablet 03/04/22 05/11/22 1 Day Ago Rx ~05/10/22 Losartan [Cozaar] 25 mg PO QDAY 05/11/22 05/11/22 05/11/22 History Melatonin [Melatonin 3MG TAB] 3 mg PO QHS 05/11/22 05/11/22 1 Day Ago History ~05/10/22 carvediloL [Coreg] 6.25 mg PO BID 05/11/22 05/11/22 05/11/22 History Benzonatate [Tessalon Perles] 100 mg PO Q8HR capsule 05/12/22 Unknown Rx Losartan [Cozaar] 25 mg PO QDAY tablet 05/12/22 Unknown Rx Metoprolol [Lopressor TAB] 25 mg PO BID tablet 05/12/22 Unknown Rx NIFEdipine XL [Procardia Xl] 60 mg PO QDAY tablet 05/12/22 Unknown Rx Sevelamer Carbonate [Renvela] 800 mg PO TIDWM tablet 05/12/22 Unknown Rx Active Meds: Active Medications Acetaminophen (Acetaminophen 325 Mg Tab) 650 mg PO Q4H PRN PRN Reason: Pain MILD(1-3)/Fever >100.5/JAMA Benzonatate (Benzonatate 100 Mg Cap) 100 mg PO Q8HR FORMERLY [facility], [facility]1983 Last Admin: 05/12/22 06:26 Dose: 100 mg Carvedilol (Carvedilol 6.25 Mg Tab) 6.25 mg PO BID [facility], [facility]1983 Last Admin: 05/12/22 10:58 Dose: Not Given Ergocalciferol (Ergocalciferol (Vit D2) 50,000 Unit Cap) 50,000 unit PO [facility] Heparin Sodium (Porcine) (Heparin 10,000 Units/10 Ml Vial) 3,000 unit IV AICHA PRN PRN Reason: hemodialysis Sodium Chloride (Nacl 0.9%) 100 mls @ 999 mls/hr IV AICHA PRN PRN Reason: Hypotension Losartan Potassium (Losartan 25 Mg Tab) 25 mg PO QDAY FOR[facility], [facility]1983 Last Admin: 05/12/22 10:58 Dose: Not Given Melatonin (Melatonin 5 Mg Tab) 5 mg PO QHS FOR[facility]LY [facility], [facility] Last Admin: 05/12/22 06:21 Dose: Not Given Metoprolol Tartrate (Metoprolol Tartrate 25 Mg Tab) 25 mg PO BID [facility], [facility]1983 Last Admin: 05/12/22 06:21 Dose: Not Given Morphine Sulfate (Morphine 2 Mg/1 Ml Inj) 2 mg IV Q4H PRN PRN Reason: Pain, Moderate (4-6) Nifedipine (Nifedipine Xl 60 Mg Tab) 60 mg PO QDAY FOR[facility], [facility] Last Admin: 05/11/22 19:30 Dose: 60 mg Ondansetron HCl (Ondansetron 4 Mg/2 Ml Inj) 4 mg IV Q8H PRN PRN Reason: Nausea And Vomiting Ondansetron HCl (Ondansetron 4 Mg/2 Ml Inj) 4 mg IV Q8H PRN PRN Reason: Nausea And Vomiting Pantoprazole Sodium (Pantoprazole 40 Mg Tab) 40 mg PO BIDAC [facility], [facility] Last Admin: 05/12/22 10:58 Dose: 40 mg Sevelamer Carbonate (Sevelamer Carbonate 800 Mg Tab) 800 mg PO TIDWM FOR[facility], [facility] Last Admin: 05/12/22 10:58 Dose: 800 mg Sodium Chloride (Sodium Chloride 0.9% 10 Ml Flush Syringe) 10 ml IV BID [facility], [facility] Last Admin: 05/12/22 06:21 Dose: Not Given Sodium Chloride (Sodium Chloride 0.9% 10 Ml Flush Syringe) 10 ml IV PRN PRN PRN Reason: LINE FLUSH Review of Systems All systems: negative Exam - Vital Signs Vital signs: Vital Signs Pulse BP 133 H 160/75 05/11/22 13:00 05/11/22 13:00 Results - Lab Results 05/12/22 05:31 05/12/22 05:31 Most recent lab results Calcium 8.2 mg/dL (8.4-10.2) L 05/12/22 05:31 Assessment and Plan 1. ESRD: Patient is on amintenance hemodialysis, MWF schedule. Last HD 05/07. Has L arm AVF / AVG. Meds dosage based on GFR. Hemodialysis: 05/12. 2. FEN: Volume overload, UF with HD tolerated. Counseled to limit salt and fluid intake. Strict renal diet. Binders as needed. Monitor lytes and volume status. 3. DM with hypoglycemia: Monitor bl glu. 4. HTN: Volume control thru HD. Advised to limit salt and fluid intake. Monitor BP. 5. H/o CHF: Lasix, strict I/Os, limit sodium & fluid intake. Volume control thru HD. Followed by Cards. 6. H/o Ascites: Recent paracentes at OSH. Subjective: Patient was seen and examined at the bedside. Daughter at the bedside. General Appearance: General appearance: well-developed, appears stated age, no distress EENT: ATNC, MARIBEL, hearing intact, vision intact Neck: neck supple, trachea midline Respiratory: ctab Heart: regular, S1S2, no murmur Abdomen: soft, NT, ascites noted, BS heard Integumentary: no obvious rash Neurologic: AO, conversing, able to move extremities Ext: 1+ LE edema Hemodialysis access: L arm AVF / AVG
--- NOTE | 2022-05-12 13:32 | Electrocardiograph Report ---
[facility] Test Date: 2022-05-11 Test Time: 17:12:06 Pat Name: KVNG HAILE Department: Room: A474 1 Gender: F Loan Associate: IZABEL : 1965 Requested By: ANJALI ROMAN Order Number: [id number] Reading MD: Leon Beck Measurements Intervals [place] Rate: 67 P: 42 IA: 135 QRS: -11 QRSD: 90 T: -3 QT: 419 QTc: 443 Interpretive Statements Sinus rhythm Borderline T abnormalities, diffuse leads Compared to ECG 04/07/2022 16:08:40 Ventricular premature complex(es) no longer present T-wave abnormality still present Electronically Signed On 05-12-2022 13:31:51 EDT by Leon Beck
[2022-05-12 13:58] LABS: Hepatitis B Surface Antigen Non-Reactive (Negative); Hepatitis C Virus Antibody Non-Reactive (NonReactive)
[2022-05-12 15:27] LABS: Bacteria,Urine 1+ /HPF (Negative); Mucus,Urine FEW /HPF
[2022-05-12 15:52] LABS: Bilirubin,Urine Negative (Negative); Blood,Urine Negative (Negative); Color,Urine Yellow (Yellow); PH,Urine 7.5 (5.0-7.0); Urobilinogen,Urine < 2.0 mg/dL (<2.0)
[2022-05-12] MEDS: NIFEdipine XL 60 MG TAB PO SCH (17:47)
--- NOTE | 2022-05-12 18:01 | Discharge Summary ---
Providers - Providers Date of Admission: 05/11/22 16:24 Date of discharge: 05/12/22 Attending physician: RICARDO RUEDA 05/11/22 16:15 Consult to Physician [CONS] Urgent Comment: Consulting Provider: SOFYA BROWN Physician Instructions: Reason For Exam: End-stage renal disease on dialysis Primary care physician: MARILYN GUZMAN Hospitalization Condition: Stable - Discharge Diagnoses (1) Acute metabolic encephalopathy Status: Acute (2) ESRD (end stage renal disease) on dialysis Status: Acute (3) Hypoglycemia Status: Acute (4) Hypertension Status: Chronic Qualifiers: Hypertension type: primary hypertension Qualified Code(s): I10 - Essential (primary) hypertension (5) End stage renal disease on dialysis Status: Chronic (6) DVT prophylaxis Status: Acute (7) Advance care planning Status: Acute Core Measure Documentation - Palliative Care Palliative Care/ Comfort Measures: Not Applicable Exam - Constitutional Vitals: Temp Pulse Resp BP Pulse Ox 98.2 F 87 18 156/77 94 05/12/22 16:37 05/12/22 16:37 05/12/22 16:37 05/12/22 16:37 05/12/22 16:37 Plan Follow up with: MARILYN GUZMAN MD [Primary Care Provider] - 7 Days
[2022-05-12 18:48] VITALS: BP 157/92
[2022-05-17] MEDS ORDERED: ERGOCALCIFEROL (VIT D2) 50,000 UNIT CAP PO SCH (10:00)
== END 2022-05-12 18:45 | disposition home or self-care (01) ==
LOC: ED 12:55 → INTOOBSV 16:24 → 4A 16:24
PROVIDERS: ADMIT Internal Medicine; ATTEND Internal Medicine
DX: G93.41 Metabolic encephalopathy (principal); E87.70 Fluid overload, unspecified; I13.2 Hypertensive heart and chronic kidney disease with heart failure and with stage 5 chronic kidney disease, or end stage renal disease; I50.9 Heart failure, unspecified; N18.6 End stage renal disease; D63.1 Anemia in chronic kidney disease; E87.5 Hyperkalemia; T38.3X1A Poisoning by insulin and oral hypoglycemic [antidiabetic] drugs, accidental (unintentional), initial encounter; R41.82 Altered mental status, unspecified; R87.5 Abnormal microbiological findings in specimens from female genital organs; E16.2 Hypoglycemia, unspecified; Z99.2 Dependence on renal dialysis; Z98.891 History of uterine scar from previous surgery
CPT/HCPCS: 36415; 71045; 80053; 80074; 81001; 82140; 82962; 84439; 84443; 85025; 87086; 93005; 96374; 99291; G0378; J3490

== ENCOUNTER 2022-07-25 15:10 | Inpatient (IN) | payer MEDICARE ==
[2022-07-25] MEDS ORDERED: ASPIRIN 325 MG TAB PO ONE (15:55)
[2022-07-25 16:34] LABS: Basophils # (Auto) 0.2 K/mm3 (0.0-0.1); Basophils % (Auto) 1.7 % (0.0-1.8); Eosinophils # (Auto) 0.1 K/mm3 (0.0-0.4); Eosinophils % (Auto) 1.5 % (0.0-4.3); Hematocrit 37.7 % (30.3-42.9); Hemoglobin 11.9 gm/dl (10.1-14.3); Lymphocytes # (Auto) 0.6 K/mm3 (1.2-5.4); Lymphocytes % (Auto) 6.4 % (13.4-35.0); Mean Corpuscular HGB Conc 32 % (30-34); Mean Corpuscular Volume 86 fl (79-97); Monocytes # (Auto) 0.4 K/mm3 (0.0-0.8); Monocytes % (Auto) 3.8 % (0.0-7.3); Platelet Count 285 K/mm3 (140-440); Red Blood Count 4.39 M/mm3 (3.65-5.03); Red Cell Distribution Width 16.5 % (13.2-15.2)
[2022-07-25 16:54] LABS: Albumin 3.1 g/dL (3.9-5); Blood Urea Nitrogen 83 mg/dL (7-17); Calcium 8.9 mg/dL (8.4-10.2); Hemolysis Index 29
[2022-07-25 17:07] LABS: Chol/HDL Ratio 1.69 %; HDL Cholesterol 78 mg/dL (40-59); LDL Cholesterol,Direct 51 mg/dL (50-130)
[2022-07-25 17:12] LABS: Alanine Aminotransferase < 5 units/L (7-56); BUN/Creatinine Ratio 9
--- NOTE | 2022-07-25 17:23 | XRay Report ---
CHEST 1 VIEW 07/25/2022 4:16 PM INDICATION / CLINICAL INFORMATION: chest pain. COMPARISON: 05/11/22 FINDINGS: SUPPORT DEVICES: None. HEART / MEDIASTINUM: Heart is enlarged but stable. LUNGS / PLEURA: Moderate right basilar pleural-parenchymal density with moderate effusion is unchange d. No pneumothorax. ADDITIONAL FINDINGS: No significant additional findings. IMPRESSION: 1. Moderate right pleural effusion with right lung base density without significant change. Signer Name: Sherwin Yan MD Signed: 07/25/2022 5:18 PM Workstation Name: [id number]
--- NOTE | 2022-07-25 17:49 | Emergency Department Report ---
ED Chest Pain HPI - General Chief Complaint: Chest Pain Stated Complaint: MISSED DIALYSIS/CHEST PAIN Time Seen by Provider: 07/25/22 17:09 Source: patient, EMS Mode of arrival: Stretcher Limitations: No Limitations - History of Present Illness Initial Comments: 57-year-old female with a past medical history of end-stage renal disease Thursday, Thursday, Thursday, right pleural effusion, ascites, and hypertension presents to the hospital complaining of shortness of breath and chest pain. Patient has missed her last 5 dialysis sessions because of nausea, vomiting, and diarrhea. Patient was afraid that she will have to go to the bathroom during her dialysis session. Patient also experiencing a cough productive of yellow- green sputum since last week as well. Today she woke up this morning with right sided sharp chest pain that has been intermittent throughout the day. Pain improved after receiving aspirin in route to the hospital. She also complains of worsening shortness of breath, orthopnea, PND, and worsening abdominal distention. Patient has a previous history of diabetes but her diabetes medication has since been discontinued due to recurrent hypoglycemic episodes Her tetryl screen operator is Dr. Ibarra Room air saturation 94 to 96% Severity scale (0 -10): 8 - Related Data Home Medications Medication Instructions Recorded Confirmed Last Taken Vitamin D2 1.25 mg PO 1XW 04/05/21 05/11/22 1 Day Ago ~05/10/22 Losartan [Cozaar] 25 mg PO QDAY 05/11/22 05/11/22 05/11/22 Melatonin [Melatonin 3MG TAB] 3 mg PO QHS 05/11/22 05/11/22 1 Day Ago ~05/10/22 carvediloL [Coreg] 6.25 mg PO BID 05/11/22 05/11/22 05/11/22 Previous Rx's Medication Instructions Recorded Last Taken Type Nifedipine ER 60 mg PO DAILY #30 03/04/22 1 Day Ago Rx ~05/10/22 Pantoprazole [Protonix TAB] 40 mg PO BIDAC #30 tablet 03/04/22 1 Day Ago Rx ~05/10/22 Benzonatate [Tessalon Perles] 100 mg PO Q8HR capsule 05/12/22 Unknown Rx Losartan [Cozaar] 25 mg PO QDAY tablet 05/12/22 Unknown Rx Metoprolol [Lopressor TAB] 25 mg PO BID tablet 05/12/22 Unknown Rx NIFEdipine XL [Procardia Xl] 60 mg PO QDAY tablet 05/12/22 Unknown Rx Sevelamer Carbonate [Renvela] 800 mg PO TIDWM tablet 05/12/22 Unknown Rx Allergies Allergy/AdvReac Type Severity Reaction Status Date / Time No Known Allergies Allergy Verified 05/11/22 13:03 Heart Score - HEART Score History: Slightly suspicious EKG: Non-specific Age: 45-65 Risk factors: > 3 risk factors or hx of atherosclerotic disease Troponin: 1-3x normal limit HEART Score: 5 - EKG Read Time Time EKG Completed: 17:37 EKG Read Time: 17:45 ED Review of Systems ROS: Stated complaint: MISSED DIALYSIS/CHEST PAIN Other details as noted in HPI Comment: All other systems reviewed and negative ED Past Medical Hx - Past Medical History Hx Hypertension: Yes Hx Congestive Heart Failure: Yes Hx Diabetes: Yes Hx GERD: Yes Hx Renal Disease: Yes (Dialysis) Additional medical history: anemia - Surgical History Additional Surgical History: , Left upper arm fistula - Social History Smoking Status: Never Smoker - Medications Home Medications: Home Medications Medication Instructions Recorded Confirmed Last Taken Type Vitamin D2 1.25 mg PO 1XW 04/05/21 05/11/22 1 Day Ago History ~05/10/22 Nifedipine ER 60 mg PO DAILY #30 03/04/22 05/11/22 1 Day Ago Rx ~05/10/22 Pantoprazole [Protonix TAB] 40 mg PO BIDAC #30 tablet 03/04/22 05/11/22 1 Day Ago Rx ~05/10/22 Losartan [Cozaar] 25 mg PO QDAY 05/11/22 05/11/22 05/11/22 History Melatonin [Melatonin 3MG TAB] 3 mg PO QHS 05/11/22 05/11/22 1 Day Ago History ~05/10/22 carvediloL [Coreg] 6.25 mg PO BID 05/11/22 05/11/22 05/11/22 History Benzonatate [Tessalon Perles] 100 mg PO Q8HR capsule 05/12/22 Unknown Rx Losartan [Cozaar] 25 mg PO QDAY tablet 05/12/22 Unknown Rx Metoprolol [Lopressor TAB] 25 mg PO BID tablet 05/12/22 Unknown Rx NIFEdipine XL [Procardia Xl] 60 mg PO QDAY tablet 05/12/22 Unknown Rx Sevelamer Carbonate [Renvela] 800 mg PO TIDWM tablet 05/12/22 Unknown Rx ED Physical Exam - General Limitations: No Limitations - Other Other exam information: General: No acute distress Head: Atraumatic Eyes: normal appearance ENT: Moist mucous membranes Neck: Normal appearance, no midline tenderness Chest: Diminished bilateral breath sounds CV: Regular rate and rhythm Abdomen: Abdominal distention with ascites and abdominal wall edema. Nontender Back: Normal inspection Extremity: 1+ bilateral lower extremity edema Neuro: Alert O x 3, no facial asymmetry, speech clear, no gross motor sensory d eficit Psych: Appropriate behavior Skin: No rash ED Course Vital Signs 07/25/22 07/25/22 07/25/22 15:21 19:25 21:57 Temperature 97.6 F 97.8 F Pulse Rate 88 87 90 Respiratory 18 15 Rate Blood Pressure 176/90 Blood Pressure 176/89 217/97 [Left] O2 Sat by Pulse 100 94 Oximetry DIONTE score - Dionte Score Age > 65: (0) No Aspirin use within the Past 7 Days: (0) No 3 or more CAD Risk Factors: (1) Yes 2 or more Angina events in past 24 hrs: (1) Yes Known CAD with more than 50% Stenosis: (0) No Elevated Cardiac Markers: (1) Yes ST Deviation Greater than 0.5mm: (0) No DIONTE Score: 3 ED Medical Decision Making - Lab Data Result diagrams: 07/25/22 16:11 07/25/22 16:11 Lab Results 07/25/22 07/25/22 Range/Units 16:11 16:11 WBC 10.0 (4.5-11.0) K/mm3 RBC 4.39 (3.65-5.03) M/mm3 Hgb 11.9 (10.1-14.3) gm/dl Hct 37.7 (30.3-42.9) % MCV 86 (79-97) fl MCH 27 L (28-32) pg MCHC 32 (30-34) % RDW 16.5 H (13.2-15.2) % Plt Count 285 (140-440) K/mm3 Lymph % (Auto) 6.4 L (13.4-35.0) % [place] % (Auto) 3.8 (0.0-7.3) % Eos % (Auto) 1.5 (0.0-4.3) % Baso % (Auto) 1.7 (0.0-1.8) % Lymph # (Auto) 0.6 L (1.2-5.4) K/mm3 [place] # (Auto) 0.4 (0.0-0.8) K/mm3 Eos # (Auto) 0.1 (0.0-0.4) K/mm3 Baso # (Auto) 0.2 H (0.0-0.1) K/mm3 Seg Neutrophils % 86.6 H (40.0-70.0) % Seg Neutrophils # 8.7 H (1.8-7.7) K/mm3 Sodium 135 L (137-145) mmol/L Potassium 4.9 (3.6-5.0) mmol/L Chloride 94.3 L (98-107) mmol/L Carbon Dioxide 19 L (22-30) mmol/L Anion Gap 27 mmol/L BUN 83 H (7-17) mg/dL Creatinine 9.2 H (0.6-1.2) mg/dL Estimated GFR 5 ml/min BUN/Creatinine Ratio 9 % Glucose 143 H (65-100) mg/dL Calcium 8.9 (8.4-10.2) mg/dL Total Bilirubin 0.20 (0.1-1.2) mg/dL AST 7 (5-40) units/L ALT < 5 L (7-56) units/L Alkaline Phosphatase 91 (35-129) units/L Troponin T 0.062 H (0.00-0.029) ng/mL Total Protein 7.8 (6.3-8.2) g/dL Albumin 3.1 L (3.9-5) g/dL Albumin/Globulin Ratio 0.7 % Triglycerides 81 (2-149) mg/dL Cholesterol 132 (50-199) mg/dL LDL Cholesterol Direct 51 (50-130) mg/dL HDL Cholesterol 78 H (40-59) mg/dL Cholesterol/HDL Ratio 1.69 % - EKG Data -: EKG Interpreted by Me (Anterior septal infarct) EKG shows normal: sinus rhythm, ST-T waves (No STEMI) Rate: normal (85) - Radiology Data Radiology results: report reviewed CHEST 1 VIEW 07/25/2022 4:16 PM INDICATION / CLINICAL INFORMATION: chest pain. COMPARISON: 05/11/22 FINDINGS: SUPPORT DEVICES: None. HEART / MEDIASTINUM: Heart is enlarged but stable. LUNGS / PLEURA: Moderate right basilar pleural-parenchymal density with moderate effusion is unchanged. No pneumothorax. ADDITIONAL FINDINGS: No significant additional findings. IMPRESSION: 1. Moderate right pleural effusion with right lung base density without significant change. - Medical Decision Making 57-year-old female presents to the hospital worsening shortness of breath and chest pain and noncompliance with dialysis. Patient will be admitted to the hospital due to volume overload and need for urgent dialysis. No signs of ST elevation ND at this time. Mild troponin elevation noted and stable and likely secondary to end-stage renal disease. Case discussed with tetryl screen operator with plan for urgent dialysis tomorrow. Hospitalist to admit Critical Care Time: No Critical care attestation.: If time is entered above; I have spent that time in minutes in the direct care of this critically ill patient, excluding procedure time. ED Disposition Clinical Impression: ESRD needing dialysis, Missed dialysis, Volume overload, Pleural effusion, right, Chest pain Disposition: ADMITTED INPATIENT Is pt being admited?: Yes Condition: Stable Time of Disposition: 18:12 (Dr Zepeda/hospitalist)
[2022-07-25] MEDS ORDERED: FUROSEMIDE 40 MG/4 ML INJ IV ONE (18:12)
--- NOTE | 2022-07-25 19:15 | History and Physical Report ---
History of Present Illness Chief complaint: I feel terrible and I need dialysis History of present illness: 57 YO Female with ESRD on HD(M,W,F), DM, HTN, Obesity Hypoventilation Syndrome, Anemia Chronic Disease presents to ED for evaluation. Patient reports "I feel terrible". Patient states that she has experienced generalized weakness, shortness of breath, chest discomfort, nausea over the past 2 days with persis tent and worsening symptoms over the same timeframe. Patient knowledges noncompliance with outpatient dialysis. Patient states that she missed her last 5 dialysis sessions. EMS notified and upon arrival the patient was found to be in distress and subsequent transported to [facility] for further care and evaluation of the aforementioned symptoms. The patient was seen and evaluated in the emergency department. All lab and imaging studies reviewed. Patient found to have end-stage renal disease, fluid overload, accelerated hypertension, and right pleural effusion. Patient admitted to medical floor due to increased risk of worsening symptoms after medical stabilization. Nephrology team consulted in ED for urgent dialysis. Patient denies fever, chills, chest pain, palpitation, recent contact, known exposure to COVID-19. Prior admission on 05/11/2022 reviewed. All medication listed at time of admission has been reconciled. Advanced care planning conducted in ED. Past History Past Medical History: anemia, diabetes, ESRD, hypertension Past Surgical History: , Other (Dialysis access) Social history: , lives with family. denies: smoking, alcohol abuse, prescription drug abuse Family history: diabetes, hypertension Medications and Allergies Allergies Allergy/AdvReac Type Severity Reaction Status Date / Time No Known Allergies Allergy Verified 05/11/22 13:03 Home Medications Medication Instructions Recorded Confirmed Last Taken Type Vitamin D2 1.25 mg PO 1XW 04/05/21 05/11/22 1 Day Ago History ~05/10/22 Nifedipine ER 60 mg PO DAILY #30 03/04/22 05/11/22 1 Day Ago Rx ~05/10/22 Pantoprazole [Protonix TAB] 40 mg PO BIDAC #30 tablet 03/04/22 05/11/22 1 Day Ago Rx ~05/10/22 Losartan [Cozaar] 25 mg PO QDAY 05/11/22 05/11/22 05/11/22 History Melatonin [Melatonin 3MG TAB] 3 mg PO QHS 05/11/22 05/11/22 1 Day Ago History ~05/10/22 carvediloL [Coreg] 6.25 mg PO BID 05/11/22 05/11/22 05/11/22 History Benzonatate [Tessalon Perles] 100 mg PO Q8HR capsule 05/12/22 Unknown Rx Losartan [Cozaar] 25 mg PO QDAY tablet 05/12/22 Unknown Rx Metoprolol [Lopressor TAB] 25 mg PO BID tablet 05/12/22 Unknown Rx NIFEdipine XL [Procardia Xl] 60 mg PO QDAY tablet 05/12/22 Unknown Rx Sevelamer Carbonate [Renvela] 800 mg PO TIDWM tablet 05/12/22 Unknown Rx Review of Systems Constitutional: no weight loss, no weight gain, no fever, no chills Ears, nose, mouth and throat: no ear pain, no tinnitis Breasts: no change in shape, no swelling Cardiovascular: no chest pain, no palpitations, no rapid/irregular heart beat, no edema, no syncope Respiratory: cough with sputum, shortness of breath, no cough Gastrointestinal: no abdominal pain, no nausea, no vomiting Genitourinary Female: no pelvic pain, no flank pain, no dysuria, no urinary frequency, no urgency Rectal: no pain, no incontinence, no bleeding Musculoskeletal: no neck stiffness, no arm numbness/tingling, no low back pain, no shooting leg pain, no leg numbness/tingling Integumentary: no rash, no pruritis, no redness, no jaundice, no boils Neurological: no head injury, no paralysis, no weakness, no numbness, no tingling, no syncope Psychiatric: no anxiety, no change in sleep habits, no insomnia, no suicidal ideation Endocrine: no cold intolerance, no polyphagia, no polydipsia, no excessive sweating Hematologic/Lymphatic: no easy bruising Allergic/Immunologic: no urticaria, no allergic rhinitis, no wheezing Exam - Constitutional Vitals: Temp Pulse Resp BP Pulse Ox 97.6 F 88 18 176/89 100 07/25/22 15:21 07/25/22 15:21 07/25/22 15:21 07/25/22 15:21 07/25/22 15:21 General appearance: Present: mild distress, obese - EENT Eyes: Present: PERRL ENT: hearing intact, clear oral mucosa - Neck Neck: Present: supple, normal ROM - Respiratory Respiratory effort: normal Respiratory: bilateral: CTA - Cardiovascular Heart Sounds: Present: S1 & S2. Absent: rub, click - Extremities Extremities: pulses symmetrical, No edema Peripheral Pulses: within normal limits - Abdominal General gastrointestinal: Present: soft, non-tender, non-distended, normal bowel sounds Female genitourinary: Present: normal - Integumentary Integumentary: Present: clear, warm, dry - Musculoskeletal Musculoskeletal: gait normal, strength equal bilaterally - Psychiatric Psychiatric: appropriate mood/affect, intact judgment & insight - Neurologic Neurologic: CNII-XII intact, moves all extremities HEART Score - HEART Score EKG: Non-specific Age: 45-65 Risk factors: > 3 risk factors or hx of atherosclerotic disease Troponin: Troponin T 0.062 ng/mL (0.00-0.029) H 07/25/22 16:11 Troponin: 1-3x normal limit Results - Labs CBC & Chem 7: 07/25/22 16:11 07/25/22 16:11 Labs: Abnormal lab results 07/25/22 07/25/22 Range/Units 16:11 16:11 MCH 27 L (28-32) pg RDW 16.5 H (13.2-15.2) % Lymph % (Auto) 6.4 L (13.4-35.0) % Lymph # (Auto) 0.6 L (1.2-5.4) K/mm3 Baso # (Auto) 0.2 H (0.0-0.1) K/mm3 Seg Neutrophils % 86.6 H (40.0-70.0) % Seg Neutrophils # 8.7 H (1.8-7.7) K/mm3 Sodium 135 L (137-145) mmol/L Chloride 94.3 L (98-107) mmol/L Carbon Dioxide 19 L (22-30) mmol/L BUN 83 H (7-17) mg/dL Creatinine 9.2 H (0.6-1.2) mg/dL Glucose 143 H (65-100) mg/dL ALT < 5 L (7-56) units/L Troponin T 0.062 H (0.00-0.029) ng/mL Albumin 3.1 L (3.9-5) g/dL HDL Cholesterol 78 H (40-59) mg/dL Assessment and Plan - Patient Problems (1) End stage renal disease Status: Acute Plan to address problem: Urgent dialysis as per renal team, nephrology team consulted in ED, strict I's/O, monitor fluid balance, avoid nephrotoxic agents. (2) Fluid overload Status: Acute Plan to address problem: Urgent dialysis, supportive care, supplemental oxygen. (3) Recurrent right pleural effusion Status: Acute Plan to address problem: Urgent dialysis, supportive care, repeat chest x-ray in a.m. as clinically indicated. (4) Accelerated hypertension Status: Acute Plan to address problem: Monitor blood pressure every shift, continue medical management. (5) Obesity hypoventilation syndrome Status: Acute Plan to address problem: Balanced diet, increase physical activity discharge, outpatient pulmonary follow-up for sleep study. Noninvasive positive pressure ventilation as clinically indicated. (6) DVT prophylaxis Status: Acute Plan to address problem: SCD to bilateral lower EXTR lower extremities while in bed (7) Advance care planning Status: Acute Plan to address problem: Disease education data, care plan discussed, diagnosis discussed, prognosis discussed, patient is full code. Patient knowledges understanding and agreement with care plan, +30 minutes. (8) Preventative health care Status: Acute Plan to address problem: Patient counseled regarding noncompliance with dialysis, outpatient follow-up with primary care physician for all age and risk factor appropriate screening test. +30 minutes.
[2022-07-25] MEDS ORDERED: ACETAMINOPHEN 325 MG TAB PO PRN (19:32)
[2022-07-25] MEDS ORDERED: HYDROmorphone 0.5 MG/0.5 ML INJ IV PRN (19:32)
[2022-07-25] MEDS ORDERED: oxyCODONE /ACETAMINOPHEN 5-325MG TAB PO PRN (19:32)
[2022-07-25] MEDS ORDERED: ONDANSETRON 4 MG/2 ML INJ IV PRN (19:32)
[2022-07-25] MEDS ORDERED: ALBUTEROL 2.5 MG/3 ML NEBU IH PRN (19:32)
[2022-07-25] MEDS ORDERED: VITAMIN D2 PO SCH (19:45)
[2022-07-25] MEDS: METOPROLOL TARTRATE 25 MG TAB PO SCH (21:57)
[2022-07-25] MEDS: MELATONIN 5 MG TAB PO SCH (21:58)
[2022-07-25] MEDS ORDERED: carvediloL 6.25 MG TAB PO SCH (22:00)
[2022-07-25] MEDS ORDERED: NON-FORMULARY EACH (Melatonin [Melatonin 3mg Tab] 3 MG Tablet) PO SCH (22:00)
[2022-07-25] MEDS ORDERED: SODIUM CHLORIDE 0.9% 100 ML IV PRN (23:28)
[2022-07-25] MEDS ORDERED: HEPARIN 10,000 UNITS/10 ML VIAL IV PRN (23:28)
[2022-07-26] MEDS: BENZONATATE 100 MG CAP PO SCH ×4 (04:48→22:02)
[2022-07-26 06:14] LABS: Calcium 8.6 mg/dL (8.4-10.2)
[2022-07-26 07:00] LABS: Hepatitis B Surface Antigen Non-Reactive (Negative); Hepatitis C Virus Antibody Non-Reactive (NonReactive)
[2022-07-26] MEDS: PANTOPRAZOLE 40 MG TAB PO SCH ×2 (07:22→17:54)
[2022-07-26] MEDS: SEVELAMER CARBONATE 800 MG TAB PO SCH ×3 (08:22→17:54)
--- NOTE | 2022-07-26 09:17 | Progress Note ---
Assessment and Plan Assessment and plan: #Reccurent R pleural effusion #Pulmonary edema #Fluid overload -CXR reviewed -likely secondary to missed dialysis #End stage renal disease requiring hemodialysis #Metabolic acidosis -Patient receives outpatient dialysis and heat will on MWF schedule -Has missed 5 of the last sessions due to feeling -Renally dose medications, avoid nephrotoxins -Nephrology consulted, assistance appreciated; plan for dialysis today #NSTEMI, type II -troponin mildly elevated, likely secondary to ESRD -patient without current chest pain #Hypertension -continue home medications #Moderate protein calorie malnutrition -albumin 3.1 -nutritional supplements with meals #Obesity #Obesity hypoventilation syndrome #Weight loss counseling #Exercise counseling - Counseled patient on the importance of weight loss, incorporating exercise, and dietary changes (lean meats, fresh fruits and vegetables, and water intake). Will require outpatient pulmonary follow-up for sleep study. Patient expresses understanding. - Time: +15 min #Advanced care planning -Disease education data, care plan discussed, diagnosis discussed, prognosis discussed, patient is full code. Patient knowledges understanding and agreement with care plan, +30 minutes. History Interval history: No acute events overnight. Patient reports feeling better. She missed her last 5 hemodialysis sessions due to general malaise along with nausea and diarrhea. She is fully vaccinated against COVID-19 and has no other sick contacts. Daniel padilla with Dr. Ibarra for ESRD. Discussed current care plan. Hospitalist Physical - Physical exam Narrative exam: GENERAL: Well-developed well-nourished. In no acute distress. HEENT: Nasal cannula in place at 2 L/min NECK: Supple. CHEST/LUNGS: Decreased breath sounds at right lower lobe posteriorly. HEART/CARDIOVASCULAR: RRR. No murmur, rubs or gallops appreciated. ABDOMEN: +BS. NT/ND. SKIN: No rashes noted. NEURO: No focal motor deficit. Follows all commands. MUSCULOSKELETAL: No joint effusion EXTREMITIES: No cyanosis, clubbing or edema. Left upper extremity AV fistula with thrill. PSYCH: Cooperative. - Constitutional Vitals: Temp Pulse Resp BP Pulse Ox 97.6 F 76 16 207/103 95 07/26/22 04:38 07/26/22 04:38 07/26/22 04:38 07/26/22 04:38 07/26/22 08:06 General appearance: Present: mild distress, obese HEART Score - HEART Score EKG: Non-specific Age: 45-65 Risk factors: > 3 risk factors or hx of atherosclerotic disease Troponin: Troponin T 0.059 ng/mL (0.00-0.029) H 07/26/22 05:05 Troponin: 1-3x normal limit Results - Labs CBC & Chem 7: 07/25/22 16:11 07/26/22 05:05 Labs: Laboratory Last Values WBC 10.0 K/mm3 (4.5-11.0) 07/25/22 16:11 RBC 4.39 M/mm3 (3.65-5.03) 07/25/22 16:11 Hgb 11.9 gm/dl (10.1-14.3) 07/25/22 16:11 Hct 37.7 % (30.3-42.9) 07/25/22 16:11 MCV 86 fl (79-97) 07/25/22 16:11 MCH 27 pg (28-32) L 07/25/22 16:11 MCHC 32 % (30-34) 07/25/22 16:11 RDW 16.5 % (13.2-15.2) H 07/25/22 16:11 Plt Count 285 K/mm3 (140-440) 07/25/22 16:11 Lymph % (Auto) 6.4 % (13.4-35.0) L 07/25/22 16:11 [place] % (Auto) 3.8 % (0.0-7.3) 07/25/22 16:11 Eos % (Auto) 1.5 % (0.0-4.3) 07/25/22 16:11 Baso % (Auto) 1.7 % (0.0-1.8) 07/25/22 16:11 Lymph # (Auto) 0.6 K/mm3 (1.2-5.4) L 07/25/22 16:11 [place] # (Auto) 0.4 K/mm3 (0.0-0.8) 07/25/22 16:11 Eos # (Auto) 0.1 K/mm3 (0.0-0.4) 07/25/22 16:11 Baso # (Auto) 0.2 K/mm3 (0.0-0.1) H 07/25/22 16:11 Seg Neutrophils % 86.6 % (40.0-70.0) H 07/25/22 16:11 Seg Neutrophils # 8.7 K/mm3 (1.8-7.7) H 07/25/22 16:11 Sodium 138 mmol/L (137-145) 07/26/22 05:05 Potassium 4.7 mmol/L (3.6-5.0) 07/26/22 05:05 Chloride 95.7 mmol/L (98-107) L 07/26/22 05:05 Carbon Dioxide 21 mmol/L (22-30) L 07/26/22 05:05 Anion Gap 26 mmol/L 07/26/22 05:05 BUN 85 mg/dL (7-17) H 07/26/22 05:05 Creatinine 9.4 mg/dL (0.6-1.2) H 07/26/22 05:05 Estimated GFR 5 ml/min 07/26/22 05:05 BUN/Creatinine Ratio 9 % 07/26/22 05:05 Glucose 135 mg/dL (65-100) H 07/26/22 05:05 Calcium 8.6 mg/dL (8.4-10.2) 07/26/22 05:05 Total Bilirubin 0.20 mg/dL (0.1-1.2) 07/25/22 16:11 AST 7 units/L (5-40) 07/25/22 16:11 ALT < 5 units/L (7-56) L 07/25/22 16:11 Alkaline Phosphatase 91 units/L (35-129) 07/25/22 16:11 Troponin T 0.059 ng/mL (0.00-0.029) H 07/26/22 05:05 Total Protein 7.8 g/dL (6.3-8.2) 07/25/22 16:11 Albumin 3.1 g/dL (3.9-5) L 07/25/22 16:11 Albumin/Globulin Ratio 0.7 % 07/25/22 16:11 Triglycerides 81 mg/dL (2-149) 07/25/22 16:11 Cholesterol 132 mg/dL (50-199) 07/25/22 16:11 LDL Cholesterol Direct 51 mg/dL (50-130) 07/25/22 16:11 HDL Cholesterol 78 mg/dL (40-59) H 07/25/22 16:11 Cholesterol/HDL Ratio 1.69 % 07/25/22 16:11 Hepatitis A IgM Ab Non-reactive (NonReactive) 07/26/22 05:05 Hep Bs Antigen Non-reactive (Negative) 07/26/22 05:05 Hep B Core IgM Ab Non-reactive (NonReactive) 07/26/22 05:05 Hepatitis C Antibody Non-reactive (NonReactive) 07/26/22 05:05 Active Medications - Current Medications Current Medications: Generic Name Dose Route Start Last Admin Trade Name Freq PRN Reason Stop Dose Admin Acetaminophen 650 mg 07/25/22 19:32 Acetaminophen 325 Mg Tab PO Q4H PRN Pain MILD(1-3)/Fever >100.5/JAMA Albuterol 2.5 mg 07/25/22 19:32 Albuterol 2.5 Mg/3 Ml Nebu IH Q4HRT PRN Shortness Of Breath Benzonatate 100 mg 07/25/22 22:00 07/26/22 05:48 Benzonatate 100 Mg Cap PO 100 mg Q8HR PETE Administration Heparin Sodium (Porcine) 3,000 unit 07/25/22 23:28 Heparin 10,000 Units/10 Ml Vial IV AICHA PRN hemodialysis Hydromorphone HCl 0.5 mg 07/25/22 19:32 Hydromorphone 0.5 Mg/0.5 Ml Inj IV Q23H PRN Pain , Severe (7-10) Sodium Chloride 100 mls @ 999 mls/hr 07/25/22 23:28 Nacl 0.9% IV AICHA PRN Hypotension Losartan Potassium 25 mg 07/26/22 10:00 Losartan 25 Mg Tab PO QDAY PETE Melatonin 5 mg 07/25/22 22:00 07/25/22 21:58 Melatonin 5 Mg Tab PO 5 mg QHS PETE Administration Metoprolol Tartrate 25 mg 07/25/22 22:00 07/25/22 21:57 Metoprolol Tartrate 25 Mg Tab PO 25 mg BID@0800,1700 PETE Administration Miscellaneous Medication 1.25 mg 07/25/22 19:45 Vitamin D2 PO 1XW PETE Nifedipine 60 mg 07/26/22 10:00 Nifedipine Xl 60 Mg Tab PO DAILY PETE Ondansetron HCl 4 mg 07/25/22 19:32 Ondansetron 4 Mg/2 Ml Inj IV Q8H PRN Nausea And Vomiting Oxycodone/Acetaminophen 1 tab 07/25/22 19:32 Oxycodone /Acetaminophen 5-325mg Tab PO Q6H PRN Pain, Moderate (4-6) Pantoprazole Sodium 40 mg 07/26/22 07:30 Pantoprazole 40 Mg Tab PO BIDAC PETE Sevelamer Carbonate 800 mg 07/26/22 08:00 Sevelamer Carbonate 800 Mg Tab PO TIDWM PETE Sodium Chloride 10 ml 07/25/22 22:00 07/25/22 22:40 Sodium Chloride 0.9% 10 Ml Flush Syringe IV 10 ml BID PETE Administration Sodium Chloride 10 ml 07/25/22 19:32 Sodium Chloride 0.9% 10 Ml Flush Syringe IV PRN PRN LINE FLUSH
--- NOTE | 2022-07-26 09:49 | Consultation ---
History of Present Illness - Reason for Consult Consult date: 07/26/22 end stage renal disease - History of Present Illness The patient is a 57 YO female with history notable for Obesity, Hypertension, DM-2, CHF, Ascites and ESRD on hemodialysis (MWF) who presented to [facility] ED 07/25/22 with generalized weakness, shortness of breath, N, V & D for 2 days. Patient knowledges noncompliance with outpatient dialysis and she missed her last 5 dialysis sessions. Patient also reports increasing abdominal girth. She currently denies chest pain, cough, abdominal pain, fever, chills, dizziness or syncope. Labs and imaging results noted. Nephrology consulted for ESRD management. Past History Past Medical History: anemia, diabetes, ESRD, hypertension Past Surgical History: , Other (Dialysis access) Social history: , lives with family. denies: smoking, alcohol abuse, prescription drug abuse Family history: diabetes, hypertension Medications and Allergies Allergies Allergy/AdvReac Type Severity Reaction Status Date / Time No Known Allergies Allergy Verified 05/11/22 13:03 Home Medications Medication Instructions Recorded Confirmed Last Taken Type Vitamin D2 1.25 mg PO 1XW 04/05/21 05/11/22 1 Day Ago History ~05/10/22 Nifedipine ER 60 mg PO DAILY #30 03/04/22 05/11/22 1 Day Ago Rx ~05/10/22 Pantoprazole [Protonix TAB] 40 mg PO BIDAC #30 tablet 03/04/22 05/11/22 1 Day Ago Rx ~05/10/22 Losartan [Cozaar] 25 mg PO QDAY 05/11/22 05/11/22 05/11/22 History Melatonin [Melatonin 3MG TAB] 3 mg PO QHS 05/11/22 05/11/22 1 Day Ago History ~05/10/22 carvediloL [Coreg] 6.25 mg PO BID 05/11/22 05/11/22 05/11/22 History Benzonatate [Tessalon Perles] 100 mg PO Q8HR capsule 05/12/22 Unknown Rx Losartan [Cozaar] 25 mg PO QDAY tablet 05/12/22 Unknown Rx Metoprolol [Lopressor TAB] 25 mg PO BID tablet 05/12/22 Unknown Rx NIFEdipine XL [Procardia Xl] 60 mg PO QDAY tablet 05/12/22 Unknown Rx Sevelamer Carbonate [Renvela] 800 mg PO TIDWM tablet 05/12/22 Unknown Rx Active Meds: Active Medications Acetaminophen (Acetaminophen 325 Mg Tab) 650 mg PO Q4H PRN PRN Reason: Pain MILD(1-3)/Fever >100.5/JAMA Albuterol (Albuterol 2.5 Mg/3 Ml Nebu) 2.5 mg IH Q4HRT PRN PRN Reason: Shortness Of Breath Benzonatate (Benzonatate 100 Mg Cap) 100 mg PO Q8HR [facility] Last Admin: 07/26/22 05:48 Dose: 100 mg Heparin Sodium (Porcine) (Heparin 10,000 Units/10 Ml Vial) 3,000 unit IV AICHA PRN PRN Reason: hemodialysis Hydromorphone HCl (Hydromorphone 0.5 Mg/0.5 Ml Inj) 0.5 mg IV Q23H PRN PRN Reason: Pain , Severe (7-10) Sodium Chloride (Nacl 0.9%) 100 mls @ 999 mls/hr IV AICHA PRN PRN Reason: Hypotension Losartan Potassium (Losartan 25 Mg Tab) 25 mg PO QDAY [facility] Melatonin (Melatonin 5 Mg Tab) 5 mg PO QHS [facility] Last Admin: 07/25/22 21:58 Dose: 5 mg Metoprolol Tartrate (Metoprolol Tartrate 25 Mg Tab) 25 mg PO BID@0800,1700 [facility] Last Admin: 07/25/22 21:57 Dose: 25 mg Miscellaneous Medication (Vitamin D2) 1.25 mg PO 1XW [facility] Nifedipine (Nifedipine Xl 60 Mg Tab) 60 mg PO DAILY [facility] Ondansetron HCl (Ondansetron 4 Mg/2 Ml Inj) 4 mg IV Q8H PRN PRN Reason: Nausea And Vomiting Oxycodone/Acetaminophen (Oxycodone /Acetaminophen 5-325mg Tab) 1 tab PO Q6H PRN PRN Reason: Pain, Moderate (4-6) Pantoprazole Sodium (Pantoprazole 40 Mg Tab) 40 mg PO BIDAC [facility] Sevelamer Carbonate (Sevelamer Carbonate 800 Mg Tab) 800 mg PO TIDWM [facility] Sodium Chloride (Sodium Chloride 0.9% 10 Ml Flush Syringe) 10 ml IV BID [facility] Last Admin: 07/25/22 22:40 Dose: 10 ml Sodium Chloride (Sodium Chloride 0.9% 10 Ml Flush Syringe) 10 ml IV PRN PRN PRN Reason: LINE FLUSH Review of Systems All systems: negative Exam - Vital Signs Vital signs: Vital Signs Temp Pulse Resp BP Pulse Ox 97.6 F 88 18 176/89 100 07/25/22 15:21 07/25/22 15:21 07/25/22 15:21 07/25/22 15:21 07/25/22 15:21 Results - Lab Results 07/25/22 16:11 07/26/22 05:05 Most recent lab results Calcium 8.6 mg/dL (8.4-10.2) 07/26/22 05:05 Assessment and Plan 1. ESRD: Patient is on amintenance hemodialysis, MWF schedule. Last HD 07/14. Has L arm AVF / AVG. Meds dosage based on GFR. Hemodialysis: 07/26. 2. FEN: Volume overload, UF with HD tolerated. Counseled to limit salt and fluid intake. Metabolic acidosis, HD today. Strict renal diet. Binders as needed. Monitor lytes and volume status. 3. Reccurent R pleural effusion / h/o CHF: Volume overload and ascites. Strict I/Os, limit sodium & fluid intake. Volume control thru HD. Monitor. 4. NSTEMI, type II: Elevated troponin likely secondary to ESRD. 5. DM: Monitor bl glu. 6. HTN: Volume control thru HD. Advised to limit salt and fluid intake. Monitor BP. 7. H/o Ascites: Paracentesis. Subjective: Patient was seen and examined at the bedside. HD nurse at the bedside. General Appearance: General appearance: well-developed, appears stated age, no distress EENT: ATNC, MARIBEL, hearing intact, vision intact Neck: neck supple, trachea midline Respiratory: ctab Heart: regular, S1S2, no murmur Abdomen: soft, NT, ascites noted, BS heard Integumentary: no obvious rash Neurologic: AO, conversing, able to move extremities Ext: LE edema Hemodialysis access: L arm AVF / AVG
[2022-07-26] MEDS: METOPROLOL TARTRATE 25 MG TAB PO SCH ×2 (12:28→17:54)
[2022-07-26] MEDS: NIFEdipine XL 60 MG TAB PO SCH (12:28)
[2022-07-26] MEDS: LOSARTAN 25 MG TAB PO SCH (12:35)
[2022-07-26] MEDS ORDERED: hydrALAZINE 20 MG/1 ML INJ IV PRN (18:26)
[2022-07-26] MEDS ORDERED: hydrALAZINE 10 MG TAB PO PRN (18:27)
[2022-07-26] MEDS ORDERED: ERGOCALCIFEROL (VIT D2) 50,000 UNIT CAP PO SCH (22:00)
[2022-07-26] MEDS: MELATONIN 5 MG TAB PO SCH (22:02)
[2022-07-27] MEDS: BENZONATATE 100 MG CAP PO SCH ×3 (05:55→21:59)
[2022-07-27] MEDS: PANTOPRAZOLE 40 MG TAB PO SCH ×2 (09:34→16:23)
[2022-07-27] MEDS: NIFEdipine XL 60 MG TAB PO SCH (09:35)
[2022-07-27] MEDS: LOSARTAN 25 MG TAB PO SCH (09:35)
[2022-07-27] MEDS: SEVELAMER CARBONATE 800 MG TAB PO SCH ×3 (09:35→16:23)
[2022-07-27] MEDS: METOPROLOL TARTRATE 25 MG TAB PO SCH ×2 (09:36→16:23)
--- NOTE | 2022-07-27 11:20 | Progress Note ---
Assessment and Plan Assessment and plan: #Reccurent R pleural effusion #Pulmonary edema #Fluid overload -CXR reviewed -likely secondary to missed dialysis #End stage renal disease requiring hemodialysis #Metabolic acidosis -Patient receives outpatient dialysis and heat will on MWF schedule -missed multiple HD sessions, dialyzed yesterday with 3L removed -Renally dose medications, avoid nephrotoxins -Nephrology consulted, assistance appreciated; plan for dialysis today #NSTEMI, type II -troponin mildly elevated, likely secondary to ESRD -patient without current chest pain #Hypertension -continue home medications #Chronic ascites -patient reports paracentesis at [place] over two months ago -Hepatitis panel negative; patient without history of excessive alcohol use -will order paracentesis to evaluate bloat #Moderate protein calorie malnutrition -albumin 3.1 -nutritional supplements with meals #Obesity #Obesity hypoventilation syndrome #Weight loss counseling #Exercise counseling - Counseled patient on the importance of weight loss, incorporating exercise, and dietary changes (lean meats, fresh fruits and vegetables, and water intake). Will require outpatient pulmonary follow-up for sleep study. Patient expresses understanding. - Time: +15 min #Advanced care planning -Disease education data, care plan discussed, diagnosis discussed, prognosis discussed, patient is full code. Patient knowledges understanding and agreement with care plan, +30 minutes. History Interval history: No acute events overnight. Patient reports feeling better. She missed her last 5 hemodialysis sessions due to general malaise along with nausea and diarrhea. She is fully vaccinated against COVID-19 and has no other sick contacts. Follows with Dr. Ibarra for ESRD. Discussed current care plan. Hospitalist Physical - Physical exam Narrative exam: GENERAL: Well-developed well-nourished. In no acute distress. HEENT: Normocephalic. Excoriations diffusely on cheeks. NECK: Supple. CHEST/LUNGS: Decreased breath sounds at right lower lobe posteriorly. HEART/CARDIOVASCULAR: RRR. No murmur, rubs or gallops appreciated. ABDOMEN: +BS. NT. + Ascites. SKIN: No rashes noted. NEURO: No focal motor deficit. Follows all commands. MUSCULOSKELETAL: No joint effusion EXTREMITIES: No cyanosis, clubbing. 1+ bilateral lower extremity edema. Left upper extremity AV fistula with thrill. PSYCH: Cooperative. - Constitutional Vitals: Temp Pulse Resp BP Pulse Ox 98.8 F 79 18 163/77 93 07/27/22 04:02 07/27/22 09:36 07/27/22 04:07 07/27/22 09:36 07/27/22 04:07 General appearance: Present: mild distress, obese HEART Score - HEART Score EKG: Non-specific Age: 45-65 Risk factors: > 3 risk factors or hx of atherosclerotic disease Troponin: Troponin T 0.059 ng/mL (0.00-0.029) H 07/26/22 05:05 Troponin: 1-3x normal limit Results - Labs CBC & Chem 7: 07/25/22 16:11 07/26/22 05:05 Labs: Laboratory Last Values WBC 10.0 K/mm3 (4.5-11.0) 07/25/22 16:11 RBC 4.39 M/mm3 (3.65-5.03) 07/25/22 16:11 Hgb 11.9 gm/dl (10.1-14.3) 07/25/22 16:11 Hct 37.7 % (30.3-42.9) 07/25/22 16:11 MCV 86 fl (79-97) 07/25/22 16:11 MCH 27 pg (28-32) L 07/25/22 16:11 MCHC 32 % (30-34) 07/25/22 16:11 RDW 16.5 % (13.2-15.2) H 07/25/22 16:11 Plt Count 285 K/mm3 (140-440) 07/25/22 16:11 Lymph % (Auto) 6.4 % (13.4-35.0) L 07/25/22 16:11 [place] % (Auto) 3.8 % (0.0-7.3) 07/25/22 16:11 Eos % (Auto) 1.5 % (0.0-4.3) 07/25/22 16:11 Baso % (Auto) 1.7 % (0.0-1.8) 07/25/22 16:11 Lymph # (Auto) 0.6 K/mm3 (1.2-5.4) L 07/25/22 16:11 [place] # (Auto) 0.4 K/mm3 (0.0-0.8) 07/25/22 16:11 Eos # (Auto) 0.1 K/mm3 (0.0-0.4) 07/25/22 16:11 Baso # (Auto) 0.2 K/mm3 (0.0-0.1) H 07/25/22 16:11 Seg Neutrophils % 86.6 % (40.0-70.0) H 07/25/22 16:11 Seg Neutrophils # 8.7 K/mm3 (1.8-7.7) H 07/25/22 16:11 Sodium 138 mmol/L (137-145) 07/26/22 05:05 Potassium 4.7 mmol/L (3.6-5.0) 07/26/22 05:05 Chloride 95.7 mmol/L (98-107) L 07/26/22 05:05 Carbon Dioxide 21 mmol/L (22-30) L 07/26/22 05:05 Anion Gap 26 mmol/L 07/26/22 05:05 BUN 85 mg/dL (7-17) H 07/26/22 05:05 Creatinine 9.4 mg/dL (0.6-1.2) H 07/26/22 05:05 Estimated GFR 5 ml/min 07/26/22 05:05 BUN/Creatinine Ratio 9 % 07/26/22 05:05 Glucose 135 mg/dL (65-100) H 07/26/22 05:05 Calcium 8.6 mg/dL (8.4-10.2) 07/26/22 05:05 Total Bilirubin 0.20 mg/dL (0.1-1.2) 07/25/22 16:11 AST 7 units/L (5-40) 07/25/22 16:11 ALT < 5 units/L (7-56) L 07/25/22 16:11 Alkaline Phosphatase 91 units/L (35-129) 07/25/22 16:11 Troponin T 0.059 ng/mL (0.00-0.029) H 07/26/22 05:05 Total Protein 7.8 g/dL (6.3-8.2) 07/25/22 16:11 Albumin 3.1 g/dL (3.9-5) L 07/25/22 16:11 Albumin/Globulin Ratio 0.7 % 07/25/22 16:11 Triglycerides 81 mg/dL (2-149) 07/25/22 16:11 Cholesterol 132 mg/dL (50-199) 07/25/22 16:11 LDL Cholesterol Direct 51 mg/dL (50-130) 07/25/22 16:11 HDL Cholesterol 78 mg/dL (40-59) H 07/25/22 16:11 Cholesterol/HDL Ratio 1.69 % 07/25/22 16:11 Hepatitis A IgM Ab Non-reactive (NonReactive) 07/26/22 05:05 Hep Bs Antigen Non-reactive (Negative) 07/26/22 05:05 Hep B Core IgM Ab Non-reactive (NonReactive) 07/26/22 05:05 Hepatitis C Antibody Non-reactive (NonReactive) 07/26/22 05:05 Conde/IV: Voiding Method External Female Catheter Active Medications - Current Medications Current Medications: Generic Name Dose Route Start Last Admin Trade Name Freq PRN Reason Stop Dose Admin Acetaminophen 650 mg 07/25/22 19:32 07/27/22 05:54 Acetaminophen 325 Mg Tab PO 650 mg Q4H PRN Administration Pain MILD(1-3)/Fever >100.5/JAMA Albuterol 2.5 mg 07/25/22 19:32 Albuterol 2.5 Mg/3 Ml Nebu IH Q4HRT PRN Shortness Of Breath Benzonatate 100 mg 07/25/22 22:00 07/27/22 05:55 Benzonatate 100 Mg Cap PO 100 mg Q8HR PETE Administration Ergocalciferol 50,000 unit 07/26/22 22:00 07/26/22 22:02 Ergocalciferol (Vit D2) 50,000 Unit Cap PO 50,000 unit Sa PETE Administration Heparin Sodium (Porcine) 3,000 unit 07/25/22 23:28 Heparin 10,000 Units/10 Ml Vial IV AICHA PRN hemodialysis Hydralazine HCl 10 mg 07/26/22 18:26 Hydralazine 20 Mg/1 Ml Inj IV Q4H PRN Hypertension Hydralazine HCl 10 mg 07/26/22 18:27 Hydralazine 10 Mg Tab PO Q6H PRN Hypertension Hydromorphone HCl 0.5 mg 07/25/22 19:32 Hydromorphone 0.5 Mg/0.5 Ml Inj IV Q23H PRN Pain , Severe (7-10) Sodium Chloride 100 mls @ 999 mls/hr 07/25/22 23:28 Nacl 0.9% IV AICHA PRN Hypotension Losartan Potassium 25 mg 07/26/22 10:00 07/27/22 09:35 Losartan 25 Mg Tab PO 25 mg QDAY PETE Administration Melatonin 5 mg 07/25/22 22:00 07/26/22 22:02 Melatonin 5 Mg Tab PO 5 mg QHS PETE Administration Metoprolol Tartrate 25 mg 07/25/22 22:00 07/27/22 09:36 Metoprolol Tartrate 25 Mg Tab PO 25 mg BID@0800,1700 PETE Administration Nifedipine 60 mg 07/26/22 10:00 07/27/22 09:35 Nifedipine Xl 60 Mg Tab PO 60 mg DAILY PETE Administration Ondansetron HCl 4 mg 07/25/22 19:32 Ondansetron 4 Mg/2 Ml Inj IV Q8H PRN Nausea And Vomiting Oxycodone/Acetaminophen 1 tab 07/25/22 19:32 Oxycodone /Acetaminophen 5-325mg Tab PO Q6H PRN Pain, Moderate (4-6) Pantoprazole Sodium 40 mg 07/26/22 07:30 07/27/22 09:34 Pantoprazole 40 Mg Tab PO 40 mg BIDAC PETE Administration Sevelamer Carbonate 800 mg 07/26/22 08:00 07/27/22 09:35 Sevelamer Carbonate 800 Mg Tab PO 800 mg TIDWM PETE Administration Sodium Chloride 10 ml 07/25/22 22:00 07/27/22 09:35 Sodium Chloride 0.9% 10 Ml Flush Syringe IV 10 ml BID PETE Administration Sodium Chloride 10 ml 07/25/22 19:32 Sodium Chloride 0.9% 10 Ml Flush Syringe IV PRN PRN LINE FLUSH
--- NOTE | 2022-07-27 12:24 | Electrocardiograph Report ---
[facility] Test Date: 2022-07-26 Test Time: 10:19:43 Pat Name: KVNG HAILE Department: Room: A368 Gender: F Staff [employer]: RANDY : 1965 Requested By: ANJALI ROMAN Order Number: [id number] Reading MD: Glynn Sarabia Measurements Intervals [place] Rate: 77 P: 41 UT: 146 QRS: 18 QRSD: 78 T: 43 QT: 384 QTc: 436 Interpretive Statements Sinus rhythm possible Anteroseptal infarct, age indeterminate Compared to ECG 05/11/2022 17:12:06 & T-wave abnormality diffusely - no significant change Electronically Signed On 07-27-2022 12:23:59 EDT by Glynn Sarabia
--- NOTE | 2022-07-27 13:51 | Progress Note ---
Assessment and Plan 1. ESRD: Patient is on amintenance hemodialysis, MWF schedule. Last HD 07/14. Has L arm AVF / AVG. Meds dosage based on GFR. Hemodialysis: 07/26. 2. FEN: Volume overload, UF with HD tolerated. Counseled to limit salt and fluid intake. Metabolic acidosis, on HD. Strict renal diet. Binders as needed. Monitor lytes and volume status. 3. Reccurent R pleural effusion / h/o CHF: Volume overload and ascites. Strict I/Os, limit sodium & fluid intake. Volume control thru HD. Monitor. 4. NSTEMI, type II: Elevated troponin likely secondary to ESRD. 5. DM: Monitor bl glu. 6. HTN: Volume control thru HD. Advised to limit salt and fluid intake. Monitor BP. 7. Ascites: Paracentesis ordered. Subjective: Patient was seen and examined at the bedside. Daughter at the bedside. General Appearance: General appearance: well-developed, appears stated age, no distress EENT: ATNC, MARIBEL, hearing intact, vision intact Neck: neck supple, trachea midline Respiratory: ctab Heart: regular, S1S2, no murmur Abdomen: soft, NT, ascites noted, BS heard Integumentary: no obvious rash Neurologic: AO, conversing, able to move extremities Ext: 1+ LE edema Hemodialysis access: L arm AVF / AVG Subjective Date of service: 07/27/22 Objective - Vital Signs Vital signs: Vital Signs - 12hr 07/27/22 07/27/22 07/27/22 04:02 04:07 09:35 Temperature 98.8 F Pulse Rate 76 74 79 Respiratory 16 18 Rate Blood Pressure 150/74 163/77 O2 Sat by Pulse 84 93 Oximetry 07/27/22 09:36 Temperature Pulse Rate 79 Respiratory Rate Blood Pressure 163/77 O2 Sat by Pulse Oximetry - Lab 07/25/22 16:11 07/26/22 05:05 Most recent lab results Calcium 8.6 mg/dL (8.4-10.2) 07/26/22 05:05 Medications & Allergies - Medications Allergies/Adverse Reactions: Allergies No Known Allergies Allergy (Verified 05/11/22 13:03) Home Medications: Home Medications Medication Instructions Recorded Confirmed Last Taken Type Vitamin D2 1.25 mg PO 1XW 04/05/21 07/27/22 1 Day Ago History ~05/10/22 Nifedipine ER 60 mg PO DAILY #30 03/04/22 07/27/22 1 Day Ago Rx ~05/10/22 Pantoprazole [Protonix TAB] 40 mg PO BIDAC #30 tablet 03/04/22 07/27/22 1 Day Ago Rx ~05/10/22 Losartan [Cozaar] 25 mg PO QDAY 05/11/22 07/27/22 05/11/22 History Melatonin [Melatonin 3MG TAB] 3 mg PO QHS 05/11/22 07/27/22 1 Day Ago History ~05/10/22 carvediloL [Coreg] 6.25 mg PO BID 05/11/22 07/27/22 05/11/22 History Benzonatate [Tessalon Perles] 100 mg PO Q8HR capsule 05/12/22 07/27/22 Unknown Rx Losartan [Cozaar] 25 mg PO QDAY tablet 05/12/22 07/27/22 Unknown Rx Metoprolol [Lopressor TAB] 25 mg PO BID tablet 05/12/22 07/27/22 Unknown Rx NIFEdipine XL [Procardia Xl] 60 mg PO QDAY tablet 05/12/22 07/27/22 Unknown Rx Sevelamer Carbonate [Renvela] 800 mg PO TIDWM tablet 05/12/22 07/27/22 Unknown Rx Active Medications: Generic Name Dose Route Start Last Admin Trade Name Freq PRN Reason Stop Dose Admin Acetaminophen 650 mg 07/25/22 19:32 07/27/22 05:54 Acetaminophen 325 Mg Tab PO 650 mg Q4H PRN Administration Pain MILD(1-3)/Fever >100.5/JAMA Albuterol 2.5 mg 07/25/22 19:32 Albuterol 2.5 Mg/3 Ml Nebu IH Q4HRT PRN Shortness Of Breath Benzonatate 100 mg 07/25/22 22:00 07/27/22 13:50 Benzonatate 100 Mg Cap PO 100 mg Q8HR PETE Administration Ergocalciferol 50,000 unit 07/26/22 22:00 07/26/22 22:02 Ergocalciferol (Vit D2) 50,000 Unit Cap PO 50,000 unit Sa PETE Administration Heparin Sodium (Porcine) 3,000 unit 07/25/22 23:28 Heparin 10,000 Units/10 Ml Vial IV AICHA PRN hemodialysis Hydralazine HCl 10 mg 07/26/22 18:26 Hydralazine 20 Mg/1 Ml Inj IV Q4H PRN Hypertension Hydralazine HCl 10 mg 07/26/22 18:27 Hydralazine 10 Mg Tab PO Q6H PRN Hypertension Hydromorphone HCl 0.5 mg 07/25/22 19:32 Hydromorphone 0.5 Mg/0.5 Ml Inj IV Q23H PRN Pain , Severe (7-10) Sodium Chloride 100 mls @ 999 mls/hr 07/25/22 23:28 Nacl 0.9% IV AICHA PRN Hypotension Losartan Potassium 25 mg 07/26/22 10:00 07/27/22 09:35 Losartan 25 Mg Tab PO 25 mg QDAY PETE Administration Melatonin 5 mg 07/25/22 22:00 07/26/22 22:02 Melatonin 5 Mg Tab PO 5 mg QHS PETE Administration Metoprolol Tartrate 25 mg 07/25/22 22:00 07/27/22 09:36 Metoprolol Tartrate 25 Mg Tab PO 25 mg BID@0800,1700 PETE Administration Nifedipine 60 mg 07/26/22 10:00 07/27/22 09:35 Nifedipine Xl 60 Mg Tab PO 60 mg DAILY PETE Administration Ondansetron HCl 4 mg 07/25/22 19:32 Ondansetron 4 Mg/2 Ml Inj IV Q8H PRN Nausea And Vomiting Oxycodone/Acetaminophen 1 tab 07/25/22 19:32 Oxycodone /Acetaminophen 5-325mg Tab PO Q6H PRN Pain, Moderate (4-6) Pantoprazole Sodium 40 mg 07/26/22 07:30 07/27/22 09:34 Pantoprazole 40 Mg Tab PO 40 mg BIDAC PETE Administration Sevelamer Carbonate 800 mg 07/26/22 08:00 07/27/22 12:27 Sevelamer Carbonate 800 Mg Tab PO 800 mg TIDWM PETE Administration Sodium Chloride 10 ml 07/25/22 22:00 07/27/22 09:35 Sodium Chloride 0.9% 10 Ml Flush Syringe IV 10 ml BID PETE Administration Sodium Chloride 10 ml 07/25/22 19:32 Sodium Chloride 0.9% 10 Ml Flush Syringe IV PRN PRN LINE FLUSH
[2022-07-27] MEDS ORDERED: SODIUM CHLORIDE 0.9% 100 ML IV PRN (19:58)
[2022-07-27] MEDS: MELATONIN 5 MG TAB PO SCH (21:59)
[2022-07-28] MEDS: BENZONATATE 100 MG CAP PO SCH ×2 (05:55→13:30)
--- NOTE | 2022-07-28 08:00 | Discharge Summary ---
Providers - Providers Date of Admission: 07/25/22 19:32 Attending physician: ZAID DANIEL MD 07/25/22 17:52 Consult to Physician [CONS] Urgent Comment: Consulting Provider: SOFYA BROWN Physician Instructions: Reason For Exam: esrd volume overload, noncompliance Primary care physician: MARILYN GUZMAN Hospitalization Condition: Stable Disposition: 30 STILL A PATIENT Exam - Constitutional Vitals: Temp Pulse Resp BP Pulse Ox 97.5 F L 70 20 168/74 90 07/28/22 05:29 07/28/22 05:29 07/28/22 05:29 07/28/22 05:29 07/28/22 05:29 Plan Care Plan Goals: Please follow-up with your primary care provider. In order to keep the fluid from accumulating in your body, it is important that you go to dialysis and not miss any sessions. Please take all medications as they are prescribed to you. Another way to reduce the amount of fluid that you have in your body is to limit the amount of salt and fluids you consume daily. You should not drink or eat more than 1-1/2 L of liquid daily. Keep salt intake to less than 1500 mg daily. Follow up with: MARILYN GUZMAN MD [Primary Care Provider] - 7 Days
[2022-07-28] MEDS: METOPROLOL TARTRATE 25 MG TAB PO SCH ×2 (09:05→16:23)
[2022-07-28] MEDS: LOSARTAN 25 MG TAB PO SCH (09:05)
[2022-07-28] MEDS: NIFEdipine XL 60 MG TAB PO SCH (09:05)
[2022-07-28] MEDS: PANTOPRAZOLE 40 MG TAB PO SCH ×2 (09:06→16:23)
[2022-07-28] MEDS: SEVELAMER CARBONATE 800 MG TAB PO SCH ×3 (09:06→16:23)
--- NOTE | 2022-07-28 13:16 | Progress Note ---
Assessment and Plan 1. ESRD: Patient is on amintenance hemodialysis, MWF schedule. Last HD 07/14. Has L arm AVF / AVG. Meds dosage based on GFR. Hemodialysis: 07/26, 07/28. 2. FEN: Volume overload, UF with HD tolerated. Counseled to limit salt and fluid intake. Metabolic acidosis, on HD. Strict renal diet. Binders as needed. Monitor lytes and volume status. 3. Reccurent R pleural effusion / h/o CHF: Volume overload and ascites. Strict I/Os, limit sodium & fluid intake. Volume control thru HD. Monitor. 4. NSTEMI, type II: Elevated troponin likely secondary to ESRD. 5. DM: Monitor bl glu. 6. HTN: Volume control thru HD. Advised to limit salt and fluid intake. Monitor BP. 7. Ascites: Paracentesis ordered. Compliance encouraged. Subjective: Patient was seen and examined at the bedside. HD nurse at the bedside. General Appearance: General appearance: well-developed, appears stated age, no distress EENT: ATNC, MARIBEL, hearing intact, vision intact Neck: neck supple, trachea midline Respiratory: ctab Heart: regular, S1S2, no murmur Abdomen: soft, NT, ascites noted, BS heard Integumentary: no obvious rash Neurologic: AO, conversing, able to move extremities Ext: 1+ LE edema Hemodialysis access: L arm AVF / AVG Subjective Date of service: 07/28/22 Objective - Vital Signs Vital signs: Vital Signs - 12hr 07/28/22 07/28/22 07/28/22 05:29 08:27 09:20 Temperature 97.5 F L 97.7 F Pulse Rate 70 71 Respiratory 20 20 Rate Blood Pressure 168/74 192/78 O2 Sat by Pulse 90 92 Oximetry O2 Sat by Pulse 90 Oximetry [ Posterior Bilateral] 07/28/22 07/28/22 07/28/22 09:35 09:40 09:45 Temperature Pulse Rate 79 89 70 Respiratory Rate Blood Pressure 193/89 214/99 183/89 O2 Sat by Pulse Oximetry O2 Sat by Pulse Oximetry [ Posterior Bilateral] 07/28/22 07/28/22 07/28/22 10:00 10:15 10:30 Temperature Pulse Rate 69 72 71 Respiratory Rate Blood Pressure 175/88 195/94 165/85 O2 Sat by Pulse Oximetry O2 Sat by Pulse Oximetry [ Posterior Bilateral] 07/28/22 07/28/22 07/28/22 10:45 11:00 11:15 Temperature Pulse Rate 68 72 65 Respiratory Rate Blood Pressure 173/84 177/90 161/82 O2 Sat by Pulse 98 Oximetry O2 Sat by Pulse Oximetry [ Posterior Bilateral] 07/28/22 07/28/22 07/28/22 11:30 11:45 12:00 Temperature Pulse Rate 70 73 68 Respiratory Rate Blood Pressure 179/88 184/90 174/83 O2 Sat by Pulse Oximetry O2 Sat by Pulse Oximetry [ Posterior Bilateral] 07/28/22 07/28/22 07/28/22 12:15 12:30 12:45 Temperature Pulse Rate 69 69 70 Respiratory Rate Blood Pressure 180/85 164/77 168/75 O2 Sat by Pulse Oximetry O2 Sat by Pulse Oximetry [ Posterior Bilateral] - Lab 07/25/22 16:11 07/26/22 05:05 Most recent lab results Calcium 8.6 mg/dL (8.4-10.2) 07/26/22 05:05 Medications & Allergies - Medications Allergies/Adverse Reactions: Allergies No Known Allergies Allergy (Verified 05/11/22 13:03) Home Medications: Home Medications Medication Instructions Recorded Confirmed Last Taken Type Vitamin D2 1.25 mg PO 1XW 04/05/21 07/27/22 1 Day Ago History ~05/10/22 Pantoprazole [Protonix TAB] 40 mg PO BIDAC #30 tablet 03/04/22 07/27/22 1 Day Ag o Rx ~05/10/22 Losartan [Cozaar] 25 mg PO QDAY 05/11/22 07/27/22 05/11/22 History Melatonin [Melatonin 3MG TAB] 3 mg PO QHS 05/11/22 07/27/22 1 Day Ago History ~05/10/22 Benzonatate [Tessalon Perles] 100 mg PO Q8HR capsule 05/12/22 07/27/22 Unknown Rx Losartan [Cozaar] 25 mg PO QDAY tablet 05/12/22 07/27/22 Unknown Rx Metoprolol [Lopressor TAB] 25 mg PO BID tablet 05/12/22 07/27/22 Unknown Rx NIFEdipine XL [Procardia Xl] 60 mg PO QDAY tablet 05/12/22 07/27/22 Unknown Rx Sevelamer Carbonate [Renvela] 800 mg PO TIDWM tablet 05/12/22 07/27/22 Unknown Rx Active Medications: Generic Name Dose Route Start Last Admin Trade Name Minq PRN Reason Stop Dose Admin Acetaminophen 650 mg 07/25/22 19:32 07/27/22 05:54 Acetaminophen 325 Mg Tab PO 650 mg Q4H PRN Administration Pain MILD(1-3)/Fever >100.5/JAMA Albuterol 2.5 mg 07/25/22 19:32 Albuterol 2.5 Mg/3 Ml Nebu IH Q4HRT PRN Shortness Of Breath Benzonatate 100 mg 07/25/22 22:00 07/28/22 05:55 Benzonatate 100 Mg Cap PO 100 mg Q8HR PETE Administration Ergocalciferol 50,000 unit 07/26/22 22:00 07/26/22 22:02 Ergocalciferol (Vit D2) 50,000 Unit Cap PO 50,000 unit Sa PETE Administration Heparin Sodium (Porcine) 3,000 unit 07/25/22 23:28 Heparin 10,000 Units/10 Ml Vial IV AICHA PRN hemodialysis Hydralazine HCl 10 mg 07/26/22 18:26 Hydralazine 20 Mg/1 Ml Inj IV Q4H PRN Hypertension Hydralazine HCl 10 mg 07/26/22 18:27 Hydralazine 10 Mg Tab PO Q6H PRN Hypertension Hydromorphone HCl 0.5 mg 07/25/22 19:32 Hydromorphone 0.5 Mg/0.5 Ml Inj IV Q23H PRN Pain , Severe (7-10) Sodium Chloride 100 mls @ 999 mls/hr 07/27/22 19:58 Nacl 0.9% IV AICHA PRN Hypotension Losartan Potassium 25 mg 07/26/22 10:00 07/28/22 09:05 Losartan 25 Mg Tab PO Not Given QDAY PETE Melatonin 5 mg 07/25/22 22:00 07/27/22 21:59 Melatonin 5 Mg Tab PO 5 mg QHS PETE Administration Metoprolol Tartrate 25 mg 07/25/22 22:00 07/28/22 09:05 Metoprolol Tartrate 25 Mg Tab PO Not Given BID@0800,1700 PETE Nifedipine 60 mg 07/26/22 10:00 07/28/22 09:05 Nifedipine Xl 60 Mg Tab PO Not Given DAILY PETE Ondansetron HCl 4 mg 07/25/22 19:32 Ondansetron 4 Mg/2 Ml Inj IV Q8H PRN Nausea And Vomiting Oxycodone/Acetaminophen 1 tab 07/25/22 19:32 Oxycodone /Acetaminophen 5-325mg Tab PO Q6H PRN Pain, Moderate (4-6) Pantoprazole Sodium 40 mg 07/26/22 07:30 07/28/22 09:06 Pantoprazole 40 Mg Tab PO 40 mg BIDAC PETE Administration Sevelamer Carbonate 800 mg 07/26/22 08:00 07/28/22 11:56 Sevelamer Carbonate 800 Mg Tab PO Not Given TIDWM PETE Sodium Chloride 10 ml 07/25/22 22:00 07/28/22 09:06 Sodium Chloride 0.9% 10 Ml Flush Syringe IV 10 ml BID PETE Administration Sodium Chloride 10 ml 07/25/22 19:32 Sodium Chloride 0.9% 10 Ml Flush Syringe IV PRN PRN LINE FLUSH
[2022-07-28 13:36] VITALS: BP 197/94
--- NOTE | 2022-07-28 15:28 | Procedure Note ---
Date of procedure: 07/28/22 Pre-op diagnosis: ascites Post-op diagnosis: same Procedure: US paracentesis Findings: large ascites Anesthesia: local Surgeon: ROMMEL SALGADO Estimated blood loss: none Pathology: none Specimen disposition: discarded Condition: stable Disposition: floor
--- NOTE | 2022-07-28 16:06 | Ultrasound Report ---
ULTRASOUND-GUIDED PARACENTESIS HISTORY: theraputic; ascites. PROCEDURE: The risks (including but not limited to bleeding, infection, and bowel injury) and benefi ts were explained to the patient and informed consent was obtained. A time out procedure was perform ed. Ultrasound was used to evaluate the abdomen and locate the largest ascites fluid pocket. Once the sk in was marked, the procedure site was prepped and draped in the usual sterile fashion and lidocaine w as used for local anesthesia. A 5 [place] centesis catheter was placed. The patient was monitored cl osely throughout the procedure, and a total of 5400 mL of clear yellow fluid was aspirated. No labs were ordered. The patient tolerated the procedure well with no complications. IMPRESSION: Successful ultrasound-guided paracentesis as described. Signer Name: Livan Hill Jr, MD Signed: 07/28/2022 4:02 PM Workstation Name: [id number]
--- NOTE | 2022-07-30 13:54 | Electrocardiograph Report ---
[facility] Test Date: 2022-07-25 Test Time: 17:37:37 Pat Name: KVNG HAILE Department: Room: A368 Gender: F Bottom Sander: FLACA : 1965 Requested By: ANJALI ROMAN Order Number: [id number] Reading MD: Nerissa Dos Santos Measurements Intervals [place] Rate: 85 P: 40 NC: 133 QRS: -1 QRSD: 79 T: 30 QT: 369 QTc: 439 Interpretive Statements Sinus rhythm Anteroseptal infarct, age indeterminate Low voltage QRS Compared to ECG 05/11/2022 17:12:06 No significant change Electronically Signed On 07-30-2022 13:54:08 EDT by Nerissa Dos Santos
== END 2022-07-28 17:10 | disposition home or self-care (01) | DRG 640 ==
LOC: ED 15:10 → 3A 19:32
PROVIDERS: ADMIT Internal Medicine; ATTEND Student in an Organized Health Care Education/Training Program
PROC: 5A1D70Z Performance of Urinary Filtration, Intermittent, Less than 6 Hours Per Day (ICD-10-PCS; 2022-07-26)
PROC: 0W9G3ZZ Drainage of Peritoneal Cavity, Percutaneous Approach (ICD-10-PCS; principal; 2022-07-28)
PROC: 5A1D70Z Performance of Urinary Filtration, Intermittent, Less than 6 Hours Per Day (ICD-10-PCS; 2022-07-28)
DX: E87.70 Fluid overload, unspecified (principal); I21.A1 Myocardial infarction type 2; N18.6 End stage renal disease; J81.1 Chronic pulmonary edema; I13.2 Hypertensive heart and chronic kidney disease with heart failure and with stage 5 chronic kidney disease, or end stage renal disease; E66.2 Morbid (severe) obesity with alveolar hypoventilation; E44.0 Moderate protein-calorie malnutrition; R18.8 Other ascites; E11.22 Type 2 diabetes mellitus with diabetic chronic kidney disease; Z99.2 Dependence on renal dialysis; K21.9 Gastro-esophageal reflux disease without esophagitis; E87.2 Acidosis; I50.9 Heart failure, unspecified; Z68.38 Body mass index [BMI] 38.0-38.9, adult
CPT/HCPCS: 36415; 49083; 71045; 80048; 80053; 80061; 80074; 84484; 85025; 93005; 94760; 96374; 99285; G0378; C1729; J1940